=== PATIENT | male | born 1930 | race Caucasian/White ===

== ENCOUNTER 2017-10-16 07:23 | Inpatient (IN) | payer MEDICARE, BC ==
[2017-10-16] MEDS ORDERED: Sodium Chloride 0.9% 10 ML Syringe FLUSH PRN ×3 (08:18→13:45)
[2017-10-16] MEDS ORDERED: Furosemide 40 MG/4 ML VIAL IVPUSH ONE (08:18)
[2017-10-16] MEDS ORDERED: Furosemide 40 MG Tab PO ONE (08:24)
[2017-10-16] MEDS ORDERED: Albuterol/Ipratropium 3.0-0.5 MG/3 ML Neb Soln NEB ONE (08:25)
--- NOTE | 2017-10-16 08:30 | EDM.PDOC ---
ED HPI GENERAL MEDICAL PROBLEM - General Chief Complaint: Respiratory Problem Stated Complaint: SOB Time Seen by Provider: 10/16/17 08:20 Source of Information: Reports: Patient, Family, Old Records, RN History Limitations: Reports: No Limitations - History of Present Illness INITIAL COMMENTS - FREE TEXT/NARRATIVE: 87 yo male here with dyspnea. Was seen recently by rheumatology who noted the respiratory difficulty and prescribed azithromycin. Was advised to increase his furosemide starting yesterday to 40 mg orally daily for 2 days from 20. He is now out of this med and has not been able to get to the pharmacy during their hrs. Had a low grade fever a couple days ago. Cough is occasionally productive. Has a dx of asthma, but currently only takes Singulair for it. SOB is worse today with exertion. Onset: Gradual Onset Date: 10/14/17 Duration: Day(s):, Getting Worse Location: Reports: Chest Quality: Reports: Other (no pain) Severity: Moderate Improves with: Reports: Rest Worsens with: Reports: Movement Context: Reports: Other (Hx of afib/CHF/ and asthma) Associated Symptoms: Reports: Cough, Fever/Chills (not yesterday or today) Treatments SUSTAINABILITY EXECUTIVE DIRECTOR: Reports: Other (see below) (usual meds + azithromycin) Denies Pain Score (Numeric/FACES): 0 - Related Data Allergies Allergy/AdvReac Type Severity Reaction Status Date / Time No Known Allergies Allergy Verified 10/16/17 07:33 Home Meds: Home Meds Gabapentin [Neurontin] 300 mg PO TID 03/14/14 [History] Levothyroxine 112 mcg PO ACBRK 03/14/14 [History] PARoxetine [Paxil] 20 mg PO BEDTIME 03/14/14 [History] Ranitidine [Zantac] 150 mg PO BID 03/14/14 [History] predniSONE [Prednisone] 10 mg PO ASDIRECTED #21 tablet 03/16/14 [Rx] Albuterol Sulfate [Albuterol Sulfate HFA] 2 puff INH Q4H PRN 06/01/14 [History] Mometasone Furoate [Asmanex 220 MCG] 2 puff INH DAILY 06/01/14 [History] [place]-3/DHA/Epa/Fish Oil [Fish Oil Dr 500 mg Softgel] 1,000 mg PO DAILY [History] Sulfamethoxazole/Trimethoprim [Bactrim Ds Tablet] 1 tab PO DAILY 06/01/14 [ History] Terazosin [Hytrin] 5 mg PO DAILY 06/01/14 [History] Vitamin B Complex [B Complex] 1 tab PO DAILY 06/01/14 [History] Sotalol [Betapace] 80 mg PO BID #60 tablet 06/08/14 [Rx] Azithromycin [Zithromax] 250 mg PO DAILY 10/16/17 [History] Montelukast [Singulair] 10 mg PO DAILY 10/16/17 [History] Past Medical History HEENT History: Reports: Hard of Hearing, Impaired Vision Cardiovascular History: Reports: Afib, Other (See Below) 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 Respiratory History: Reports: Asthma Genitourinary History: Reports: Prostate Disorder Musculoskeletal History: Reports: Arthritis Endocrine/Metabolic History: Reports: Hypothyroidism Oncologic (Cancer) History: Reports: Squamous Cell Carcinoma Other Oncologic History: skin - Infectious Disease History Infectious Disease History: Reports: Chicken Pox - Past Surgical History HEENT Surgical History: Reports: Cataract Surgery GI Surgical History: Reports: Cholecystectomy Musculoskeletal Surgical History: Reports: Hip Replacement, Other (See Below) Other Musculoskeletal Surgeries/Procedures:: foot drop Social & Family History - Tobacco Use Smoking Status *Q: Never Smoker Second Hand Smoke Exposure: No - Caffeine Use Caffeine Use: Reports: Coffee, Soda - Alcohol Use Days Per Week of Alcohol Use: 0 - Recreational Drug Use Recreational Drug Use: No ED ROS GENERAL - Review of Systems Review Of Systems: See Below Constitutional: Reports: No Symptoms HEENT: Reports: No Symptoms Respiratory: Reports: Shortness of Breath, Wheezing, Cough, Sputum (minimal). Denies: Pleuritic Chest Pain, Hemoptysis Cardiovascular: Reports: No Symptoms GI/Abdominal: Reports: No Symptoms : Reports: No Symptoms Musculoskeletal: Reports: No Symptoms Skin: Reports: No Symptoms Neurological: Reports: No Symptoms ED EXAM, GENERAL - Physical Exam Exam: See Below Exam Limited By: No Limitations General Appearance: Alert, WD/WN, Mild Distress Eye Exam: Bilateral Eye: Normal Inspection Ears: Normal External Exam, Normal Canal, Hearing Grossly Normal, Normal TMs Ear Exam: Bilateral Ear: Auricle Normal, Canal Normal, TM normal Nose: Normal Inspection, Normal Mucosa, No Blood Throat/Mouth: Normal Inspection, Normal Lips, Normal Oropharynx, Normal Voice, No Airway Compromise Head: Atraumatic, Normocephalic Neck: Normal Inspection, Supple, Non-Tender Respiratory/Chest: No Accessory Muscle Use, Wheezing Cardiovascular: Irregularly Irregular (rate controlled), Other (trace pitting edema to both LE's below the knees.) Back Exam: Normal Inspection Extremities: Normal Inspection, Normal Range of Motion, Non-Tender, Pedal Edema. No: No Pedal Edema Neurological: Alert, Oriented, CN II-XII Intact, Normal Cognition, No Motor/ Sensory Deficits Psychiatric: Normal Affect, Normal Mood Skin Exam: Warm, Dry, Intact, Normal Color, No Rash Course - Vital Signs Text/Narrative:: furosemide 40 mg po Duoneb-modest improvement, sats are up to low 90's Dr. Mendoza called @ 11:39a Last Recorded V/S: Last Vital Signs Temp 36.3 C 10/16/17 08:03 Pulse 67 10/16/17 08:00 Resp 25 H 10/16/17 08:00 BP 105/64 10/16/17 08:00 Pulse Ox 91 L 10/16/17 08:00 - Orders/Labs/Meds Orders: Active Orders 24 hr Category Date Time Status RT Aerosol Therapy [RC] ASDIRECTED Care 10/16/17 08:25 Active RT Aerosol Therapy [RC] ASDIRECTED Care 10/16/17 08:58 Active Echo Comp wo Cont [US] Routine Exams 10/16/17 09:18 Ordered Sodium Chloride 0.9% [Saline Flush] Med 10/16/17 08:57 Active 10 ml FLUSH ASDIRECTED PRN Saline Lock Insert [OM.PC] Routine Oth 10/16/17 08:57 Ordered Medication Orders Sodium Chloride (Saline Flush) 10 ml FLUSH ASDIRECTED PRN PRN Reason: Keep Vein Open Last Admin: 10/16/17 09:43 Dose: 10 ml Labs: Laboratory Tests 10/16/17 10/16/17 Range/Units 09:10 09:10 WBC 6.7 (4.5-11.0) K/uL RBC 3.87 L (4.30-5.90) M/uL Hgb 12.2 (12.0-15.0) g/dL Hct 35.9 L (40.0-54.0) % MCV 93 (80-98) fL MCH 32 H (27-31) pg MCHC 34 (32-36) % Plt Count 131 L (150-400) K/uL Sodium 131 L (140-148) mmol/L Potassium 4.3 (3.6-5.2) mmol/L Chloride 96 L (100-108) mmol/L Carbon Dioxide 27 (21-32) mmol/L Anion Gap 12.3 (5.0-14.0) mmol/L BUN 25 H (7-18) mg/dL Creatinine 1.5 H D (0.8-1.3) mg/dL Est Cr Clr Drug Dosing 32.38 mL/min Estimated GFR (MDRD) 44 L (>60) Glucose 100 (74-106) mg/dL Calcium 8.8 (8.5-10.1) mg/dL NT-Pro-B Natriuret Pep 4258 H (5-450) pg/mL Meds: Medications Generic Name Dose Route Start Last Admin Trade Name Freq PRN Reason Stop Dose Admin Sodium Chloride 10 ml 10/16/17 08:57 10/16/17 09:43 Saline Flush FLUSH 10 ml ASDIRECTED PRN Administration Keep Vein Open Discontinued Medications Generic Name Dose Route Start Last Admin Trade Name Freq PRN Reason Stop Dose Admin Albuterol 2.5 mg 10/16/17 08:58 10/16/17 09:44 Proventil Neb Soln NEB 10/16/17 08:59 2.5 mg ONETIME ONE Administration Albuterol/Ipratropium 3 ml 10/16/17 08:25 10/16/17 08:37 Duoneb 3.0-0.5 Mg/3 Ml NEB 10/16/17 08:26 3 ml ONETIME ONE Administration Furosemide 40 mg 10/16/17 08:18 Lasix IVPUSH 10/16/17 08:19 ONETIME ONE Furosemide 40 mg 10/16/17 08:24 10/16/17 08:36 Lasix PO 10/16/17 08:25 40 mg ONETIME ONE Administration Methylprednisolone Sodium Succinate 40 mg 10/16/17 08:56 10/16/17 09:43 Solu-Medrol IVPUSH 10/16/17 08:57 40 mg ONETIME ONE Administration Sodium Chloride 10 ml 10/16/17 08:18 Saline Flush FLUSH ASDIRECTED PRN Keep Vein Open - Radiology Interpretation Free Text/Narrative:: CXR-cardiomegaly, atelectasis vs. infiltrate, slight interstitial edema Departure - Departure Time of Disposition: 11:50 Disposition: Refer to Observation Condition: Fair Clinical Impression: Hyponatremia Exacerbation of asthma Qualifiers: Asthma severity: moderate Asthma persistence: unspecified Qualified Code(s): J45.901 - Unspecified asthma with (acute) exacerbation CHF (congestive heart failure) Qualifiers: Heart failure type: unspecified Heart failure chronicity: acute on chronic Qualified Code(s): I50.9 - Heart failure, unspecified - Discharge Information Referrals: Sander Coleman MD [Primary Care Provider] - Forms: ED Department Discharge - My Orders Last 24 Hours: My Active Orders 10/16/17 08:25 RT Aerosol Therapy [RC] ASDIRECTED 10/16/17 08:57 Sodium Chloride 0.9% [Saline Flush] 10 ml FLUSH ASDIRECTED PRN Saline Lock Insert [OM.PC] Routine 10/16/17 08:58 RT Aerosol Therapy [RC] ASDIRECTED 10/16/17 09:18 Echo Comp wo Cont [US] Routine - Assessment/Plan Last 24 Hours: My Active Orders 10/16/17 08:25 RT Aerosol Therapy [RC] ASDIRECTED 10/16/17 08:57 Sodium Chloride 0.9% [Saline Flush] 10 ml FLUSH ASDIRECTED PRN Saline Lock Insert [OM.PC] Routine 10/16/17 08:58 RT Aerosol Therapy [RC] ASDIRECTED 10/16/17 09:18 Echo Comp wo Cont [US] Routine
[2017-10-16] MEDS ORDERED: methylPREDNISolone Sodium Succinate 40 MG/1 ML SDV IVPUSH ONE (08:56)
[2017-10-16] MEDS ORDERED: Albuterol 0.083% 2.5 MG/3 ML Neb Soln NEB ONE (08:58)
--- NOTE | 2017-10-16 09:56 | CR ---
CHEST: 2 view CLINICAL HISTORY:Shortness of breath and wheezing COMPARISON:None available FINDINGS: The heart is enlarged. There is mild pulmonary vascular cephalization. There is mild gener alized interstitial prominence. There is patchy density in the lung bases and right middle lobe. This may represent some patchy atelectasis. Pneumonic infiltrate is not excluded the in the appropriate c linical setting. There are small bibasal effusions. IMPRESSION: Cardiomegaly with moderate vascular cephalization some interstitial edema suggests mild CHF. The There is some patchy density in both lung bases. The superimposed pneumonic infiltrate is not exclude d
[2017-10-16] MEDS ORDERED: Metoprolol Tartrate 50 MG Tab PO SCH (13:45)
[2017-10-16] MEDS ORDERED: Albuterol 0.083% 2.5 MG/3 ML Neb Soln NEB PRN (13:45)
[2017-10-16] MEDS ORDERED: Polyethylene Glycol 3350 Powder 17 GM Packet PO PRN (13:45)
[2017-10-16] MEDS ORDERED: Magnesium Hydroxide 400 MG/5 ML Susp 30 ML Cup PO PRN (13:45)
[2017-10-16] MEDS ORDERED: Ondansetron 4 MG/2 ML SDV IV PRN (13:45)
[2017-10-16] MEDS ORDERED: Acetaminophen 325 MG Tab PO PRN (13:45)
[2017-10-16] MEDS ORDERED: Montelukast 10 MG Tab PO SCH (13:45)
[2017-10-16] MEDS ORDERED: oxyCODONE 5 MG Tab PO PRN (13:45)
[2017-10-16] MEDS: Albuterol/Ipratropium 3.0-0.5 MG/3 ML Neb Soln NEB SCH ×2 (14:33→21:43)
[2017-10-16] MEDS: Mometasone Furoate Powder 220 MCG/Puff 14 Dose Inhaler INH SCH (14:35)
[2017-10-16] MEDS: Levofloxacin/Dextrose 5%-Water 500 MG in Premix Bag 1 BAG IV SCH (14:56)
[2017-10-16] MEDS: Enoxaparin 40 MG/0.4 ML Syringe SUBCUT SCH (15:01)
[2017-10-16] MEDS: Levothyroxine 112 MCG Tab PO SCH (15:04)
[2017-10-16] MEDS: Sulfamethoxazole/Trimethoprim 800-160 MG Tab PO SCH (15:05)
[2017-10-16] MEDS: Terazosin 5 MG Cap PO SCH (15:05)
[2017-10-16] MEDS: Gabapentin 300 MG Cap PO SCH ×2 (15:08→21:43)
--- NOTE | 2017-10-16 15:11 | PCM.HP ---
H&P History of Present Illness - General Date of Service: 10/16/17 Admit Problem/Dx: Admission Diagnosis/Problem Admission Diagnosis/Problem Hypoxia Source of Information: Patient, Family, Provider, RN Notes Reviewed History Limitations: Reports: No Limitations - History of Present Illness Initial Comments - Free Text/Narative: This patient is an 87-year-old gentleman who was admitted through the emergency department for further evaluation and management of hypoxia, secondary to COPD exacerbation and underlying bronchitis. He has a known history of multiple medical problems including known coronary artery disease, congestive heart failure, as well as significant aortic valvular disease. He had been previously scheduled for aortic valve replacement, surgery was canceled when he developed a respiratory tract infection. Since then he has decided he wants to hold off on the valvular surgery as he had been doing fairly well for a few months. Now over the past 2 days his developed increased shortness of breath with a cough productive of colored sputum. He was seen and evaluated in the clinic yesterday by his operational intelligence officer, at that time he was started on a course of azithromycin. Unfortunately this is not helped significantly and he presented to the emergency department this morning because of ongoing severe shortness of breath. Initially was found to be hypoxic, this has improved in the emergency department with management including nebulizer therapy and Solu-Medrol. He has had temperature elevation over the past few days. White blood cell count is within normal range and chest x-ray shows evidence of pulmonary edema. He denies any current symptoms of chest pain or pressure. Denies Pain Score (Numeric/FACES): 0 - Related Data Allergies/Adverse Reactions: Allergies Allergy/AdvReac Type Severity Reaction Status Date / Time No Known Allergies Allergy Verified 10/16/17 07:33 Home Medications: Home Meds Gabapentin [Neurontin] 300 mg PO TID 03/14/14 [History] Levothyroxine 112 mcg PO ACBRK 03/14/14 [History] PARoxetine [Paxil] 20 mg PO BEDTIME 03/14/14 [History] Ranitidine [Zantac] 150 mg PO BID 03/14/14 [History] predniSONE [Prednisone] 10 mg PO ASDIRECTED #21 tablet 03/16/14 [Rx] Albuterol Sulfate [Albuterol Sulfate HFA] 2 puff INH Q4H PRN 06/01/14 [History] Mometasone Furoate [Asmanex 220 MCG] 2 puff INH DAILY 06/01/14 [History] [place]-3/DHA/Epa/Fish Oil [Fish Oil Dr 500 mg Softgel] 1,000 mg PO DAILY [History] Sulfamethoxazole/Trimethoprim [Bactrim Ds Tablet] 1 tab PO DAILY 06/01/14 [ History] Terazosin [Hytrin] 5 mg PO DAILY 06/01/14 [History] Vitamin B Complex [B Complex] 1 tab PO DAILY 06/01/14 [History] Sotalol [Betapace] 80 mg PO BID #60 tablet 06/08/14 [Rx] Azithromycin [Zithromax] 250 mg PO DAILY 10/16/17 [History] Montelukast [Singulair] 10 mg PO DAILY 10/16/17 [History] Past Medical History HEENT History: Reports: Hard of Hearing, Impaired Vision Cardiovascular History: Reports: Afib, Other (See Below) 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 Respiratory History: Reports: Asthma Genitourinary History: Reports: Prostate Disorder Musculoskeletal History: Reports: Arthritis Endocrine/Metabolic History: Reports: Hypothyroidism Oncologic (Cancer) History: Reports: Squamous Cell Carcinoma Other Oncologic History: skin - Infectious Disease History Infectious Disease History: Reports: Chicken Pox - Past Surgical History HEENT Surgical History: Reports: Cataract Surgery GI Surgical History: Reports: Cholecystectomy Musculoskeletal Surgical History: Reports: Hip Replacement, Other (See Below) Other Musculoskeletal Surgeries/Procedures:: foot drop Social & Family History - Tobacco Use Smoking Status *Q: Never Smoker Second Hand Smoke Exposure: No - Caffeine Use Caffeine Use: Reports: Coffee Other Caffeine Use: 3 cups per day - Alcohol Use Days Per Week of Alcohol Use: 0 - Recreational Drug Use Recreational Drug Use: No H&P Review of Systems - Review of Systems: Review Of Systems: See Below General: Reports: Fever, Chills, Weakness, Decreased Appetite HEENT: Reports: No Symptoms Pulmonary: Reports: Shortness of Breath, Wheezing, Cough, Sputum. Denies: Pleuritic Chest Pain, Hemoptysis Cardiovascular: Reports: Dyspnea on Exertion. Denies: Chest Pain, Palpitations , Orthopnea, PND, Edema, Lightheadedness Gastrointestinal: Reports: No Symptoms Genitourinary: Reports: No Symptoms Musculoskeletal: Reports: No Symptoms Skin: Reports: No Symptoms Psychiatric: Reports: No Symptoms Neurological: Reports: No Symptoms Hematologic/Lymphatic: Reports: No Symptoms Immunologic: Reports: No Symptoms Exam - Exam Exam: See Below - Vital Signs Vital Signs: Last Vital Signs Temp 99.2 F 10/16/17 13:45 Pulse 69 10/16/17 13:45 Resp 20 10/16/17 13:45 BP 115/80 10/16/17 13:45 Pulse Ox 90 L 10/16/17 13:45 Weight: 192 lb - Exam Quality Assessment: DVT Prophylaxis General: Alert, Oriented, Cooperative, Mild Distress HEENT: Conjunctiva Clear, Hearing Intact, Mucosa Moist & [place], Normal Nasal Septum, Posterior Pharynx Clear, Pupils Equal Neck: Supple, Trachea Midline, +2 Carotid Pulse wo Bruit Lungs: Decreased Breath Sounds, Rhonchi, Wheezing. No: Crackles, Rales Cardiovascular: Regular Rate, Regular Rhythm, Normal S1, Normal S2, Systolic Murmur, Diastolic Murmur GI/Abdominal Exam: Soft, Non-Tender, No Organomegaly, No Distention Back Exam: Normal Inspection, Full Range of Motion Extremities: Non-Tender, No Pedal Edema Skin: Warm, Dry, Intact Neurological: Cranial Nerves Intact, Strength Equal Bilateral, Normal Speech, Normal Tone, Sensation Intact. No: Focal Deficit Neuro Extensive - Mental Status: Alert, Oriented x3, Normal Mood/Affect, Normal Cognition, Memory Intact - Patient Data Lab Results Last 24 hrs: Laboratory Results - last 24 hr 10/16/17 10/16/17 Range/Units 09:10 09:10 WBC 6.7 (4.5-11.0) K/uL RBC 3.87 L (4.30-5.90) M/uL Hgb 12.2 (12.0-15.0) g/dL Hct 35.9 L (40.0-54.0) % MCV 93 (80-98) fL MCH 32 H (27-31) pg MCHC 34 (32-36) % Plt Count 131 L (150-400) K/uL Sodium 131 L (140-148) mmol/L Potassium 4.3 (3.6-5.2) mmol/L Chloride 96 L (100-108) mmol/L Carbon Dioxide 27 (21-32) mmol/L Anion Gap 12.3 (5.0-14.0) mmol/L BUN 25 H (7-18) mg/dL Creatinine 1.5 H D (0.8-1.3) mg/dL Est Cr Clr Drug Dosing 32.38 mL/min Estimated GFR (MDRD) 44 L (>60) Glucose 100 (74-106) mg/dL Calcium 8.8 (8.5-10.1) mg/dL NT-Pro-B Natriuret Pep 4258 H (5-450) pg/mL Result Diagrams: 10/16/17 09:10 10/16/17 09:10 *Q Meaningful Use (ADM) - VTE Risk Assess *Q Each Risk Factor Represents 1 Point: Obesity ( BMI > 25 kg/m2), Congestive heart failure (CHF), Abnormal Pulmonary Function (COPD) Total Score 1 Point Risk Factors: 3 Each Risk Factor Represents 2 Points: None Total Score 2 Point Risk Factors: 0 Each Risk Factor Represents 3 Points: Age 75 Years or Greater Total Score 3 Point Risk Factors: 3 Each Risk Factor Represents 5 Points: None Total Score 5 Point Risk Factors: 0 Venous Thromboembolism Risk Factor Score *Q: 6 Problem List Initiated/Reviewed/Updated: Yes Orders Last 24hrs: Active Orders 24 hr Category Date Time Status Patient Status [ADT] Routine ADT 10/16/17 13:45 Active Ambulate [RC] QID Care 10/16/17 13:45 Active Height and Weight [RC] DAILY Care 10/16/17 13:45 Active Intake and Output [RC] QSHIFT Care 10/16/17 13:45 Active Notify Provider Vital Signs [RC] ASDIRECTED Care 10/16/17 13:45 Active Oxygen Therapy [RC] PRN Care 10/16/17 13:45 Active Pulse Oximetry [RC] CONTINUOUS Care 10/16/17 13:45 Active RT Aerosol Therapy [RC] ASDIRECTED Care 10/16/17 08:25 Active RT Aerosol Therapy [RC] ASDIRECTED Care 10/16/17 13:45 Active Up With Assistance [RC] ASDIRECTED Care 10/16/17 13:45 Active Up to Chair [RC] QID Care 10/16/17 13:45 Active VTE/DVT Education [RC] Per Unit Routine Care 10/16/17 13:45 Active Vital Signs [RC] Q4H Care 10/16/17 13:45 Active 2 Gram Sodium Diet [DIET] Diet 10/16/17 Lunch Active Echo Comp wo Cont [US] Routine Exams 10/16/17 09:18 Stop Req BASIC METABOLIC PANEL,BMP [CHEM] AM Lab 10/17/17 05:11 Ordered CBC WITH AUTO DIFF [HEME] AM Lab 10/17/17 05:11 Ordered INFLUENZA A+B AG SCREEN [RM] Stat Lab 10/16/17 13:45 Ordered MAGNESIUM [CHEM] AM Lab 10/17/17 05:11 Ordered Acetaminophen [Tylenol] Med 10/16/17 13:45 Active 650 mg PO Q4H PRN Albuterol [Proventil Neb Soln] Med 10/16/17 13:45 Active 2.5 mg NEB Q4H PRN Albuterol/Ipratropium [DuoNeb 3.0-0.5 MG/3 ML] Med 10/16/17 15:00 Active 3 ml NEB QIDRT Docusate Sodium/Sennosides [Senna Plus] Med 10/16/17 13:45 Active 1 tab PO BID PRN Enoxaparin [Lovenox] Med 10/16/17 14:00 Active 40 mg SUBCUT Q24H Gabapentin [Neurontin] Med 10/16/17 14:00 Active 300 mg PO TID Levofloxacin/Dextrose 5%-Water [Levaquin in D5W 500 MG/ Med 10/16/17 14:00 Active 100 ML] 500 mg Premix Bag 1 bag IV Q24H Levothyroxine Med 10/16/17 13:45 Active 112 mcg PO ACBRK Magnesium Hydroxide [Milk of Magnesia] Med 10/16/17 13:45 Active 30 ml PO Q12H PRN Metoprolol Tartrate [Lopressor] Med 10/16/17 13:45 Active 50 mg PO BID Mometasone Furoate [Asmanex 220 MCG] Med 10/16/17 13:45 Active 2 puff INH DAILY@0730 Montelukast [Singulair] Med 10/16/17 13:45 Active 10 mg PO DAILY Ondansetron [Zofran] Med 10/16/17 13:45 Active 4 mg IV Q4H PRN PARoxetine [Paxil] Med 10/16/17 21:00 Active 20 mg PO BEDTIME Polyethylene Glycol 3350 [MiraLAX] Med 10/16/17 13:45 Active 17 gm PO DAILY PRN Ranitidine [Zantac] Med 10/16/17 14:15 Active 150 mg PO BID Sodium Chloride 0.9% [Saline Flush] Med 10/16/17 13:45 Active 10 ml FLUSH ASDIRECTED PRN Sulfamethoxazole/Trimethoprim [Septra DS] Med 10/16/17 13:45 Active 1 tab PO DAILY Terazosin [Hytrin] Med 10/16/17 13:45 Active 5 mg PO DAILY methylPREDNISolone Sod Succ [Solu-MEDROL] Med 10/16/17 16:00 Active 40 mg IVPUSH Q6H oxyCODONE Med 10/16/17 13:45 Active 5 mg PO Q4H PRN Saline Lock Insert [OM.PC] Routine Oth 10/16/17 13:45 Ordered Resuscitation Status Routine Resus Stat 10/16/17 13:03 Ordered Medication Orders Acetaminophen (Tylenol) 650 mg PO Q4H PRN PRN Reason: Pain (Mild 1-3)/fever Albuterol (Proventil Neb Soln) 2.5 mg NEB Q4H PRN PRN Reason: Shortness Of Breath/wheezing Albuterol/Ipratropium (Duoneb 3.0-0.5 Mg/3 Ml) 3 ml NEB QIDRT [facility] Last Admin: 10/16/17 14:33 Dose: 3 ml Enoxaparin Sodium (Lovenox) 40 mg SUBCUT Q24H [facility] Last Admin: 10/16/17 15:01 Dose: 40 mg Gabapentin (Neurontin) 300 mg PO TID [facility] Levofloxacin/Dextrose 500 mg/ (Premix) 100 mls @ 100 mls/hr IV Q24H [facility] Last Admin: 10/16/17 14:56 Dose: 100 mls/hr Levothyroxine Sodium (Levothyroxine) 112 mcg PO ACBRK [facility] Magnesium Hydroxide (Milk Of Magnesia) 30 ml PO Q12H PRN PRN Reason: Constipation Methylprednisolone Sodium Succinate (Solu-Medrol) 40 mg IVPUSH Q6H [facility] Metoprolol Tartrate (Lopressor) 50 mg PO BID [facility] Mometasone Furoate (Asmanex 220 Mcg) 2 puff INH DAILY@0730 [facility] Last Admin: 10/16/17 14:35 Dose: Not Given Montelukast Sodium (Singulair) 10 mg PO DAILY [facility] Ondansetron HCl (Zofran) 4 mg IV Q4H PRN PRN Reason: Nausea/Vomiting Oxycodone HCl (Oxycodone) 5 mg PO Q4H PRN PRN Reason: Pain (moderate 4-6) Paroxetine HCl (Paxil) 20 mg PO BEDTIME [facility] Polyethylene Glycol (Miralax) 17 gm PO DAILY PRN PRN Reason: Constipation Ranitidine HCl (Zantac) 150 mg PO BID [facility] [place]/Docusate Sodium (Senna Plus) 1 tab PO BID PRN PRN Reason: Constipation Sodium Chloride (Saline Flush) 10 ml FLUSH ASDIRECTED PRN PRN Reason: Keep Vein Open Terazosin HCl (Hytrin) 5 mg PO DAILY [facility] Trimethoprim/Sulfamethoxazole (Septra Ds) 1 tab PO DAILY [facility] Assessment/Plan Comment:: ASSESSMENT AND PLAN COPD EXACERBATION SECONDARY TO BRONCHITIS-increased shortness of breath with cough over the past 48 hours, normal white blood cell count. Probable viral upper respiratory tract infection, cannot rule out bacterial infection. -Supplemental oxygen as needed -Nebulized albuterol and duo nebs -Solu-Medrol 40 mg IV every 6 hours -Influenza a and B antigens pending -Levofloxacin 500 mg IV every 24 hours EXACERBATION OF SYSTOLIC CONGESTIVE HEART FAILURE-chest x-ray shows evidence of pulmonary edema, IV furosemide given in the emergency department. Echocardiogram obtained shows ejection fraction of 30-35% with significant underlying aortic and mitral valvular disease. -Continue outpatient medical regimen -Reassess in a.m. 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 -Management as above CHRONIC KIDNEY DISEASE STAGE III -Monitor urine output and renal function closely during hospital stay MAINTENANCE ISSUES -DVT prophylaxis; Lovenox 40 mg subcutaneous daily -GI prophylaxis; not indicated -Madden catheter; not indicated -Nutrition; 2 g sodium diet -Nicotine dependence; not required CODE STATUS-FULL CODE ADMISSION STATUS-patient will be admitted to inpatient status, expect at least a 2 night hospital stay for evaluation and management of problems as outlined above. At the time of this admission I do not reasonably expected evaluation and management of this problem will require more than a 96 hour hospital stay. DISPOSITION-anticipate discharge to home after the hospital stay. PRIMARY CARE PROVIDER-Dr. Coleman
[2017-10-16] MEDS: methylPREDNISolone Sodium Succinate 40 MG/1 ML SDV IVPUSH SCH ×2 (15:47→21:47)
[2017-10-16] MEDS: Metoprolol Succinate 25 MG Tab.ER PO SCH (21:43)
[2017-10-16] MEDS: PARoxetine 20 MG Tab PO SCH (21:43)
[2017-10-17] MEDS: methylPREDNISolone Sodium Succinate 40 MG/1 ML SDV IVPUSH SCH ×4 (04:15→22:11)
[2017-10-17] MEDS: Mometasone Furoate Powder 220 MCG/Puff 14 Dose Inhaler INH SCH (07:29)
[2017-10-17] MEDS: Albuterol/Ipratropium 3.0-0.5 MG/3 ML Neb Soln NEB SCH ×4 (07:29→20:59)
[2017-10-17] MEDS: Gabapentin 300 MG Cap PO SCH ×3 (08:18→20:55)
[2017-10-17] MEDS: Terazosin 5 MG Cap PO SCH (08:18)
[2017-10-17] MEDS: Levothyroxine 112 MCG Tab PO SCH (08:18)
[2017-10-17] MEDS: Sulfamethoxazole/Trimethoprim 800-160 MG Tab PO SCH (08:18)
[2017-10-17] MEDS: Metoprolol Succinate 25 MG Tab.ER PO SCH ×2 (08:19→20:56)
[2017-10-17] MEDS ORDERED: Furosemide 40 MG/4 ML VIAL IVPUSH ONE (12:02)
--- NOTE | 2017-10-17 12:08 | PCM.PN ---
- General Info Date of Service: 10/17/17 Subjective Update: Mr. Callaway is been stable since admission and has noted improvement in his respiratory status. Shortness of breath is significantly improved, with improvement in oxygenation. Cough is less frequent and he has had less wheezing. Vital signs have been stable and he has remained afebrile. Functional Status: Reports: Tolerating Diet, Urinating - Review of Systems General: Reports: Weakness. Denies: Fever, Chills Pulmonary: Reports: Shortness of Breath, Cough. Denies: Pleuritic Chest Pain, Sputum, Hemoptysis, Wheezing Cardiovascular: Reports: Dyspnea on Exertion. Denies: Chest Pain, Palpitations , Orthopnea, PND, Edema Gastrointestinal: Reports: No Symptoms - Patient Data Vitals - Most Recent: Last Vital Signs Temp 98.3 F 10/17/17 07:15 Pulse 83 10/17/17 11:22 Resp 16 10/17/17 07:15 BP 116/51 L 10/17/17 08:19 Pulse Ox 92 L 10/17/17 11:22 Weight - Most Recent: 192 lb 0.009 oz I&O - Last 24 Hours: Intake & Output 10/16/17 10/17/17 10/17/17 22:59 06:59 14:59 Intake Total 240 480 300 Output Total 260 100 Balance -20 380 300 Lab Results Last 24 Hours: Laboratory Results - last 24 hr 10/17/17 10/17/17 Range/Units 05:47 05:47 WBC 4.9 (4.5-11.0) K/uL RBC 3.85 L (4.30-5.90) M/uL Hgb 12.2 (12.0-15.0) g/dL Hct 35.2 L (40.0-54.0) % MCV 91 (80-98) fL MCH 32 H (27-31) pg MCHC 35 (32-36) % Plt Count 152 (150-400) K/uL Neut % (Auto) 78 H (36-66) % Lymph % (Auto) 16 L (24-44) % [place] % (Auto) 6 (2-6) % Eos % (Auto) 0 L (2-4) % Baso % (Auto) 0 (0-1) % Sodium 135 L (140-148) mmol/L Potassium 4.7 (3.6-5.2) mmol/L Chloride 99 L (100-108) mmol/L Carbon Dioxide 27 (21-32) mmol/L Anion Gap 13.7 (5.0-14.0) mmol/L BUN 27 H (7-18) mg/dL Creatinine 1.5 H (0.8-1.3) mg/dL Est Cr Clr Drug Dosing 32.38 mL/min Estimated GFR (MDRD) 44 L (>60) Glucose 138 H (74-106) mg/dL Calcium 8.8 (8.5-10.1) mg/dL Magnesium 2.1 (1.8-2.4) mg/dL Deep Results Last 24 Hours: Microbiology 10/16/17 13:45 Influenza Type A Antigen Screen - Final Nasopharyngeal Swab NEGATIVE INFLUENZA A VIRUS AG Influenza Type B Antigen Screen - Final NEGATIVE INFLUENZA B VIRUS AG Med Orders - Current: Current Medications Acetaminophen (Tylenol) 650 mg PO Q4H PRN PRN Reason: Pain (Mild 1-3)/fever Albuterol (Proventil Neb Soln) 2.5 mg NEB Q4H PRN PRN Reason: Shortness Of Breath/wheezing Albuterol/Ipratropium (Duoneb 3.0-0.5 Mg/3 Ml) 3 ml NEB QIDRT [facility] Last Admin: 10/17/17 11:22 Dose: 3 ml Enoxaparin Sodium (Lovenox) 40 mg SUBCUT Q24H [facility] Last Admin: 10/16/17 15:01 Dose: 40 mg Furosemide (Lasix) 60 mg IVPUSH ONETIME ONE Stop: 10/17/17 12:03 Gabapentin (Neurontin) 300 mg PO TID [facility] Last Admin: 10/17/17 08:18 Dose: 300 mg Levofloxacin/Dextrose 500 mg/ (Premix) 100 mls @ 100 mls/hr IV Q24H [facility] Last Admin: 10/16/17 14:56 Dose: 100 mls/hr Levothyroxine Sodium (Levothyroxine) 112 mcg PO ACBRK [facility] Last Admin: 10/17/17 08:18 Dose: 112 mcg Magnesium Hydroxide (Milk Of Magnesia) 30 ml PO Q12H PRN PRN Reason: Constipation Methylprednisolone Sodium Succinate (Solu-Medrol) 40 mg IVPUSH Q6H [facility] Last Admin: 05/04/18 10:53 Dose: 40 mg Metoprolol Succinate (Toprol Xl) 25 mg PO BID [facility] Last Admin: 10/17/17 08:19 Dose: 25 mg Mometasone Furoate (Asmanex 220 Mcg) 2 puff INH DAILY@0730 [facility] Last Admin: 10/17/17 07:29 Dose: 2 puff Montelukast Sodium (Singulair) 10 mg PO BEDTIME [facility] Ondansetron HCl (Zofran) 4 mg IV Q4H PRN PRN Reason: Nausea/Vomiting Oxycodone HCl (Oxycodone) 5 mg PO Q4H PRN PRN Reason: Pain (moderate 4-6) Paroxetine HCl (Paxil) 20 mg PO BEDTIME [facility] Last Admin: 10/16/17 21:43 Dose: 20 mg Polyethylene Glycol (Miralax) 17 gm PO DAILY PRN PRN Reason: Constipation Ranitidine HCl (Zantac) 150 mg PO BID [facility] Last Admin: 10/17/17 08:19 Dose: 150 mg Senna/Docusate Sodium (Senna Plus) 1 tab PO BID PRN PRN Reason: Constipation Sodium Chloride (Saline Flush) 10 ml FLUSH ASDIRECTED PRN PRN Reason: Keep Vein Open Terazosin HCl (Hytrin) 5 mg PO BEDTIME [facility] Trimethoprim/Sulfamethoxazole (Septra Ds) 1 tab PO DAILY [facility] Last Admin: 10/17/17 08:18 Dose: 1 tab Discontinued Medications Albuterol (Proventil Neb Soln) 2.5 mg NEB ONETIME ONE Stop: 10/16/17 08:59 Last Admin: 10/16/17 09:44 Dose: 2.5 mg Albuterol/Ipratropium (Duoneb 3.0-0.5 Mg/3 Ml) 3 ml NEB ONETIME ONE Stop: 10/16/17 08:26 Last Admin: 10/16/17 08:37 Dose: 3 ml Furosemide (Lasix) 40 mg IVPUSH ONETIME ONE Stop: 10/16/17 08:19 Last Admin: 10/16/17 15:28 Dose: Not Given Furosemide (Lasix) 40 mg PO ONETIME ONE Stop: 10/16/17 08:25 Last Admin: 10/16/17 08:36 Dose: 40 mg Methylprednisolone Sodium Succinate (Solu-Medrol) 40 mg IVPUSH ONETIME ONE Stop: 10/16/17 08:57 Last Admin: 10/16/17 09:43 Dose: 40 mg Metoprolol Tartrate (Lopressor) 50 mg PO BID [facility] Last Admin: 10/16/17 15:29 Dose: Not Given Montelukast Sodium (Singulair) 10 mg PO DAILY [facility] Last Admin: 10/16/17 15:04 Dose: 10 mg Sodium Chloride (Saline Flush) 10 ml FLUSH ASDIRECTED PRN PRN Reason: Keep Vein Open Sodium Chloride (Saline Flush) 10 ml FLUSH ASDIRECTED PRN PRN Reason: Keep Vein Open Last Admin: 10/16/17 09:43 Dose: 10 ml Terazosin HCl (Hytrin) 5 mg PO DAILY [facility] Last Admin: 10/17/17 08:18 Dose: 5 mg - Exam Quality Assessment: Supplemental Oxygen, DVT Prophylaxis General: Alert, Cooperative Lungs: Clear to Auscultation, Normal Respiratory Effort, Decreased Breath Sounds Cardiovascular: Regular Rate, Regular Rhythm, No Murmurs GI/Abdominal Exam: Soft, Non-Tender, No Organomegaly, No Distention Extremities: Non-Tender, No Pedal Edema Skin: Warm, Dry, Intact - Problem List Review Problem List Initiated/Reviewed/Updated: Yes - My Orders Last 24 Hours: My Active Orders 10/16/17 13:03 Resuscitation Status Routine 10/16/17 13:45 Patient Status [ADT] Routine Ambulate [RC] QID Height and Weight [RC] 0500 Intake and Output [RC] QSHIFT Notify Provider Vital Signs [RC] ASDIRECTED Oxygen Therapy [RC] PRN Pulse Oximetry [RC] CONTINUOUS Up With Assistance [RC] ASDIRECTED Up to Chair [RC] QID VTE/DVT Education [RC] Per Unit Routine Vital Signs [RC] Q4H INFLUENZA A+B AG SCREEN [RM] Stat Acetaminophen [Tylenol] 650 mg PO Q4H PRN Albuterol [Proventil Neb Soln] 2.5 mg NEB Q4H PRN Docusate Sodium/Sennosides [Senna Plus] 1 tab PO BID PRN Levothyroxine 112 mcg PO ACBRK Magnesium Hydroxide [Milk of Magnesia] 30 ml PO Q12H PRN Mometasone Furoate [Asmanex 220 MCG] 2 puff INH DAILY@0730 Ondansetron [Zofran] 4 mg IV Q4H PRN Polyethylene Glycol 3350 [MiraLAX] 17 gm PO DAILY PRN Sodium Chloride 0.9% [Saline Flush] 10 ml FLUSH ASDIRECTED PRN Sulfamethoxazole/Trimethoprim [Septra DS] 1 tab PO DAILY oxyCODONE 5 mg PO Q4H PRN Saline Lock Insert [OM.PC] Routine 10/16/17 14:00 Enoxaparin [Lovenox] 40 mg SUBCUT Q24H Gabapentin [Neurontin] 300 mg PO TID Levofloxacin/Dextrose 5%-Water [Levaquin in D5W 500 MG/100 ML] 500 mg Premix Bag 1 bag IV Q24H 10/16/17 14:15 Ranitidine [Zantac] 150 mg PO BID 10/16/17 15:00 Albuterol/Ipratropium [DuoNeb 3.0-0.5 MG/3 ML] 3 ml NEB QIDRT 10/16/17 16:00 methylPREDNISolone Sod Succ [Solu-MEDROL] 40 mg IVPUSH Q6H 10/16/17 21:00 Metoprolol Succinate [Toprol XL] 25 mg PO BID PARoxetine [Paxil] 20 mg PO BEDTIME 10/16/17 Lunch 2 Gram Sodium Diet [DIET] 10/17/17 12:02 Furosemide [Lasix] 60 mg IVPUSH ONETIME ONE 10/17/17 21:00 Montelukast [Singulair] 10 mg PO BEDTIME 10/18/17 05:00 BASIC METABOLIC PANEL,BMP [CHEM] Timed 10/18/17 09:00 Furosemide [Lasix] 40 mg PO DAILY 10/18/17 21:00 Terazosin [Hytrin] 5 mg PO BEDTIME - Plan Plan:: ASSESSMENT AND PLAN COPD EXACERBATION SECONDARY TO BRONCHITIS-improved since admission with less shortness of breath and cough. Oxygen saturations better with lower level of supplemental oxygen, has been afebrile. -Supplemental oxygen as needed -Nebulized albuterol and duo nebs -Solu-Medrol 40 mg IV every 6 hours -Levofloxacin 500 mg IV every 24 hours EXACERBATION OF SYSTOLIC CONGESTIVE HEART FAILURE-chest x-ray shows evidence of pulmonary edema, IV furosemide given in the emergency department. Echocardiogram obtained shows ejection fraction of 30-35% with significant underlying aortic and mitral valvular disease. -Furosemide 60 mg IV today -Start furosemide 40 mg by mouth daily tomorrow. 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 -Management as above CHRONIC KIDNEY DISEASE STAGE III-renal function has been stable since admission -Monitor urine output and renal function closely during hospital stay MAINTENANCE ISSUES -DVT prophylaxis; Lovenox 40 mg subcutaneous daily -GI prophylaxis; not indicated -Madden catheter; not indicated -Nutrition; 2 g sodium diet -Nicotine dependence; not required CODE STATUS-FULL CODE ADMISSION STATUS-patient will be admitted to inpatient status, expect at least a 2 night hospital stay for evaluation and management of problems as outlined above. At the time of this admission I do not reasonably expected evaluation and management of this problem will require more than a 96 hour hospital stay. DISPOSITION-anticipate discharge to home after the hospital stay. PRIMARY CARE PROVIDER-Dr. Coleman
[2017-10-17] MEDS ORDERED: Furosemide 40 MG, Furosemide 20 MG IV ONE ×2 (12:15)
[2017-10-17] MEDS: Lactobacillus Rhamnosus GG (Probiotic) Cap PO SCH ×2 (14:10→20:55)
[2017-10-17] MEDS: Enoxaparin 40 MG/0.4 ML Syringe SUBCUT SCH (14:10)
[2017-10-17] MEDS: Levofloxacin/Dextrose 5%-Water 500 MG in Premix Bag 1 BAG IV SCH (14:10)
[2017-10-17] MEDS: PARoxetine 20 MG Tab PO SCH (20:55)
[2017-10-17] MEDS: Melatonin 3 MG Tab PO SCH (20:55)
[2017-10-17] MEDS: Montelukast 10 MG Tab PO SCH (20:56)
[2017-10-18] MEDS: methylPREDNISolone Sodium Succinate 40 MG/1 ML SDV IVPUSH SCH ×2 (03:29→10:34)
[2017-10-18] MEDS: Albuterol/Ipratropium 3.0-0.5 MG/3 ML Neb Soln NEB SCH ×4 (07:05→21:04)
[2017-10-18] MEDS: Mometasone Furoate Powder 220 MCG/Puff 14 Dose Inhaler INH SCH (07:07)
[2017-10-18] MEDS: Gabapentin 300 MG Cap PO SCH ×3 (08:18→21:06)
[2017-10-18] MEDS: Lactobacillus Rhamnosus GG (Probiotic) Cap PO SCH ×2 (08:18→21:04)
[2017-10-18] MEDS: Levothyroxine 112 MCG Tab PO SCH (08:18)
[2017-10-18] MEDS: Sulfamethoxazole/Trimethoprim 800-160 MG Tab PO SCH (08:19)
[2017-10-18] MEDS ORDERED: Furosemide 40 MG Tab PO SCH (09:00)
[2017-10-18] MEDS: Metoprolol Succinate 25 MG Tab.ER PO SCH ×2 (09:39→21:05)
--- NOTE | 2017-10-18 12:35 | PCM.PN ---
- General Info Date of Service: 10/18/17 Subjective Update: Mr. Mccall has been stable over the past 24 hours except for lower blood pressures this morning. Respiratory symptoms have essentially resolved, we had been treating with some furosemide to try and obtain further diuresis. He did receive the furosemide this morning but his metoprolol is been held and blood pressure systolic has been in the upper 80s. He is asymptomatic with this and denies symptoms of lightheadedness shortness of breath or chest pain. Functional Status: Reports: Tolerating Diet, Urinating - Review of Systems General: Reports: Weakness. Denies: Fever, Chills Pulmonary: Reports: No Symptoms Cardiovascular: Reports: No Symptoms Gastrointestinal: Reports: No Symptoms - Patient Data Vitals - Most Recent: Last Vital Signs Temp 96.8 F 10/18/17 08:02 Pulse 80 10/18/17 11:00 Resp 16 10/18/17 02:00 BP 88/62 L 10/18/17 09:39 Pulse Ox 95 10/18/17 11:00 Weight - Most Recent: 183 lb 9.6 oz I&O - Last 24 Hours: Intake & Output 10/17/17 10/18/17 10/18/17 22:59 06:59 14:59 Intake Total 240 Output Total 275 250 Balance -35 -250 Lab Results Last 24 Hours: Laboratory Results - last 24 hr 10/18/17 Range/Units 05:45 Sodium 135 L (140-148) mmol/L Potassium 4.5 (3.6-5.2) mmol/L Chloride 99 L (100-108) mmol/L Carbon Dioxide 29 (21-32) mmol/L Anion Gap 11.5 (5.0-14.0) mmol/L BUN 37 H (7-18) mg/dL Creatinine 1.5 H (0.8-1.3) mg/dL Est Cr Clr Drug Dosing 32.18 mL/min Estimated GFR (MDRD) 44 L (>60) Glucose 146 H (74-106) mg/dL Calcium 8.8 (8.5-10.1) mg/dL Med Orders - Current: Current Medications Acetaminophen (Tylenol) 650 mg PO Q4H PRN PRN Reason: Pain (Mild 1-3)/fever Albuterol (Proventil Neb Soln) 2.5 mg NEB Q4H PRN PRN Reason: Shortness Of Breath/wheezing Albuterol/Ipratropium (Duoneb 3.0-0.5 Mg/3 Ml) 3 ml NEB QIDRT [facility] Last Admin: 10/18/17 10:56 Dose: 3 ml Enoxaparin Sodium (Lovenox) 40 mg SUBCUT Q24H [facility] Last Admin: 10/17/17 14:10 Dose: 40 mg Gabapentin (Neurontin) 300 mg PO TID [facility] Last Admin: 10/18/17 08:18 Dose: 300 mg Levofloxacin/Dextrose 250 mg/ (Premix) 50 mls @ 50 mls/hr IV Q24H [facility] Lactobacillus Rhamnosus (Culturelle) 1 cap PO BID [facility] Last Admin: 10/18/17 08:18 Dose: 1 cap Levothyroxine Sodium (Levothyroxine) 112 mcg PO ACBRK [facility] Last Admin: 10/18/17 08:18 Dose: 112 mcg Magnesium Hydroxide (Milk Of Magnesia) 30 ml PO Q12H PRN PRN Reason: Constipation Melatonin (Melatonin) 9 mg PO BEDTIME [facility] Last Admin: 10/17/17 20:55 Dose: 9 mg Methylprednisolone Sodium Succinate (Solu-Medrol) 40 mg IVPUSH Q6H [facility] Last Admin: 10/18/17 10:34 Dose: 40 mg Metoprolol Succinate (Toprol Xl) 12.5 mg PO BID [facility] Mometasone Furoate (Asmanex 220 Mcg) 2 puff INH DAILY@0730 [facility] Last Admin: 10/18/17 07:07 Dose: 2 puff Montelukast Sodium (Singulair) 10 mg PO BEDTIME [facility] Last Admin: 10/17/17 20:56 Dose: 10 mg Ondansetron HCl (Zofran) 4 mg IV Q4H PRN PRN Reason: Nausea/Vomiting Oxycodone HCl (Oxycodone) 5 mg PO Q4H PRN PRN Reason: Pain (moderate 4-6) Paroxetine HCl (Paxil) 20 mg PO BEDTIME [facility] Last Admin: 10/17/17 20:55 Dose: 20 mg Polyethylene Glycol (Miralax) 17 gm PO DAILY PRN PRN Reason: Constipation Ranitidine HCl (Zantac) 150 mg PO BID [facility] Last Admin: 10/18/17 08:19 Dose: 150 mg Senna/Docusate Sodium (Senna Plus) 1 tab PO BID PRN PRN Reason: Constipation Sodium Chloride (Saline Flush) 10 ml FLUSH ASDIRECTED PRN PRN Reason: Keep Vein Open Terazosin HCl (Hytrin) 5 mg PO BEDTIME [facility] Trimethoprim/Sulfamethoxazole (Septra Ds) 1 tab PO DAILY [facility] Last Admin: 10/18/17 08:19 Dose: 1 tab Discontinued Medications Albuterol (Proventil Neb Soln) 2.5 mg NEB ONETIME ONE Stop: 10/16/17 08:59 Last Admin: 10/16/17 09:44 Dose: 2.5 mg Albuterol/Ipratropium (Duoneb 3.0-0.5 Mg/3 Ml) 3 ml NEB ONETIME ONE Stop: 10/16/17 08:26 Last Admin: 10/16/17 08:37 Dose: 3 ml Furosemide (Lasix) 40 mg IVPUSH ONETIME ONE Stop: 10/16/17 08:19 Last Admin: 10/16/17 15:28 Dose: Not Given Furosemide (Lasix) 40 mg PO ONETIME ONE Stop: 10/16/17 08:25 Last Admin: 10/16/17 08:36 Dose: 40 mg Furosemide (Lasix) 40 mg PO DAILY [facility] Last Admin: 10/18/17 08:18 Dose: 40 mg Furosemide 40 mg/ Furosemide (20 mg) 60 mg IV ONETIME ONE Stop: 10/17/17 12:16 Last Admin: 10/17/17 14:10 Dose: 60 mg Levofloxacin/Dextrose 500 mg/ (Premix) 100 mls @ 100 mls/hr IV Q24H [facility] Last Admin: 10/17/17 14:10 Dose: 100 mls/hr Methylprednisolone Sodium Succinate (Solu-Medrol) 40 mg IVPUSH ONETIME ONE Stop: 10/16/17 08:57 Last Admin: 10/16/17 09:43 Dose: 40 mg Metoprolol Succinate (Toprol Xl) 25 mg PO BID [facility] Last Admin: 10/18/17 09:39 Dose: Not Given Metoprolol Tartrate (Lopressor) 50 mg PO BID [facility] Last Admin: 10/16/17 15:29 Dose: Not Given Montelukast Sodium (Singulair) 10 mg PO DAILY [facility] Last Admin: 10/16/17 15:04 Dose: 10 mg Sodium Chloride (Saline Flush) 10 ml FLUSH ASDIRECTED PRN PRN Reason: Keep Vein Open Sodium Chloride (Saline Flush) 10 ml FLUSH ASDIRECTED PRN PRN Reason: Keep Vein Open Last Admin: 10/16/17 09:43 Dose: 10 ml Terazosin HCl (Hytrin) 5 mg PO DAILY [facility] Last Admin: 10/17/17 08:18 Dose: 5 mg - Exam General: Alert, Cooperative, No Acute Distress Lungs: Clear to Auscultation, Normal Respiratory Effort Cardiovascular: Regular Rate, Regular Rhythm, Murmurs GI/Abdominal Exam: Soft, Non-Tender, No Organomegaly, No Distention Extremities: Non-Tender, No Pedal Edema Skin: Warm, Dry, Intact - Problem List Review Problem List Initiated/Reviewed/Updated: Yes - My Orders Last 24 Hours: My Active Orders 10/17/17 12:15 Lactobacillus Rhamnosus GG [Culturelle] 1 cap PO BID 10/17/17 21:00 Melatonin 9 mg PO BEDTIME Montelukast [Singulair] 10 mg PO BEDTIME 10/18/17 14:00 Levofloxacin/Dextrose 5%-Water [Levaquin in D5W 250 MG/50 ML] 250 mg Premix Bag 1 bag IV Q24H 10/18/17 21:00 Metoprolol Succinate [Toprol XL] 12.5 mg PO BID Terazosin [Hytrin] 5 mg PO BEDTIME - Plan Plan:: ASSESSMENT AND PLAN ASTHMA EXACERBATION SECONDARY TO BRONCHITIS-improved since admission with less shortness of breath and cough. Oxygen saturations better with lower level of supplemental oxygen, has been afebrile. 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 -Management as above CHRONIC KIDNEY DISEASE STAGE III-renal function has been stable since admission -Monitor urine output and renal function closely during hospital stay MAINTENANCE ISSUES -DVT prophylaxis; Lovenox 40 mg subcutaneous daily -GI prophylaxis; not indicated -Madden catheter; not indicated -Nutrition; 2 g sodium diet -Nicotine dependence; not required CODE STATUS-FULL CODE ADMISSION STATUS-patient will be admitted to inpatient status, expect at least a 2 night hospital stay for evaluation and management of problems as outlined above. At the time of this admission I do not reasonably expected evaluation and management of this problem will require more than a 96 hour hospital stay. DISPOSITION-anticipate discharge to home after the hospital stay. PRIMARY CARE PROVIDER-Dr. Coleman
[2017-10-18] MEDS: Enoxaparin 40 MG/0.4 ML Syringe SUBCUT SCH (13:12)
[2017-10-18] MEDS ORDERED: Levofloxacin/Dextrose 5%-Water 250 MG in Premix Bag 1 BAG IV SCH (14:00)
[2017-10-18] MEDS ORDERED: Terazosin 5 MG Cap PO SCH (21:00)
[2017-10-18] MEDS: Melatonin 3 MG Tab PO SCH (21:04)
[2017-10-18] MEDS: PARoxetine 20 MG Tab PO SCH (21:05)
[2017-10-18] MEDS: Montelukast 10 MG Tab PO SCH (21:06)
[2017-10-19] MEDS: Albuterol/Ipratropium 3.0-0.5 MG/3 ML Neb Soln NEB SCH ×2 (07:25→10:50)
[2017-10-19] MEDS: Mometasone Furoate Powder 220 MCG/Puff 14 Dose Inhaler INH SCH (07:26)
[2017-10-19] MEDS: Levothyroxine 112 MCG Tab PO SCH (08:31)
[2017-10-19] MEDS: Gabapentin 300 MG Cap PO SCH ×2 (08:39→14:36)
[2017-10-19] MEDS: Lactobacillus Rhamnosus GG (Probiotic) Cap PO SCH (08:39)
[2017-10-19] MEDS: Sulfamethoxazole/Trimethoprim 800-160 MG Tab PO SCH (08:40)
[2017-10-19 11:12] VITALS: BP 89/47
--- NOTE | 2017-10-19 13:39 | PCM.DCSUM1 ---
Discharge Summary - Hospital Course Brief History: Mr. Huynh is an 87-year-old gentleman who was admitted through the emergency department with asthma exacerbation, shortness of breath, hypoxia, secondary to a viral upper respiratory tract infection. - Discharge Data Discharge Date: 10/19/17 Discharge Disposition: Home, Self-Care 01 Condition: Fair - Discharge Diagnosis/Problem(s) (1) Acute viral bronchiolitis SNOMED Code(s): 943459850 ICD Code: J21.8 - ACUTE BRONCHIOLITIS DUE TO OTHER SPECIFIED ORGANISMS; B97.89 - OTH VIRAL AGENTS THE CAUSE OF DISEASES CLASSD [id number] Status: Acute Current Visit: Yes (2) Hypoxia SNOMED Code(s): 517072668 ICD Code: R09.02 - HYPOXEMIA Status: Acute Current Visit: Yes (3) Exacerbation of asthma SNOMED Code(s): 630038809 ICD Code: J45.901 - UNSPECIFIED ASTHMA WITH (ACUTE) EXACERBATION Status: Acute Current Visit: Yes Qualifiers: Asthma severity: moderate Asthma persistence: unspecified Qualified Code( s): J45.901 - Unspecified asthma with (acute) exacerbation (4) CHF (congestive heart failure) SNOMED Code(s): 80631524 ICD Code: I50.9 - HEART FAILURE, UNSPECIFIED Status: Acute Current Visit : Yes Qualifiers: Heart failure type: unspecified Heart failure chronicity: acute on chronic Qualified Code(s): I50.9 - Heart failure, unspecified (5) PAF (paroxysmal atrial fibrillation) SNOMED Code(s): 565470849 ICD Code: I48.0 - PAROXYSMAL ATRIAL FIBRILLATION Status: Chronic Current Visit: No - Patient Summary/Data Hospital Course: Mr. Callaway is an 87-year-old gentleman who was admitted through the emergency department for further evaluation and management of hypoxia, secondary to COPD exacerbation and underlying bronchitis. He has a known history of multiple medical problems including known coronary artery disease, congestive heart failure, as well as significant aortic valvular disease. He had been previously scheduled for aortic valve replacement, surgery was canceled when he developed a respiratory tract infection. Since then he has decided he wants to hold off on the valvular surgery as he had been doing fairly well for a few months. Now over the past 2 days his developed increased shortness of breath with a cough productive of colored sputum. 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 Unfortunately this is not helped significantly and he presented to the emergency department because of ongoing severe shortness of breath. Initially was found to be hypoxic, this has improved in the emergency department with management including nebulizer therapy and Solu-Medrol. He has had temperature elevation over the past few days. White blood cell count is within normal range and chest x-ray shows evidence of pulmonary edema. He denies any current symptoms of chest pain or pressure. Influenza A and B antigens were obtained and found to be negative. He was given IV furosemide in the emergency department, on admission was started on IV levofloxacin and Solu-Medrol. By the following morning respiratory status improved significantly with less cough and resolution of expiratory wheezes. He was given additional dose of IV Lasix and the following day transitioned to oral furosemide. Cardiology had recommended that he be taken off of the sotalol and started on daily dose of metoprolol. Metoprolol was started but will be held at the time of discharge because of hypotension with systolic pressures into the 80s especially in the mornings. He will continue oral furosemide as he had been prior to admission. Antibiotics and Solu -Medrol will be discontinued as asthma exacerbation appears to have resolved and it's very likely that his respiratory tract infection was viral in nature. Activity will be as tolerated and he will resume a 2 g sodium cardiac diet. Follow-up appointment is artery been scheduled with Dr. Coleman and a follow-up appointment will be scheduled with cardiology within one month. Home care will be arranged for after discharge including home physical therapy and occupational therapy. - Patient Instructions Diet: Heart Healthy Diet, Low Sodium Activity: As Tolerated Other/Special Instructions: Follow-up appointment with Dr. Coleman this next week as scheduled. Please schedule follow-up appointment with cardiology within the next month. Home care after discharge including physical therapy and occupational therapy - Discharge Plan Home Medications: Home Meds Gabapentin [Neurontin] 300 mg PO TID 03/14/14 [History] Levothyroxine 112 mcg PO ACBRK 03/14/14 [History] PARoxetine [Paxil] 20 mg PO BEDTIME 03/14/14 [History] Ranitidine [Zantac] 150 mg PO BID 03/14/14 [History] Albuterol Sulfate [Albuterol Sulfate HFA] 2 puff INH Q4H PRN 06/01/14 [History] Mometasone Furoate [Asmanex 220 MCG] 2 puff INH DAILY 06/01/14 [History] [place]-3/DHA/Epa/Fish Oil [Fish Oil Dr 500 mg Softgel] 1,000 mg PO DAILY [History] Sulfamethoxazole/Trimethoprim [Bactrim Ds Tablet] 1 tab PO DAILY 06/01/14 [ History] Terazosin [Hytrin] 5 mg PO DAILY 06/01/14 [History] Vitamin B Complex [B Complex] 1 tab PO DAILY 06/01/14 [History] Montelukast [Singulair] 10 mg PO DAILY 10/16/17 [History] Referrals: Sander Coleman MD [Primary Care Provider] - 10/21/17 1:40 pm - Discharge Summary/Plan Comment DC Time >30 min.: No - Patient Data Vitals - Most Recent: Last Vital Signs Temp 96.5 F 10/19/17 11:06 Pulse 58 L 10/19/17 11:06 Resp 20 10/19/17 11:06 BP 89/47 L 10/19/17 11:06 Pulse Ox 99 10/19/17 13:02 Weight - Most Recent: 183 lb I&O - Last 24 hours: Intake & Output 10/18/17 10/19/17 10/19/17 22:59 06:59 14:59 Intake Total 480 320 Output Total 1025 200 400 Balance -545 -200 -80 Med Orders - Current: Current Medications Acetaminophen (Tylenol) 650 mg PO Q4H PRN PRN Reason: Pain (Mild 1-3)/fever Albuterol (Proventil Neb Soln) 2.5 mg NEB Q4H PRN PRN Reason: Shortness Of Breath/wheezing Albuterol/Ipratropium (Duoneb 3.0-0.5 Mg/3 Ml) 3 ml NEB QIDRT [facility] Last Admin: 10/19/17 10:50 Dose: 3 ml Enoxaparin Sodium (Lovenox) 40 mg SUBCUT Q24H [facility] Last Admin: 10/18/17 13:12 Dose: 40 mg Gabapentin (Neurontin) 300 mg PO TID [facility] Last Admin: 10/19/17 08:39 Dose: 300 mg Lactobacillus Rhamnosus (Culturelle) 1 cap PO BID [facility] Last Admin: 10/19/17 08:39 Dose: 1 cap Levothyroxine Sodium (Levothyroxine) 112 mcg PO ACBRK [facility] Last Admin: 10/19/17 08:31 Dose: 112 mcg Magnesium Hydroxide (Milk Of Magnesia) 30 ml PO Q12H PRN PRN Reason: Constipation Melatonin (Melatonin) 9 mg PO BEDTIME [facility] Last Admin: 10/18/17 21:04 Dose: 9 mg Metoprolol Succinate (Toprol Xl) 12.5 mg PO BID [facility] Last Admin: 10/18/17 21:05 Dose: 12.5 mg Mometasone Furoate (Asmanex 220 Mcg) 2 puff INH DAILY@0730 [facility] Last Admin: 10/19/17 07:26 Dose: 2 puff Montelukast Sodium (Singulair) 10 mg PO BEDTIME [facility] Last Admin: 10/18/17 21:06 Dose: 10 mg Ondansetron HCl (Zofran) 4 mg IV Q4H PRN PRN Reason: Nausea/Vomiting Oxycodone HCl (Oxycodone) 5 mg PO Q4H PRN PRN Reason: Pain (moderate 4-6) Paroxetine HCl (Paxil) 20 mg PO BEDTIME [facility] Last Admin: 10/18/17 21:05 Dose: 20 mg Polyethylene Glycol (Miralax) 17 gm PO DAILY PRN PRN Reason: Constipation Ranitidine HCl (Zantac) 150 mg PO BID [facility] Last Admin: 10/19/17 08:39 Dose: 150 mg Senna/Docusate Sodium (Senna Plus) 1 tab PO BID PRN PRN Reason: Constipation Sodium Chloride (Saline Flush) 10 ml FLUSH ASDIRECTED PRN PRN Reason: Keep Vein Open Terazosin HCl (Hytrin) 5 mg PO BEDTIME [facility] Last Admin: 10/18/17 21:05 Dose: 5 mg Trimethoprim/Sulfamethoxazole (Septra Ds) 1 tab PO DAILY [facility] Last Admin: 10/19/17 08:40 Dose: 1 tab Discontinued Medications Albuterol (Proventil Neb Soln) 2.5 mg NEB ONETIME ONE Stop: 10/16/17 08:59 Last Admin: 10/16/17 09:44 Dose: 2.5 mg Albuterol/Ipratropium (Duoneb 3.0-0.5 Mg/3 Ml) 3 ml NEB ONETIME ONE Stop: 10/16/17 08:26 Last Admin: 10/16/17 08:37 Dose: 3 ml Furosemide (Lasix) 40 mg IVPUSH ONETIME ONE Stop: 10/16/17 08:19 Last Admin: 10/16/17 15:28 Dose: Not Given Furosemide (Lasix) 40 mg PO ONETIME ONE Stop: 10/16/17 08:25 Last Admin: 10/16/17 08:36 Dose: 40 mg Furosemide (Lasix) 40 mg PO DAILY [facility] Last Admin: 10/18/17 08:18 Dose: 40 mg Furosemide 40 mg/ Furosemide (20 mg) 60 mg IV ONETIME ONE Stop: 10/17/17 12:16 Last Admin: 10/17/17 14:10 Dose: 60 mg Levofloxacin/Dextrose 500 mg/ (Premix) 100 mls @ 100 mls/hr IV Q24H [facility] Last Admin: 10/17/17 14:10 Dose: 100 mls/hr Levofloxacin/Dextrose 250 mg/ (Premix) 50 mls @ 50 mls/hr IV Q24H [facility] Methylprednisolone Sodium Succinate (Solu-Medrol) 40 mg IVPUSH ONETIME ONE Stop: 10/16/17 08:57 Last Admin: 10/16/17 09:43 Dose: 40 mg Methylprednisolone Sodium Succinate (Solu-Medrol) 40 mg IVPUSH Q6H [facility] Last Admin: 10/18/17 10:34 Dose: 40 mg Metoprolol Succinate (Toprol Xl) 25 mg PO BID [facility] Last Admin: 10/18/17 09:39 Dose: Not Given Metoprolol Tartrate (Lopressor) 50 mg PO BID [facility] Last Admin: 10/16/17 15:29 Dose: Not Given Montelukast Sodium (Singulair) 10 mg PO DAILY [facility] Last Admin: 10/16/17 15:04 Dose: 10 mg Sodium Chloride (Saline Flush) 10 ml FLUSH ASDIRECTED PRN PRN Reason: Keep Vein Open Sodium Chloride (Saline Flush) 10 ml FLUSH ASDIRECTED PRN PRN Reason: Keep Vein Open Last Admin: 10/16/17 09:43 Dose: 10 ml Terazosin HCl (Hytrin) 5 mg PO DAILY [facility] Last Admin: 10/17/17 08:18 Dose: 5 mg - Exam Quality Assessment: Reports: DVT Prophylaxis General: Reports: Alert, Oriented, Cooperative, No Acute Distress Lungs: Reports: Clear to Auscultation, Normal Respiratory Effort, Decreased Breath Sounds. Denies: Rales, Rhonchi, Wheezing Cardiovascular: Reports: Regular Rate, Regular Rhythm, No Murmurs GI/Abdominal Exam: Soft, Non-Tender, No Organomegaly, No Distention
[2017-10-19] MEDS: Metoprolol Succinate 25 MG Tab.ER PO SCH (14:26)
[2017-10-19] MEDS: Enoxaparin 40 MG/0.4 ML Syringe SUBCUT SCH (14:36)
== END 2017-10-19 15:00 | disposition home or self-care (01) | DRG 190 ==
LOC: JP.ED 07:23 → JP.MS 13:00
PROVIDERS: ADMIT Hospitalist; ATTEND Hospitalist
DX: J44.0 Chronic obstructive pulmonary disease with (acute) lower respiratory infection (principal); J20.9 Acute bronchitis, unspecified; J96.21 Acute and chronic respiratory failure with hypoxia; I50.23 Acute on chronic systolic (congestive) heart failure; J20.8 Acute bronchitis due to other specified organisms; J44.1 Chronic obstructive pulmonary disease with (acute) exacerbation; E03.9 Hypothyroidism, unspecified; I25.10 Atherosclerotic heart disease of native coronary artery without angina pectoris; N18.3 Chronic kidney disease, stage 3 (moderate); I34.8 Other nonrheumatic mitral valve disorders; R06.02 Shortness of breath; R09.02 Hypoxemia; I35.8 Other nonrheumatic aortic valve disorders; I48.0 Paroxysmal atrial fibrillation; M19.90 Unspecified osteoarthritis, unspecified site; Z85.828 Personal history of other malignant neoplasm of skin; H54.7 Unspecified visual loss; H91.90 Unspecified hearing loss, unspecified ear; Z79.52 Long term (current) use of systemic steroids; Z96.649 Presence of unspecified artificial hip joint
CPT/HCPCS: 36415; 71046 ×2; 80048; 83880; 85027; 93306; 94640 ×2; 96374; 99285; A9270; J2920; J7050; J7620; 83735; 85025; 87804; 87804-59; 94762; J1650; J1940; J1956

== ENCOUNTER 2017-11-07 19:01 | Inpatient (IN) | payer MEDICARE, BC ==
[2017-11-07] MEDS ORDERED: Furosemide 40 MG/4 ML VIAL IVPUSH ONE (21:43)
[2017-11-07] MEDS ORDERED: Simethicone 80 MG Tab.Chew PO ONE (21:44)
--- NOTE | 2017-11-07 21:58 | EDM.PDOC ---
ED HPI GENERAL MEDICAL PROBLEM - General Chief Complaint: Respiratory Problem Stated Complaint: SOB Time Seen by Provider: 11/07/17 19:54 Source of Information: Reports: Patient, Family History Limitations: Reports: No Limitations - History of Present Illness INITIAL COMMENTS - FREE TEXT/NARRATIVE: This gentleman comes in for complaint of shortness of breath. Has a history of congestive heart failure. He was taking furosemide 20 mg a day but then has put on about 4 pounds in the past 2 days. His yesterday received 20 mg twice a day of furosemide and this morning he received 40 mg. He was voiding quite a bit and feeling better but this afternoon he had much more shortness of breath. He denies any pedal edema is been no chest pain or palpitations. He says other than a little shortness of breath he feels pretty good. His said his abdomen seems really distended today. He has bowel movements about every day or every other day. There's been no vomiting or diarrhea he complains of some occasional abdominal pains - Related Data Allergies Allergy/AdvReac Type Severity Reaction Status Date / Time No Known Allergies Allergy Verified 11/07/17 19:16 Home Meds: Home Meds Gabapentin [Neurontin] 300 mg PO TID 03/14/14 [History] Levothyroxine 112 mcg PO ACBRK 03/14/14 [History] PARoxetine [Paxil] 20 mg PO BEDTIME 03/14/14 [History] Ranitidine [Zantac] 150 mg PO BID 03/14/14 [History] Albuterol Sulfate [Albuterol Sulfate HFA] 2 puff INH Q4H PRN 06/01/14 [History] [place]-3/DHA/Epa/Fish Oil [Fish Oil Dr 500 mg Softgel] 1,000 mg PO DAILY [History] Sulfamethoxazole/Trimethoprim [Bactrim Ds Tablet] 1 tab PO DAILY 06/01/14 [ History] Terazosin [Hytrin] 5 mg PO DAILY 06/01/14 [History] Vitamin B Complex [B Complex] 2 tab PO DAILY 06/01/14 [History] Montelukast [Singulair] 10 mg PO DAILY 10/16/17 [History] Aspirin 325 mg PO DAILY 11/07/17 [History] Furosemide [Lasix] 40 mg PO DAILY 11/07/17 [History] Metoprolol Tartrate 12.5 mg PO BID 11/07/17 [History] Vitamin E 400 unit PO DAILY 11/07/17 [History] azaTHIOprine [Imuran] 50 mg PO DAILY 11/07/17 [History] predniSONE [Prednisone] 5 mg PO DAILY 11/07/17 [History] Past Medical History HEENT History: Reports: Hard of Hearing, Impaired Vision Cardiovascular History: Reports: Afib, Heart Failure, Other (See Below) 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 Respiratory History: Reports: Asthma Genitourinary History: Reports: Prostate Disorder Musculoskeletal History: Reports: Arthritis Endocrine/Metabolic History: Reports: Hypothyroidism Oncologic (Cancer) History: Reports: Squamous Cell Carcinoma Other Oncologic History: skin - Infectious Disease History Infectious Disease History: Reports: Chicken Pox - Past Surgical History HEENT Surgical History: Reports: Cataract Surgery GI Surgical History: Reports: Cholecystectomy Musculoskeletal Surgical History: Reports: Hip Replacement, Other (See Below) Other Musculoskeletal Surgeries/Procedures:: foot drop Social & Family History - Tobacco Use Smoking Status *Q: Unknown Ever Smoked - Caffeine Use Caffeine Use: Reports: Coffee Other Caffeine Use: 3 cups per day ED ROS GENERAL - Review of Systems Review Of Systems: See Below Constitutional: Reports: No Symptoms HEENT: Reports: No Symptoms Respiratory: Reports: Shortness of Breath Cardiovascular: Reports: Other (says he feels much better breathing of sitting up) Endocrine: Reports: No Symptoms GI/Abdominal: Reports: Other : Reports: No Symptoms (See history of present illness) Musculoskeletal: Reports: No Symptoms Skin: Reports: No Symptoms Neurological: Reports: No Symptoms ED EXAM, GENERAL - Physical Exam Exam: See Below Exam Limited By: No Limitations General Appearance: Alert, WD/WN, No Apparent Distress (He is reclining about 45 angle on the bed does not appear to be short of breath. He's wearing oxygen and O2 sat is about 95%) Eye Exam: Bilateral Eye: Normal Inspection Throat/Mouth: Normal Inspection Head: Atraumatic Neck: Normal Inspection Respiratory/Chest: Other (I hear various pops and crackles and decreased breath sounds in the right base but no definite rales.) Cardiovascular: Normal Peripheral Pulses, Regular Rate, Rhythm, No Murmur GI/Abdominal: Other (The abdomen appears to be fairly tense and distended. There is increased resonance but it is not tympanitic. There is no fluid wave the belly is nontender) Back Exam: Normal Inspection Extremities: No Pedal Edema Neurological: Alert, Oriented, CN II-XII Intact Psychiatric: Normal Affect Skin Exam: Warm, Dry Course - Vital Signs Last Recorded V/S: Last Vital Signs Temp 37.1 C 11/07/17 19:30 Pulse 92 11/07/17 19:30 Resp 30 H 11/07/17 19:30 BP 120/58 L 11/07/17 19:30 Pulse Ox 93 L 11/07/17 19:30 - Orders/Labs/Meds Orders: Active Orders 24 hr Category Date Time Status EKG Documentation Completion [RC] ASDIRECTED Care 11/07/17 20:11 Active Abdomen Pelvis wo Cont [CT] Stat Exams 11/07/17 20:10 Taken Chest 1V Frontal [CR] Urgent Exams 11/07/17 20:09 Taken UA W/MICROSCOPIC [URIN] Urgent Lab 11/07/17 20:20 Ordered EKG 12 Lead [EK] Urgent Ther 11/07/17 20:09 Ordered Labs: Laboratory Tests 11/07/17 11/07/17 11/07/17 Range/Units 20:09 20:09 20:09 WBC 9.6 (4.5-11.0) K/uL RBC 3.74 L (4.30-5.90) M/uL Hgb 11.9 L (12.0-15.0) g/dL Hct 35.2 L (40.0-54.0) % MCV 94 (80-98) fL MCH 32 H (27-31) pg MCHC 34 (32-36) % Plt Count 192 (150-400) K/uL Neut % (Auto) 83 H (36-66) % Lymph % (Auto) 8 L (24-44) % [place] % (Auto) 8 H (2-6) % Eos % (Auto) 1 L (2-4) % Baso % (Auto) 0 (0-1) % Sodium 132 L (140-148) mmol/L Potassium 4.0 (3.6-5.2) mmol/L Chloride 95 L (100-108) mmol/L Carbon Dioxide 29 (21-32) mmol/L Anion Gap 12.0 (5.0-14.0) mmol/L BUN 20 H (7-18) mg/dL Creatinine 1.4 H (0.8-1.3) mg/dL Est Cr Clr Drug Dosing 34.69 mL/min Estimated GFR (MDRD) 48 L (>60) Glucose 171 H (74-106) mg/dL Calcium 8.1 L (8.5-10.1) mg/dL Total Bilirubin 0.6 (0.2-1.0) mg/dL AST 20 (15-37) U/L ALT 26 (12-78) U/L Alkaline Phosphatase 60 (46-116) U/L Troponin I 0.036 (0.000-0.056) ng/mL NT-Pro-B Natriuret Pep 2014 H (5-450) pg/mL Total Protein 6.4 (6.4-8.2) g/dL Albumin 3.1 L (3.4-5.0) g/dL Globulin 3.3 (2.3-3.5) g/dL Albumin/Globulin Ratio 0.9 L (1.2-2.2) Urine Color Urine Appearance Urine pH (4.5-8.0) Ur Specific [place] (1.008-1.030) Urine Protein (NEGATIVE) mg/dL Urine Glucose (UA) (NEGATIVE) mg/dL Urine Ketones (NEGATIVE) mg/dL Urine Occult Blood (NEGATIVE) Urine Nitrite (NEGAITVE) Urine Bilirubin (NEGATIVE) Urine Urobilinogen (NORMAL) mg/dL Ur Leukocyte Esterase (NEGATIVE) Urine RBC (0-5) Urine WBC (0-5) Ur Epithelial Cells Amorphous Sediment Urine Bacteria Urine Mucus //18 Range/Units 20:20 WBC (4.5-11.0) K/uL RBC (4.30-5.90) M/uL Hgb (12.0-15.0) g/dL Hct (40.0-54.0) % MCV (80-98) fL MCH (27-31) pg MCHC (32-36) % Plt Count (150-400) K/uL Neut % (Auto) (36-66) % Lymph % (Auto) (24-44) % [place] % (Auto) (2-6) % Eos % (Auto) (2-4) % Baso % (Auto) (0-1) % Sodium (140-148) mmol/L Potassium (3.6-5.2) mmol/L Chloride (100-108) mmol/L Carbon Dioxide (21-32) mmol/L Anion Gap (5.0-14.0) mmol/L BUN (7-18) mg/dL Creatinine (0.8-1.3) mg/dL Est Cr Clr Drug Dosing mL/min Estimated GFR (MDRD) (>60) Glucose (74-106) mg/dL Calcium (8.5-10.1) mg/dL Total Bilirubin (0.2-1.0) mg/dL AST (15-37) U/L ALT (12-78) U/L Alkaline Phosphatase (46-116) U/L Troponin I (0.000-0.056) ng/mL NT-Pro-B Natriuret Pep (5-450) pg/mL Total Protein (6.4-8.2) g/dL Albumin (3.4-5.0) g/dL Globulin (2.3-3.5) g/dL Albumin/Globulin Ratio (1.2-2.2) Urine Color Yellow Urine Appearance Clear Urine pH 5.0 (4.5-8.0) Ur Specific [place] 1.020 (1.008-1.030) Urine Protein Negative (NEGATIVE) mg/dL Urine Glucose (UA) 50 H (NEGATIVE) mg/dL Urine Ketones Negative (NEGATIVE) mg/dL Urine Occult Blood Negative (NEGATIVE) Urine Nitrite Negative (NEGAITVE) Urine Bilirubin Negative (NEGATIVE) Urine Urobilinogen 1 (NORMAL) mg/dL Ur Leukocyte Esterase Small (NEGATIVE) Urine RBC Not seen (0-5) Urine WBC 0-5 (0-5) Ur Epithelial Cells Rare Amorphous Sediment Not seen Urine Bacteria Few Urine Mucus Few Meds: Medications Discontinued Medications Generic Name Dose Route Start Last Admin Trade Name Freq PRN Reason Stop Dose Admin Furosemide 60 mg 11/07/17 21:43 Lasix IVPUSH 11/07/17 21:44 ONETIME ONE Simethicone 160 mg 11/07/17 21:44 Simethicone PO 11/07/17 21:45 ONETIME ONE - Radiology Interpretation Free Text/Narrative:: Chest x-ray showed suggestions of pulmonary edema. CT of the abdomen did show a lot of gaseous distention but there is also bilateral pleural effusions and some interstitial prominence and a pericardial effusion described as greater than small. - Re-Assessments/Exams Free Text/Narrative Re-Assessment/Exam: 11/07/17 21:58 This patient appears to be fairly stable right now however considering his age and overall health I think it would be unwise to send him home until he is diuresed so we'll put him in overnight. I spoke with Salud Ortega she is discuss this with Dr. Sauceda and he'll be admitted and he'll get the first dose of furosemide here in the ER Departure - Departure Time of Disposition: 21:59 Disposition: Admitted As Inpatient 65 Condition: Fair Clinical Impression: Pleural effusion, Pericardial effusion CHF (congestive heart failure) Qualifiers: Heart failure type: unspecified Heart failure chronicity: acute on chronic Qualified Code(s): I50.9 - Heart failure, unspecified - Discharge Information Referrals: Sander Coleman MD [Primary Care Provider] - - My Orders Last 24 Hours: My Active Orders 11/07/17 20:09 Chest 1V Frontal [CR] Urgent EKG 12 Lead [EK] Urgent 11/07/17 20:10 Abdomen Pelvis wo Cont [CT] Stat 11/07/17 20:11 EKG Documentation Completion [RC] ASDIRECTED 11/07/17 20:20 UA W/MICROSCOPIC [URIN] Urgent - Assessment/Plan Last 24 Hours: My Active Orders 11/07/17 20:09 Chest 1V Frontal [CR] Urgent EKG 12 Lead [EK] Urgent 11/07/17 20:10 Abdomen Pelvis wo Cont [CT] Stat 11/07/17 20:11 EKG Documentation Completion [RC] ASDIRECTED 11/07/17 20:20 UA W/MICROSCOPIC [URIN] Urgent
--- NOTE | 2017-11-07 22:34 | PCM.HP ---
H&P History of Present Illness - General Date of Service: 11/07/17 Admit Problem/Dx: Admission Diagnosis/Problem Admission Diagnosis/Problem CHF, Congestive heart failure Source of Information: Patient, Family ( and Daughter) History Limitations: Reports: No Limitations - History of Present Illness Initial Comments - Free Text/Narative: This gentleman comes in for complaint of shortness of breath. Has a history of congestive heart failure. He was taking furosemide 20 mg a day but then has put on about 4 pounds in the past 2 days. His yesterday received 20 mg twice a day of furosemide and this morning he received 40 mg. He was voiding quite a bit and feeling better but this afternoon he had much more shortness of breath. He denies any pedal edema is been no chest pain or palpitations. He says other than a little shortness of breath he feels pretty good. His said his abdomen seems really distended today. He has bowel movements about every day or every other day. There's been no vomiting or diarrhea he complains of some occasional abdominal pains. Chest x-ray showed suggestions of pulmonary edema. CT of the abdomen did show a lot of gaseous distention but there is also bilateral pleural effusions and some interstitial prominence and a pericardial effusion described as greater than small. This patient appears to be fairly stable right now however considering his age and overall health I think it would be unwise to send him home until he is diuresed so we'll put him in overnight. I spoke with Salud Garcia she discussed this with Dr. Sauceda and he'll be admitted and he'll get the first dose of furosemide here in the ER. Onset of Symptoms: Reports: Gradual Duration of Symptoms: Reports: Day(s): (two) Location: Reports: Generalized Quality: Reports: Same as Previous Episode Improves with: Reports: Rest Worsens with: Reports: Movement Context: Reports: Other (shortness of breath x 2 days) Associated Symptoms: Reports: Shortness of Breath - Related Data Allergies/Adverse Reactions: Allergies Allergy/AdvReac Type Severity Reaction Status Date / Time No Known Allergies Allergy Verified 11/07/17 19:16 Home Medications: Home Meds Gabapentin [Neurontin] 300 mg PO TID 03/14/14 [History] Levothyroxine 112 mcg PO ACBRK 03/14/14 [History] PARoxetine [Paxil] 20 mg PO BEDTIME 03/14/14 [History] Ranitidine [Zantac] 150 mg PO BID 03/14/14 [History] Albuterol Sulfate [Albuterol Sulfate HFA] 2 puff INH Q4H PRN 06/01/14 [History] [place]-3/DHA/Epa/Fish Oil [Fish Oil Dr 500 mg Softgel] 1,000 mg PO DAILY [History] Sulfamethoxazole/Trimethoprim [Bactrim Ds Tablet] 1 tab PO DAILY 06/01/14 [ History] Terazosin [Hytrin] 5 mg PO DAILY 06/01/14 [History] Vitamin B Complex [B Complex] 2 tab PO DAILY 06/01/14 [History] Montelukast [Singulair] 10 mg PO DAILY 10/16/17 [History] Aspirin 325 mg PO DAILY 11/07/17 [History] Furosemide [Lasix] 40 mg PO DAILY 11/07/17 [History] Metoprolol Tartrate 12.5 mg PO BID 11/07/17 [History] Vitamin E 400 unit PO DAILY 11/07/17 [History] azaTHIOprine [Imuran] 50 mg PO DAILY 11/07/17 [History] predniSONE [Prednisone] 5 mg PO DAILY 11/07/17 [History] Past Medical History HEENT History: Reports: Hard of Hearing, Impaired Vision Cardiovascular History: Reports: Afib, Heart Failure, Other (See Below) 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 Respiratory History: Reports: Asthma Genitourinary History: Reports: Prostate Disorder Musculoskeletal History: Reports: Arthritis Endocrine/Metabolic History: Reports: Hypothyroidism Oncologic (Cancer) History: Reports: Squamous Cell Carcinoma Other Oncologic History: skin - Infectious Disease History Infectious Disease History: Reports: Chicken Pox - Past Surgical History HEENT Surgical History: Reports: Cataract Surgery GI Surgical History: Reports: Cholecystectomy Musculoskeletal Surgical History: Reports: Hip Replacement, Other (See Below) Other Musculoskeletal Surgeries/Procedures:: foot drop Social & Family History - Tobacco Use Smoking Status *Q: Unknown Ever Smoked - Caffeine Use Caffeine Use: Reports: Coffee Other Caffeine Use: 3 cups per day H&P Review of Systems - Review of Systems: Review Of Systems: See Below General: Reports: Fatigue HEENT: Reports: Glasses Pulmonary: Reports: Shortness of Breath, Cough Cardiovascular: Reports: No Symptoms Gastrointestinal: Reports: Constipation (last BM 11/05/2017), Distension Genitourinary: Reports: No Symptoms Musculoskeletal: Reports: No Symptoms Skin: Reports: No Symptoms Psychiatric: Reports: No Symptoms Neurological: Reports: Pre-Existing Deficit (Parkinson), Tremors Hematologic/Lymphatic: Reports: No Symptoms Immunologic: Reports: No Symptoms Exam - Exam Exam: See Below - Vital Signs Vital Signs: Last Vital Signs Temp 37.1 C 11/07/17 19:30 Pulse 79 11/07/17 22:15 Resp 22 H 11/07/17 22:15 BP 128/79 11/07/17 22:15 Pulse Ox 91 L 11/07/17 22:15 Weight: 83.915 kg - Exam Quality Assessment: Supplemental Oxygen, DVT Prophylaxis General: Alert, Oriented, Cooperative HEENT: PERRLA, EACs Clear, EOMI, Hearing Intact, Mucosa Moist & [place], Nares Patent, Normal Nasal Septum, Pupils Equal, Pupils Reactive, TMs Clear, Glasses Neck: Supple, Trachea Midline Lungs: Normal Respiratory Effort, Decreased Breath Sounds, Crackles (bilateral at bases) Cardiovascular: Irregular Rhythm GI/Abdominal Exam: Normal Bowel Sounds, Non-Tender, Distended (non-tender) (Male) Exam: Deferred Rectal (Males) Exam: Deferred Back Exam: Normal Inspection, Full Range of Motion Extremities: Normal Range of Motion, Non-Tender, No Pedal Edema, Normal Capillary Refill, Other (left lower leg ) Peripheral Pulses: 2+: Radial (L), Radial (R) Skin: Warm, Dry, Intact Neurological: Normal Speech, Other (bilateral tremors of upper extremities, left lower leg with foot drop in orthodics.) Neuro Extensive - Mental Status: Alert, Oriented x3, Normal Mood/Affect, Normal Cognition, Memory Intact Neuro Extensive - Motor, Sensory, Reflexes: Motor/Sensory Deficits Psychiatric: Alert, Normal Affect, Normal Mood - Patient Data Lab Results Last 24 hrs: Laboratory Results - last 24 hr 11/07/17 11/07/17 11/07/17 Range/Units 20:09 20:09 20:09 WBC 9.6 (4.5-11.0) K/uL RBC 3.74 L (4.30-5.90) M/uL Hgb 11.9 L (12.0-15.0) g/dL Hct 35.2 L (40.0-54.0) % MCV 94 (80-98) fL MCH 32 H (27-31) pg MCHC 34 (32-36) % Plt Count 192 (150-400) K/uL Neut % (Auto) 83 H (36-66) % Lymph % (Auto) 8 L (24-44) % [place] % (Auto) 8 H (2-6) % Eos % (Auto) 1 L (2-4) % Baso % (Auto) 0 (0-1) % Sodium 132 L (140-148) mmol/L Potassium 4.0 (3.6-5.2) mmol/L Chloride 95 L (100-108) mmol/L Carbon Dioxide 29 (21-32) mmol/L Anion Gap 12.0 (5.0-14.0) mmol/L BUN 20 H (7-18) mg/dL Creatinine 1.4 H (0.8-1.3) mg/dL Est Cr Clr Drug Dosing 34.69 mL/min Estimated GFR (MDRD) 48 L (>60) Glucose 171 H (74-106) mg/dL Calcium 8.1 L (8.5-10.1) mg/dL Total Bilirubin 0.6 (0.2-1.0) mg/dL AST 20 (15-37) U/L ALT 26 (12-78) U/L Alkaline Phosphatase 60 (46-116) U/L Troponin I 0.036 (0.000-0.056) ng/mL NT-Pro-B Natriuret Pep 2014 H (5-450) pg/mL Total Protein 6.4 (6.4-8.2) g/dL Albumin 3.1 L (3.4-5.0) g/dL Globulin 3.3 (2.3-3.5) g/dL Albumin/Globulin Ratio 0.9 L (1.2-2.2) Urine Color Urine Appearance Urine pH (4.5-8.0) Ur Specific [place] (1.008-1.030) Urine Protein (NEGATIVE) mg/dL Urine Glucose (UA) (NEGATIVE) mg/dL Urine Ketones (NEGATIVE) mg/dL Urine Occult Blood (NEGATIVE) Urine Nitrite (NEGAITVE) Urine Bilirubin (NEGATIVE) Urine Urobilinogen (NORMAL) mg/dL Ur Leukocyte Esterase (NEGATIVE) Urine RBC (0-5) Urine WBC (0-5) Ur Epithelial Cells Amorphous Sediment Urine Bacteria Urine Mucus 11/07/17 Range/Units 20:20 WBC (4.5-11.0) K/uL RBC (4.30-5.90) M/uL Hgb (12.0-15.0) g/dL Hct (40.0-54.0) % MCV (80-98) fL MCH (27-31) pg MCHC (32-36) % Plt Count (150-400) K/uL Neut % (Auto) (36-66) % Lymph % (Auto) (24-44) % [place] % (Auto) (2-6) % Eos % (Auto) (2-4) % Baso % (Auto) (0-1) % Sodium (140-148) mmol/L Potassium (3.6-5.2) mmol/L Chloride (100-108) mmol/L Carbon Dioxide (21-32) mmol/L Anion Gap (5.0-14.0) mmol/L BUN (7-18) mg/dL Creatinine (0.8-1.3) mg/dL Est Cr Clr Drug Dosing mL/min Estimated GFR (MDRD) (>60) Glucose (74-106) mg/dL Calcium (8.5-10.1) mg/dL Total Bilirubin (0.2-1.0) mg/dL AST (15-37) U/L ALT (12-78) U/L Alkaline Phosphatase (46-116) U/L Troponin I (0.000-0.056) ng/mL NT-Pro-B Natriuret Pep (5-450) pg/mL Total Protein (6.4-8.2) g/dL Albumin (3.4-5.0) g/dL Globulin (2.3-3.5) g/dL Albumin/Globulin Ratio (1.2-2.2) Urine Color Yellow Urine Appearance Clear Urine pH 5.0 (4.5-8.0) Ur Specific [place] 1.020 (1.008-1.030) Urine Protein Negative (NEGATIVE) mg/dL Urine Glucose (UA) 50 H (NEGATIVE) mg/dL Urine Ketones Negative (NEGATIVE) mg/dL Urine Occult Blood Negative (NEGATIVE) Urine Nitrite Negative (NEGAITVE) Urine Bilirubin Negative (NEGATIVE) Urine Urobilinogen 1 (NORMAL) mg/dL Ur Leukocyte Esterase Small (NEGATIVE) Urine RBC Not seen (0-5) Urine WBC 0-5 (0-5) Ur Epithelial Cells Rare Amorphous Sediment Not seen Urine Bacteria Few Urine Mucus Few Result Diagrams: 11/07/17 20:09 11/07/17 20:09 - Problem List (1) CHF (congestive heart failure) SNOMED Code(s): 26237741 ICD Code: I50.9 - HEART FAILURE, UNSPECIFIED Status: Acute Priority: High Current Visit: Yes Qualifiers: Heart failure type: unspecified Heart failure chronicity: acute on chronic Qualified Code(s): I50.9 - Heart failure, unspecified (2) Pericardial effusion SNOMED Code(s): 488898856 ICD Code: I31.3 - PERICARDIAL EFFUSION (NONINFLAMMATORY) Status: Acute Priority: Low Current Visit: Yes (3) Pleural effusion SNOMED Code(s): 23822236 ICD Code: J90 - PLEURAL EFFUSION, NOT ELSEWHERE CLASSIFIED Status: Acute Priority: Low Current Visit: Yes (4) Parkinson disease SNOMED Code(s): 54938076 ICD Code: G20 - PARKINSON'S DISEASE Status: Acute Priority: Medium Current Visit: Yes Problem List Initiated/Reviewed/Updated: Yes Orders Last 24hrs: Active Orders 24 hr Category Date Time Status Patient Status Manage Transfer [TRANSFER] Routine ADT 11/07/17 22:11 Active Cardiac Monitoring [RC] .As Directed Care 11/07/17 22:30 Active EKG Documentation Completion [RC] ASDIRECTED Care 11/07/17 20:11 Active Abdomen Pelvis wo Cont [CT] Stat Exams 11/07/17 20:10 Taken Chest 1V Frontal [CR] Urgent Exams 11/07/17 20:09 Taken UA W/MICROSCOPIC [URIN] Urgent Lab 11/07/17 20:20 Ordered Pantoprazole [ProTONIX IV] Med 11/08/17 09:00 Ordered 40 mg IVPUSH DAILY Resuscitation Status Routine Resus Stat 11/07/17 22:13 Ordered EKG 12 Lead [EK] Urgent Ther 11/07/17 20:09 Ordered Medication Orders Pantoprazole Sodium (Protonix Iv) 40 mg IVPUSH DAILY EDIL Assessment/Plan Comment:: ASSESSMENT AND PLAN - Congestive Heart Failure - patient with progressive shortness of breath and generalized edema. CT scan shows bilateral pleural effusions greater on the right with bibasilar opacity and some interstitial prominence in the the lungs likely related to an CHF. Greater than small size pericardial effusion. -IV Furosemide 60 mg in ER, order IV Furosemide 40mg in am. -Oxygen 2 liter per NC to keep oxygen sats greater than 93% -strict I&O -Telemetry Atrial Fib, chronic -Lovenox 40 mg subcut Parkinson Disease -assistance with ambulation -falls risk -continue medications -Melatonin 6mg at bedtime Maintenance issues - - DVT prophylaxis - Lovenox 40mg - GI prophylaxis - not indicated - Nutrition - low sodium diet - Madden catheter - not indicated CODE STATUS - DNR/DNI Admission status: Admit to Observation -I expect this patient to stay less than 24 hours, not to exceed 96 hours for evaluation and management of this problem. Disposition - anticipate discharge to home after the hospital stay Primary care physician - Dr. Coleman Hospitalist: Hardy Sauceda M.D.
[2017-11-07] MEDS ORDERED: Albuterol/Ipratropium 3.0-0.5 MG/3 ML Neb Soln NEB PRN (23:21)
[2017-11-07] MEDS ORDERED: Morphine 2 MG/ML Syringe IVPUSH PRN (23:21)
[2017-11-07] MEDS ORDERED: oxyCODONE 5 MG Tab PO PRN (23:21)
[2017-11-07] MEDS ORDERED: Acetaminophen 325 MG Tab PO PRN (23:21)
[2017-11-07] MEDS ORDERED: Ondansetron 4 MG Tab.DIS PO PRN (23:21)
[2017-11-07] MEDS ORDERED: Albuterol 0.083% 2.5 MG/3 ML Neb Soln NEB PRN (23:21)
[2017-11-07] MEDS ORDERED: Ondansetron 4 MG/2 ML SDV IV PRN (23:21)
[2017-11-07] MEDS ORDERED: LORazepam 2 MG/ML SDV IV PRN (23:21)
[2017-11-07] MEDS: Metoprolol Tartrate 25 MG Tab PO SCH (23:46)
[2017-11-07] MEDS: Magnesium Hydroxide 400 MG/5 ML Susp 30 ML Cup PO SCH (23:46)
[2017-11-08] MEDS: Enoxaparin 40 MG/0.4 ML Syringe SUBCUT SCH (08:42)
[2017-11-08] MEDS: Levothyroxine 112 MCG Tab PO SCH (08:43)
[2017-11-08] MEDS: Metoprolol Tartrate 25 MG Tab PO SCH (08:43)
[2017-11-08] MEDS: Sulfamethoxazole/Trimethoprim 800-160 MG Tab PO SCH (08:43)
[2017-11-08] MEDS: Gabapentin 300 MG Cap PO SCH ×3 (08:43→20:43)
[2017-11-08] MEDS: Terazosin 5 MG Cap PO SCH (08:43)
[2017-11-08] MEDS: predniSONE 5 MG Tab PO SCH (08:44)
[2017-11-08] MEDS: Furosemide 40 MG/4 ML VIAL IVPUSH SCH (08:44)
[2017-11-08] MEDS: Pantoprazole 40 MG Vial IVPUSH SCH (08:44)
[2017-11-08] MEDS: Montelukast 10 MG Tab PO SCH (08:44)
[2017-11-08] MEDS: Magnesium Hydroxide 400 MG/5 ML Susp 30 ML Cup PO SCH ×2 (12:22→22:21)
--- NOTE | 2017-11-08 12:46 | PCM.PN ---
- General Info Date of Service: 11/08/17 Functional Status: Reports: Pain Controlled, Tolerating Diet - Review of Systems General: Reports: Weakness Pulmonary: Reports: Shortness of Breath Systems Review Comment:: there were no acute events overnight. He is feeling less short of breath than at the time of presentation. Moderate response to diuresis but more significant clinical improvement. No complaints of chest pain or chest tightness. No fevers. We did perform a bedside ultrasound today and his pericardial effusion appears small based on echocardiography. - Patient Data Vitals - Most Recent: Last Vital Signs Temp 36.2 C 11/08/17 10:48 Pulse 72 11/08/17 10:48 Resp 18 11/08/17 10:48 BP 102/47 L 11/08/17 10:48 Pulse Ox 94 L 11/08/17 12:40 Weight - Most Recent: 85.049 kg I&O - Last 24 Hours: Intake & Output 11/07/17 11/08/17 11/08/17 22:59 06:59 14:59 Intake Total 240 Output Total 1200 Balance 240 -1200 Lab Results Last 24 Hours: Laboratory Results - last 24 hr 11/07/17 11/07/17 11/07/17 Range/Units 20:09 20:09 20:09 WBC 9.6 (4.5-11.0) K/uL RBC 3.74 L (4.30-5.90) M/uL Hgb 11.9 L (12.0-15.0) g/dL Hct 35.2 L (40.0-54.0) % MCV 94 (80-98) fL MCH 32 H (27-31) pg MCHC 34 (32-36) % Plt Count 192 (150-400) K/uL Neut % (Auto) 83 H (36-66) % Lymph % (Auto) 8 L (24-44) % [place] % (Auto) 8 H (2-6) % Eos % (Auto) 1 L (2-4) % Baso % (Auto) 0 (0-1) % Sodium 132 L (140-148) mmol/L Potassium 4.0 (3.6-5.2) mmol/L Chloride 95 L (100-108) mmol/L Carbon Dioxide 29 (21-32) mmol/L Anion Gap 12.0 (5.0-14.0) mmol/L BUN 20 H (7-18) mg/dL Creatinine 1.4 H (0.8-1.3) mg/dL Est Cr Clr Drug Dosing 34.69 mL/min Estimated GFR (MDRD) 48 L (>60) Glucose 171 H (74-106) mg/dL Calcium 8.1 L (8.5-10.1) mg/dL Total Bilirubin 0.6 (0.2-1.0) mg/dL AST 20 (15-37) U/L ALT 26 (12-78) U/L Alkaline Phosphatase 60 (46-116) U/L Troponin I 0.036 (0.000-0.056) ng/mL NT-Pro-B Natriuret Pep 2014 H (5-450) pg/mL Total Protein 6.4 (6.4-8.2) g/dL Albumin 3.1 L (3.4-5.0) g/dL Globulin 3.3 (2.3-3.5) g/dL Albumin/Globulin Ratio 0.9 L (1.2-2.2) Urine Color Urine Appearance Urine pH (4.5-8.0) Ur Specific [place] (1.008-1.030) Urine Protein (NEGATIVE) mg/dL Urine Glucose (UA) (NEGATIVE) mg/dL Urine Ketones (NEGATIVE) mg/dL Urine Occult Blood (NEGATIVE) Urine Nitrite (NEGAITVE) Urine Bilirubin (NEGATIVE) Urine Urobilinogen (NORMAL) mg/dL Ur Leukocyte Esterase (NEGATIVE) Urine RBC (0-5) Urine WBC (0-5) Ur Epithelial Cells Amorphous Sediment Urine Bacteria Urine Mucus 11/07/17 11/08/17 11/08/17 Range/Units 20:20 05:25 05:25 WBC 6.5 (4.5-11.0) K/uL RBC 3.48 L (4.30-5.90) M/uL Hgb 11.2 L (12.0-15.0) g/dL Hct 32.6 L (40.0-54.0) % MCV 94 (80-98) fL MCH 32 H (27-31) pg MCHC 34 (32-36) % Plt Count 181 (150-400) K/uL Neut % (Auto) 71 H (36-66) % Lymph % (Auto) 14 L (24-44) % [place] % (Auto) 14 H (2-6) % Eos % (Auto) 1 L (2-4) % Baso % (Auto) 0 (0-1) % Sodium 136 L (140-148) mmol/L Potassium 3.7 (3.6-5.2) mmol/L Chloride 98 L (100-108) mmol/L Carbon Dioxide 30 (21-32) mmol/L Anion Gap 11.7 (5.0-14.0) mmol/L BUN 18 (7-18) mg/dL Creatinine 1.2 (0.8-1.3) mg/dL Est Cr Clr Drug Dosing 40.47 mL/min Estimated GFR (MDRD) 57 L (>60) Glucose 117 H (74-106) mg/dL Calcium 8.1 L (8.5-10.1) mg/dL Total Bilirubin (0.2-1.0) mg/dL AST (15-37) U/L ALT (12-78) U/L Alkaline Phosphatase (46-116) U/L Troponin I (0.000-0.056) ng/mL NT-Pro-B Natriuret Pep (5-450) pg/mL Total Protein (6.4-8.2) g/dL Albumin (3.4-5.0) g/dL Globulin (2.3-3.5) g/dL Albumin/Globulin Ratio (1.2-2.2) Urine Color Yellow Urine Appearance Clear Urine pH 5.0 (4.5-8.0) Ur Specific [place] 1.020 (1.008-1.030) Urine Protein Negative (NEGATIVE) mg/dL Urine Glucose (UA) 50 H (NEGATIVE) mg/dL Urine Ketones Negative (NEGATIVE) mg/dL Urine Occult Blood Negative (NEGATIVE) Urine Nitrite Negative (NEGAITVE) Urine Bilirubin Negative (NEGATIVE) Urine Urobilinogen 1 (NORMAL) mg/dL Ur Leukocyte Esterase Small (NEGATIVE) Urine RBC Not seen (0-5) Urine WBC 0-5 (0-5) Ur Epithelial Cells Rare Amorphous Sediment Not seen Urine Bacteria Few Urine Mucus Few Med Orders - Current: Current Medications Acetaminophen (Tylenol) 650 mg PO Q4H PRN PRN Reason: Pain (Mild 1-3)/fever Albuterol (Proventil Neb Soln) 2.5 mg NEB Q4H PRN PRN Reason: Shortness Of Breath/wheezing Albuterol/Ipratropium (Duoneb 3.0-0.5 Mg/3 Ml) 3 ml NEB QID PRN PRN Reason: Shortness Of Breath/wheezing Azathioprine (Imuran) 50 mg PO DAILY [facility] Last Admin: 11/08/17 08:43 Dose: 50 mg Enoxaparin Sodium (Lovenox) 40 mg SUBCUT DAILY [facility] Last Admin: 11/08/17 08:42 Dose: 40 mg Furosemide (Lasix) 40 mg IVPUSH DAILY [facility] Last Admin: 11/08/17 08:44 Dose: 40 mg Gabapentin (Neurontin) 300 mg PO TID [facility] Last Admin: 11/08/17 08:43 Dose: 300 mg Levothyroxine Sodium (Levothyroxine) 112 mcg PO ACBRK [facility] Last Admin: 11/08/17 08:43 Dose: 112 mcg Lorazepam (Ativan) 1 mg IV Q6H PRN PRN Reason: Nausea/Vomiting Magnesium Hydroxide (Milk Of Magnesia) 30 ml PO Q12H [facility] Last Admin: 11/08/17 12:22 Dose: 30 ml Melatonin (Melatonin) 6 mg PO BEDTIME [facility] Metoprolol Tartrate (Lopressor) 12.5 mg PO BID [facility] Last Admin: 11/08/17 08:43 Dose: 12.5 mg Montelukast Sodium (Singulair) 10 mg PO DAILY [facility] Last Admin: 11/08/17 08:44 Dose: 10 mg Morphine Sulfate (Morphine) 2 mg IVPUSH Q2H PRN PRN Reason: Pain (severe 7-10) Ondansetron HCl (Zofran Odt) 4 mg PO Q6H PRN PRN Reason: Nausea able to take PO Ondansetron HCl (Zofran) 4 mg IV Q4H PRN PRN Reason: Nausea/Vomiting Oxycodone HCl (Oxycodone) 5 mg PO Q4H PRN PRN Reason: Pain (moderate 4-6) Pantoprazole Sodium (Protonix Iv) 40 mg IVPUSH DAILY [facility] Last Admin: 11/08/17 08:44 Dose: 40 mg Paroxetine HCl (Paxil) 20 mg PO BEDTIME [facility] Prednisone (Prednisone) 5 mg PO DAILY [facility] Last Admin: 05/26/18 08:44 Dose: 5 mg Terazosin HCl (Hytrin) 5 mg PO DAILY [facility] Last Admin: 11/08/17 08:43 Dose: 5 mg Trimethoprim/Sulfamethoxazole (Septra Ds) 1 tab PO DAILY [facility] Last Admin: 11/08/17 08:43 Dose: 1 tab Discontinued Medications Furosemide (Lasix) 60 mg IVPUSH ONETIME ONE Stop: 11/07/17 21:44 Last Admin: 11/07/17 22:00 Dose: 60 mg Simethicone (Simethicone) 160 mg PO ONETIME ONE Stop: 11/07/17 21:45 Last Admin: 11/08/17 00:26 Dose: Not Given - Exam Quality Assessment: Supplemental Oxygen General: Alert, Oriented, Cooperative, No Acute Distress Neck: Supple, JVD Lungs: Clear to Auscultation, Normal Respiratory Effort Cardiovascular: Regular Rate, Regular Rhythm, Murmurs GI/Abdominal Exam: Soft, No Distention Extremities: Pedal Edema (pitting edema to the mid ivory bilaterally ) Psy/Mental Status: Alert, Normal Affect - Problem List Review Problem List Initiated/Reviewed/Updated: Yes - My Orders Last 24 Hours: My Active Orders 11/08/17 12:41 Potassium Chloride [Klor-Con M20] 40 meq PO ONETIME ONE 11/08/17 12:42 Admission Status [Patient Status] [ADT] Routine Communication Order [RC] ROUTINE Discontinue Telemetry Monitoring [Cardiac Monitoring Discontinue] [RC] Click to Edit 11/08/17 12:44 Up With Assistance [RC] ASDIRECTED 11/08/17 15:00 Furosemide [Lasix] 40 mg IVPUSH ONETIME ONE 11/09/17 05:00 BASIC METABOLIC PANEL,BMP [CHEM] Timed - Plan Plan:: ASSESSMENT AND PLAN - Acute systolic Congestive Heart Failure - patient with progressive shortness of breath and generalized edema complicated by bilateral effusions and hypoxic respiratory failure. Responding well to treatment so far. pericardial effusion appear small and is likely not contributing to the heart failure. potassium is on the low side of normal with diuresis and will empirically receive supplementation this afternoon. -second dose of diuretics this afternoon -Reassess volume status in the morning -continue medical management -supplement oxygen -strict I&O -discontinue Telemetry Atrial Fib, chronic - rate controlled at this time. -Lovenox 40 mg subcut Stage III chronic kidney disease - Creatinine slightly better after diuresis. Parkinson Disease - disease is stable and managed fairly well at this point. -assistance with ambulation -falls risk -continue medications -Melatonin 6mg at bedtime Maintenance issues - - DVT prophylaxis - Lovenox 40mg - GI prophylaxis - not indicated - Nutrition - low sodium diet Admission status: patient was initially admitted for observation but he has hypoxic respiratory failure due to acute congestive heart failure and is not safe for outpatient management. He will be admitted to inpatient status for further management. Disposition - anticipate discharge to home after the hospital stay Hardy Sauceda M.D.
[2017-11-08] MEDS ORDERED: Potassium Chloride 20 MEQ Tab.ER PO ONE (13:30)
[2017-11-08] MEDS ORDERED: Furosemide 40 MG/4 ML VIAL IVPUSH ONE (15:00)
[2017-11-08] MEDS ORDERED: Melatonin 3 MG Tab PO SCH (21:00)
[2017-11-08] MEDS ORDERED: PARoxetine 20 MG Tab PO SCH (21:00)
--- NOTE | 2017-11-08 21:03 | PCM.SN ---
- Free Text/Narrative Note: time: 2099. call from [address] [place] [address] s: request to hold Lopressor 12.5 mg po , dose due at 2100 o: blood pressure 93/62, no chest pain or shortness of breath a: hypotension p: hold Lopressor this evening. next dose due at 0900 continue present plan of care.
[2017-11-09] MEDS: Levothyroxine 112 MCG Tab PO SCH (07:36)
[2017-11-09] MEDS: Terazosin 5 MG Cap PO SCH (09:03)
[2017-11-09] MEDS: Furosemide 40 MG/4 ML VIAL IVPUSH SCH (09:03)
[2017-11-09] MEDS: Metoprolol Tartrate 25 MG Tab PO SCH (09:03)
[2017-11-09] MEDS: predniSONE 5 MG Tab PO SCH (09:04)
[2017-11-09] MEDS: Pantoprazole 40 MG Vial IVPUSH SCH (09:04)
[2017-11-09] MEDS: Gabapentin 300 MG Cap PO SCH (09:04)
[2017-11-09] MEDS: Montelukast 10 MG Tab PO SCH (09:04)
[2017-11-09] MEDS: Enoxaparin 40 MG/0.4 ML Syringe SUBCUT SCH (09:04)
[2017-11-09] MEDS: Sulfamethoxazole/Trimethoprim 800-160 MG Tab PO SCH (09:04)
--- NOTE | 2017-11-09 10:25 | PCM.DCSUM1 ---
Discharge Summary - Hospital Course Brief History: 87-year-old male with history of systolic congestive heart failure, severe aortic stenosis and paroxysmal atrial fibrillation who presented with weakness and shortness of breath. He was admitted for management of congestive heart failure exacerbation. - Discharge Data Discharge Date: 11/09/17 Discharge Disposition: Home, Self-Care 01 Condition: Fair - Discharge Diagnosis/Problem(s) (1) Acute systolic congestive heart failure SNOMED Code(s): 337406630, 722153767 ICD Code: I50.21 - ACUTE SYSTOLIC (CONGESTIVE) HEART FAILURE Status: Acute Current Visit: Yes (2) Acute respiratory failure with hypoxia SNOMED Code(s): 41494335, 866343776 ICD Code: J96.01 - ACUTE RESPIRATORY FAILURE WITH HYPOXIA Status: Acute Current Visit: Yes (3) Pericardial effusion SNOMED Code(s): 623060449 ICD Code: I31.3 - PERICARDIAL EFFUSION (NONINFLAMMATORY) Status: Chronic Priority: Low Current Visit: Yes (4) Severe aortic stenosis SNOMED Code(s): 11925350 ICD Code: I35.0 - NONRHEUMATIC AORTIC (VALVE) STENOSIS Status: Chronic Current Visit: No (5) PAF (paroxysmal atrial fibrillation) SNOMED Code(s): 506183609 ICD Code: I48.0 - PAROXYSMAL ATRIAL FIBRILLATION Status: Chronic Current Visit: No (6) CKD (chronic kidney disease), stage III SNOMED Code(s): 002925547 ICD Code: N18.3 - CHRONIC KIDNEY DISEASE, STAGE 3 (MODERATE) Status: Chronic Current Visit: Yes - Patient Summary/Data Hospital Course: Leobardo presented to the emergency room with progressive shortness of breath and a 4 pound weight gain despite increasing his outpatient dose of furosemide. Workup in the emergency room was suggestive of congestive heart failure with some pulmonary edema and pulmonary vascular prominence on chest x-ray. Examination also consistent with congestive heart failure. He received IV furosemide and was admitted to the hospital for further management. He responded well to diuresis over the next 2 days. We had a slow but steady improvement in his respiratory status and he has been weaned off the supplemental oxygen. He does remain mildly short of breath, especially with activity but is nearly back to his baseline. Weight has improved with the diuresis. Kidney function has remained stable with diuresis. I suspect the heart failure was multifactorial with reduced ejection fraction, severe aortic stenosis and atrial fibrillation contributing. He has responded well to the diuresis and I believe he is safe for outpatient management at this time. I did increase his furosemide to 40 mg twice daily. He would benefit from early clinic follow-up. - Patient Instructions Diet: Heart Healthy Diet, Low Sodium Activity: As Tolerated Showering/Bathing: May Shower Notify Provider of: Fever, Increased Pain, Nausea and/or Vomiting Other/Special Instructions: 1. You were in the hospital for management of acute systolic congestive heart failure. I suspect the exacerbation was caused by a combination of atrial fibrillation and your severe aortic stenosis. Your symptoms have been improving with diuretic therapy. I do recommend that we increase your furosemide (Lasix) to 40 mg twice daily. You should take one tablet in the morning after you wake up and the second tablet in the early afternoon, approximately 6 hours later. You should keep track of your weight every day and alert your primary care physician if you have a weight gain of more than two pounds in 1 day or four pounds in 2 days. 2. Please continue your usual home medications as previously prescribed. 3. Seek medical attention if you develop fever greater than 101, have sudden onset of shortness of breath or if you develop chest pain/pressure. - Discharge Plan Prescriptions/Med Rec: Furosemide [Lasix] 40 mg PO BID #60 tablet Home Medications: Home Meds Gabapentin [Neurontin] 300 mg PO TID 03/14/14 [History] Levothyroxine 112 mcg PO ACBRK 03/14/14 [History] PARoxetine [Paxil] 20 mg PO BEDTIME 03/14/14 [History] Ranitidine [Zantac] 150 mg PO BID 03/14/14 [History] Albuterol Sulfate [Albuterol Sulfate HFA] 2 puff INH Q4H PRN 06/01/14 [History] [place]-3/DHA/Epa/Fish Oil [Fish Oil Dr 500 mg Softgel] 1,000 mg PO DAILY [History] Sulfamethoxazole/Trimethoprim [Bactrim Ds Tablet] 1 tab PO DAILY 06/01/14 [ History] Terazosin [Hytrin] 5 mg PO DAILY 06/01/14 [History] Vitamin B Complex [B Complex] 2 tab PO DAILY 06/01/14 [History] Montelukast [Singulair] 10 mg PO DAILY 10/16/17 [History] Aspirin 325 mg PO DAILY 11/07/17 [History] Metoprolol Tartrate 12.5 mg PO BID 11/07/17 [History] Vitamin E 400 unit PO DAILY 11/07/17 [History] azaTHIOprine [Imuran] 50 mg PO DAILY 11/07/17 [History] predniSONE [Prednisone] 5 mg PO DAILY 11/07/17 [History] Furosemide [Lasix] 40 mg PO BID #60 tablet 11/09/17 [Rx] Patient Handouts: Furosemide tablets, Heart Failure Referrals: Sander Coleman MD [Primary Care Provider] - (1 week - follow-up hospital stay for congestive heart failure) - Discharge Summary/Plan Comment DC Time >30 min.: No (25) - Patient Data Vitals - Most Recent: Last Vital Signs Temp 36.7 C 11/09/17 07:20 Pulse 80 11/09/17 09:03 Resp 20 11/09/17 07:20 BP 113/52 L 11/09/17 09:03 Pulse Ox 92 L 11/09/17 07:20 Weight - Most Recent: 84.277 kg I&O - Last 24 hours: Intake & Output 11/08/17 11/09/17 11/09/17 22:59 06:59 14:59 Intake Total 520 480 Output Total 1500 250 600 Balance -980 -250 -120 Lab Results - Last 24 hrs: Laboratory Results - last 24 hr 11/09/17 Range/Units 05:08 Sodium 135 L (140-148) mmol/L Potassium 4.2 (3.6-5.2) mmol/L Chloride 97 L (100-108) mmol/L Carbon Dioxide 32 (21-32) mmol/L Anion Gap 10.2 (5.0-14.0) mmol/L BUN 21 H (7-18) mg/dL Creatinine 1.4 H (0.8-1.3) mg/dL Est Cr Clr Drug Dosing 34.69 mL/min Estimated GFR (MDRD) 48 L (>60) Glucose 103 (74-106) mg/dL Calcium 8.2 L (8.5-10.1) mg/dL Med Orders - Current: Current Medications Acetaminophen (Tylenol) 650 mg PO Q4H PRN PRN Reason: Pain (Mild 1-3)/fever Albuterol (Proventil Neb Soln) 2.5 mg NEB Q4H PRN PRN Reason: Shortness Of Breath/wheezing Albuterol/Ipratropium (Duoneb 3.0-0.5 Mg/3 Ml) 3 ml NEB QID PRN PRN Reason: Shortness Of Breath/wheezing Azathioprine (Imuran) 50 mg PO DAILY [facility] Last Admin: 11/09/17 09:03 Dose: 50 mg Enoxaparin Sodium (Lovenox) 40 mg SUBCUT DAILY [facility] Last Admin: 11/09/17 09:04 Dose: 40 mg Furosemide (Lasix) 40 mg IVPUSH DAILY [facility] Last Admin: 11/09/17 09:03 Dose: 40 mg Gabapentin (Neurontin) 300 mg PO TID [facility] Last Admin: 11/09/17 09:04 Dose: 300 mg Levothyroxine Sodium (Levothyroxine) 112 mcg PO ACBRK [facility] Last Admin: 11/09/17 07:36 Dose: 112 mcg Lorazepam (Ativan) 1 mg IV Q6H PRN PRN Reason: Nausea/Vomiting Magnesium Hydroxide (Milk Of Magnesia) 30 ml PO Q12H [facility] Last Admin: 11/08/17 22:21 Dose: 30 ml Melatonin (Melatonin) 6 mg PO BEDTIME [facility] Last Admin: 11/08/17 20:43 Dose: 6 mg Metoprolol Tartrate (Lopressor) 12.5 mg PO BID [facility] Last Admin: 11/09/17 09:03 Dose: 12.5 mg Montelukast Sodium (Singulair) 10 mg PO DAILY [facility] Last Admin: 11/09/17 09:04 Dose: 10 mg Morphine Sulfate (Morphine) 2 mg IVPUSH Q2H PRN PRN Reason: Pain (severe 7-10) Ondansetron HCl (Zofran Odt) 4 mg PO Q6H PRN PRN Reason: Nausea able to take PO Ondansetron HCl (Zofran) 4 mg IV Q4H PRN PRN Reason: Nausea/Vomiting Oxycodone HCl (Oxycodone) 5 mg PO Q4H PRN PRN Reason: Pain (moderate 4-6) Pantoprazole Sodium (Protonix Iv) 40 mg IVPUSH DAILY [facility] Last Admin: 11/09/17 09:04 Dose: 40 mg Paroxetine HCl (Paxil) 20 mg PO BEDTIME [facility] Last Admin: 11/08/17 20:43 Dose: 20 mg Prednisone (Prednisone) 5 mg PO DAILY [facility] Last Admin: 11/09/17 09:04 Dose: 5 mg Terazosin HCl (Hytrin) 5 mg PO DAILY [facility] Last Admin: 11/09/17 09:03 Dose: 5 mg Trimethoprim/Sulfamethoxazole (Septra Ds) 1 tab PO DAILY [facility] Last Admin: 11/09/17 09:04 Dose: 1 tab Discontinued Medications Furosemide (Lasix) 60 mg IVPUSH ONETIME ONE Stop: 11/07/17 21:44 Last Admin: 11/07/17 22:00 Dose: 60 mg Furosemide (Lasix) 40 mg IVPUSH ONETIME ONE Stop: 11/08/17 15:01 Last Admin: 11/08/17 14:00 Dose: 40 mg Potassium Chloride (Klor-Con M20) 40 meq PO ONETIME ONE Stop: 11/08/17 13:31 Last Admin: 11/08/17 13:48 Dose: 40 meq Simethicone (Simethicone) 160 mg PO ONETIME ONE Stop: 11/07/17 21:45 Last Admin: 11/08/17 00:26 Dose: Not Given - Exam Quality Assessment: Denies: Supplemental Oxygen General: Reports: Alert, Oriented, Cooperative, No Acute Distress Neck: Reports: Supple Lungs: Reports: Clear to Auscultation, Normal Respiratory Effort Cardiovascular: Reports: Regular Rate, Irregular Rhythm, Murmurs GI/Abdominal Exam: Soft, No Distention Extremities: Pedal Edema (mild ankle edema) Psy/Mental Status: Reports: Alert, Normal Affect
[2017-11-09] MEDS: Magnesium Hydroxide 400 MG/5 ML Susp 30 ML Cup PO SCH (11:47)
[2017-11-09 12:54] VITALS: BP 96/67
--- NOTE | 2017-11-11 09:36 | CR ---
Cardiomegaly is mild. Hazy densities within both lungs are suggestive CHF and perihilar streaky densi ties. Small pleural effusions as well as interval.
== END 2017-11-09 01:30 | disposition home or self-care (01) | DRG 291 ==
LOC: JP.ED 19:01 → JP.MS 22:11 → OBSVTOIN 11-08 12:42
PROVIDERS: ADMIT Internal Medicine; ATTEND Internal Medicine
DX: I50.9 Heart failure, unspecified (principal); I50.21 Acute systolic (congestive) heart failure; J96.01 Acute respiratory failure with hypoxia; Z66 Do not resuscitate; I31.3 Pericardial effusion (noninflammatory); J90 Pleural effusion, not elsewhere classified; G20 Parkinson's disease; E03.9 Hypothyroidism, unspecified; J45.909 Unspecified asthma, uncomplicated; I48.0 Paroxysmal atrial fibrillation; N18.3 Chronic kidney disease, stage 3 (moderate); R06.02 Shortness of breath; I35.0 Nonrheumatic aortic (valve) stenosis; I95.9 Hypotension, unspecified; H54.7 Unspecified visual loss; H91.90 Unspecified hearing loss, unspecified ear; Z85.828 Personal history of other malignant neoplasm of skin; Z96.649 Presence of unspecified artificial hip joint; Z79.82 Long term (current) use of aspirin; Z79.52 Long term (current) use of systemic steroids
CPT/HCPCS: 36415 ×2; 71045; 74176; 80048; 80053; 81001; 83880; 84484; 85025 ×2; 93005 ×2; 96374; 99285; A9270 ×10; C9113; J1650; J1940 ×2; J7500

== ENCOUNTER 2017-11-25 12:46 | Emergency (ER) | payer MEDICARE, BC ==
[2017-11-25] MEDS ORDERED: Furosemide 40 MG/4 ML VIAL IVPUSH ONE (13:41)
[2017-11-25] MEDS ORDERED: Sodium Chloride 0.9% 10 ML Syringe FLUSH PRN (13:41)
--- NOTE | 2017-11-25 13:49 | EDM.PDOC ---
ED HPI GENERAL MEDICAL PROBLEM - General Chief Complaint: Cardiovascular Problem Stated Complaint: A-FIB Time Seen by Provider: 11/25/17 13:44 Source of Information: Reports: Patient, Family, Old Records, RN Notes Reviewed History Limitations: Reports: No Limitations - History of Present Illness INITIAL COMMENTS - FREE TEXT/NARRATIVE: 87-year-old gentleman presents to the emergency department today sent over from clinic for atrial fibrillation and shortness of breath on exertion. He has a known history of paroxysmal atrial fibrillation family believes this is the third event however they are suspicious that he goes in and out of atrial fibrillation quite often. He states over the last week and half he has progressively gotten more short of breath with weight gain he usually sleeps on one pillow that now has gone to 2 pillows. At rest he states his spine however when he exerts himself is when he notices his dyspnea. - Related Data Allergies Allergy/AdvReac Type Severity Reaction Status Date / Time No Known Allergies Allergy Verified 11/25/17 12:59 Home Meds: Home Meds Gabapentin [Neurontin] 300 mg PO TID 03/14/14 [History] Levothyroxine 112 mcg PO ACBRK 03/14/14 [History] PARoxetine [Paxil] 20 mg PO BEDTIME 03/14/14 [History] Ranitidine [Zantac] 150 mg PO BID 03/14/14 [History] Albuterol Sulfate [Albuterol Sulfate HFA] 2 puff INH Q4H PRN 06/01/14 [History] [place]-3/DHA/Epa/Fish Oil [Fish Oil Dr 500 mg Softgel] 1,000 mg PO DAILY [History] Sulfamethoxazole/Trimethoprim [Bactrim Ds Tablet] 1 tab PO DAILY 06/01/14 [ History] Terazosin [Hytrin] 5 mg PO DAILY 06/01/14 [History] Vitamin B Complex [B Complex] 2 tab PO DAILY 06/01/14 [History] Montelukast [Singulair] 10 mg PO DAILY 10/16/17 [History] Aspirin 325 mg PO DAILY 11/07/17 [History] Metoprolol Tartrate 12.5 mg PO BID 11/07/17 [History] Vitamin E 400 unit PO DAILY 11/07/17 [History] azaTHIOprine [Imuran] 50 mg PO DAILY 11/07/17 [History] predniSONE [Prednisone] 5 mg PO DAILY 11/07/17 [History] Furosemide [Lasix] 40 mg PO BID #60 tablet 11/09/17 [Rx] Past Medical History HEENT History: Reports: Hard of Hearing, Impaired Vision Cardiovascular History: Reports: Afib, Heart Failure, Other (See Below) 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 Respiratory History: Reports: Asthma Genitourinary History: Reports: Prostate Disorder Musculoskeletal History: Reports: Arthritis Endocrine/Metabolic History: Reports: Hypothyroidism Oncologic (Cancer) History: Reports: Squamous Cell Carcinoma Other Oncologic History: skin - Infectious Disease History Infectious Disease History: Reports: Chicken Pox - Past Surgical History HEENT Surgical History: Reports: Cataract Surgery GI Surgical History: Reports: Cholecystectomy Musculoskeletal Surgical History: Reports: Hip Replacement, Other (See Below) Other Musculoskeletal Surgeries/Procedures:: foot drop Social & Family History - Tobacco Use Smoking Status *Q: Never Smoker - Caffeine Use Caffeine Use: Reports: Coffee, Soda Other Caffeine Use: 3 cups per day - Recreational Drug Use Recreational Drug Use: No ED ROS GENERAL - Review of Systems Review Of Systems: See Below Constitutional: Denies: Fever, Chills, Weakness HEENT: Reports: No Symptoms Respiratory: Reports: Shortness of Breath. Denies: Cough, Sputum Cardiovascular: Reports: Dyspnea on Exertion. Denies: Chest Pain, Palpitations , Syncope GI/Abdominal: Reports: Distension : Reports: No Symptoms Musculoskeletal: Reports: No Symptoms Skin: Reports: No Symptoms Neurological: Reports: No Symptoms ED EXAM, GENERAL - Physical Exam Exam: See Below Free Text/Narrative:: General: Elderly male, not in any distress, alert and oriented x3 HEENT: head is atraumatic normocephalic, eyes pupils equal round reactive to light, sclera clear no conjunctivitis appreciated. Ears tympanic membranes clear and ziegler landmarks and light reflex are present bilaterally canals are clear. Nose no septal deviation, nares are clear, no blood present. Mouth mucosa is moist and pink no erythema or exudate noted in soft palate, tongue is midline uvula is midline, dentures in place. Neck: Supple no thyromegaly no tracheal deviation. Slight JVD noted Nodes: Cervical nodes subclavicular nodes nontender no palpable lymphadenopathy noted. Lungs: Breath sounds are distant crackles can be appreciated the bases bilaterally CV: Regular rate and rhythm S1 and S2 appreciated no murmurs rubs or gallops noted. Abdomen: Soft, nontender, no palpable masses or organomegaly appreciated, moderate distention, no guarding bowel sounds are present, . Neuro: Cranial nerves II through XII grossly intact Skin: Warm and dry, intact Extremities: +1 pitting edema bilaterally Course - Vital Signs Last Recorded V/S: Last Vital Signs Temp 97 F 11/25/17 12:58 Pulse 79 11/25/17 14:18 Resp 16 11/25/17 14:18 BP 129/65 11/25/17 14:18 Pulse Ox 90 L 11/25/17 14:18 - Orders/Labs/Meds Orders: Active Orders 24 hr Category Date Time Status EKG Documentation Completion [RC] ASDIRECTED Care 11/25/17 13:42 Active Peripheral IV Care [RC] . DIRECTED Care 11/25/17 13:41 Active Sodium Chloride 0.9% [Saline Flush] Med 11/25/17 13:41 Active 10 ml FLUSH ASDIRECTED PRN Peripheral IV Insertion Adult [OM.PC] Urgent Oth 11/25/17 13:41 Ordered EKG 12 Lead [EK] Stat Ther 11/25/17 13:42 Ordered Medication Orders Sodium Chloride (Saline Flush) 10 ml FLUSH ASDIRECTED PRN PRN Reason: Keep Vein Open Last Admin: 11/25/17 13:58 Dose: 10 ml Labs: Laboratory Tests 11/25/17 11/25/17 11/25/17 Range/Units 13:46 13:46 13:46 WBC 7.0 (4.5-11.0) K/uL RBC 3.64 L (4.30-5.90) M/uL Hgb 11.5 L (12.0-15.0) g/dL Hct 34.6 L (40.0-54.0) % MCV 95 (80-98) fL MCH 32 H (27-31) pg MCHC 33 (32-36) % Plt Count 192 (150-400) K/uL Neut % (Auto) 79 H (36-66) % Lymph % (Auto) 12 L (24-44) % Glenn % (Auto) 8 H (2-6) % Eos % (Auto) 1 L (2-4) % Baso % (Auto) 0 (0-1) % PT (9.5-12.0) sec INR (0.80-1.20) Sodium 134 L (140-148) mmol/L Potassium 4.2 (3.6-5.2) mmol/L Chloride 96 L (100-108) mmol/L Carbon Dioxide 29 (21-32) mmol/L Anion Gap 13.2 (5.0-14.0) mmol/L BUN 23 H (7-18) mg/dL Creatinine 1.5 H (0.8-1.3) mg/dL Est Cr Clr Drug Dosing 31.83 mL/min Estimated GFR (MDRD) 44 L (>60) Glucose 103 (74-106) mg/dL Calcium 8.7 (8.5-10.1) mg/dL Total Bilirubin 0.4 (0.2-1.0) mg/dL AST 25 (15-37) U/L ALT 31 (12-78) U/L Alkaline Phosphatase 62 (46-116) U/L Troponin I (0.000-0.056) ng/mL NT-Pro-B Natriuret Pep 4009 H (5-450) pg/mL Total Protein 6.3 L (6.4-8.2) g/dL Albumin 3.2 L (3.4-5.0) g/dL Globulin 3.1 (2.3-3.5) g/dL Albumin/Globulin Ratio 1.0 L (1.2-2.2) 11/25/17 11/25/17 Range/Units 13:46 13:46 WBC (4.5-11.0) K/uL RBC (4.30-5.90) M/uL Hgb (12.0-15.0) g/dL Hct (40.0-54.0) % MCV (80-98) fL MCH (27-31) pg MCHC (32-36) % Plt Count (150-400) K/uL Neut % (Auto) (36-66) % Lymph % (Auto) (24-44) % Glenn % (Auto) (2-6) % Eos % (Auto) (2-4) % Baso % (Auto) (0-1) % PT 10.4 (9.5-12.0) sec INR 0.97 (0.80-1.20) Sodium (140-148) mmol/L Potassium (3.6-5.2) mmol/L Chloride (100-108) mmol/L Carbon Dioxide (21-32) mmol/L Anion Gap (5.0-14.0) mmol/L BUN (7-18) mg/dL Creatinine (0.8-1.3) mg/dL Est Cr Clr Drug Dosing mL/min Estimated GFR (MDRD) (>60) Glucose (74-106) mg/dL Calcium (8.5-10.1) mg/dL Total Bilirubin (0.2-1.0) mg/dL AST (15-37) U/L ALT (12-78) U/L Alkaline Phosphatase (46-116) U/L Troponin I 0.020 (0.000-0.056) ng/mL NT-Pro-B Natriuret Pep (5-450) pg/mL Total Protein (6.4-8.2) g/dL Albumin (3.4-5.0) g/dL Globulin (2.3-3.5) g/dL Albumin/Globulin Ratio (1.2-2.2) Meds: Medications Generic Name Dose Route Start Last Admin Trade Name Freq PRN Reason Stop Dose Admin Sodium Chloride 10 ml 11/25/17 13:41 11/25/17 13:58 Saline Flush FLUSH 10 ml ASDIRECTED PRN Administration Keep Vein Open Discontinued Medications Generic Name Dose Route Start Last Admin Trade Name Freq PRN Reason Stop Dose Admin Furosemide 40 mg 11/25/17 13:41 11/25/17 13:53 Lasix IVPUSH 11/25/17 13:42 40 mg ONETIME ONE Administration Departure - Departure Time of Disposition: 16:03 Disposition: Home, Self-Care 01 Condition: Fair Clinical Impression: CHF, Congestive heart failure Referrals: Sander Coleman MD [Primary Care Provider] - Forms: ED Department Discharge Additional Instructions: Take the Lasix 40 mg twice a day start tomorrow, please follow-up with your primary care provider in the next 2-3 days for reevaluation, checking daily weights and reduce your Lasix dose to 40 mg once a day when your weight returns to normal range, please discuss anticoagulation with your primary care provider as well, call return to the emergency department worsening of symptoms - My Orders Last 24 Hours: My Active Orders 11/25/17 13:41 Peripheral IV Care [RC] . DIRECTED Sodium Chloride 0.9% [Saline Flush] 10 ml FLUSH ASDIRECTED PRN Peripheral IV Insertion Adult [OM.PC] Urgent 11/25/17 13:42 EKG Documentation Completion [RC] ASDIRECTED EKG 12 Lead [EK] Stat - Assessment/Plan Last 24 Hours: My Active Orders 11/25/17 13:41 Peripheral IV Care [RC] . DIRECTED Sodium Chloride 0.9% [Saline Flush] 10 ml FLUSH ASDIRECTED PRN Peripheral IV Insertion Adult [OM.PC] Urgent 11/25/17 13:42 EKG Documentation Completion [RC] ASDIRECTED EKG 12 Lead [EK] Stat Plan: Assessment Acuity = acute Site and laterality = exacerbation of diastolic congestive heart failure complicated patient with known paroxysmal atrial fibrillation probably moving to chronic Etiology = unclear etiology Manifestations = dyspnea now improved Location of injury = Home Lab values = hemoglobin low 11.5 consistent normochromic anemia INR normal at 0.97 sodium low at 134 consistent hyponatremia creatinine elevated 1.5 consistent chronic renal failure stage G IIIB troponin was negative BNP elevated at 4009 this is up from 2013 approximately one month ago consistent with fluid overload type pattern albumin low at 3.2 consistent hypoalbuminemia , chads 2 score of 5, EKG demonstrates atrial fibrillation, chest x-ray consistent with cardiomegaly and fluid overload type pattern congestive heart failure Plan I did review lab work with him as well as chest x-ray and EKG he was given 40 mg Lasix IV while in the ED was able to ambulate with out shortness of breath, plan is to continue 40 mg by mouth twice a day and follow-up with primary care in the next 2-3 days for reevaluation will use additional Lasix based upon weight. Discussed with him stroke risk with anticoagulation however he is a high fall risk his family was present there going to discuss this at home and discussed with his primary care provider whether to remain on aspirin or proceed to anticoagulation given his fall risk This note was dictated using [employer] voice recognition software please call with any questions on syntax or grammar.
--- NOTE | 2017-11-25 14:08 | CR ---
CHEST: Portable CLINICAL HISTORY:SOB COMPARISON:07 Nov 2017 FINDINGS: Heart is enlarged. Pulmonary vascularity is mildly cephalized but diminished since prior s tudy. There is blunting of the left costophrenic angle.. There is no significant pulmonary edema IMPRESSION: Cardiomegaly with mild vascular congestion suggests changes of mild CHF. Small left pleural effusion
[2017-11-25 15:22] VITALS: BP 129/65
== END 2017-11-25 16:29 | disposition home or self-care (01) ==
LOC: JP.ED 12:46
DX: I50.9 Heart failure, unspecified (principal); E03.9 Hypothyroidism, unspecified; Z79.899 Other long term (current) drug therapy; Z79.82 Long term (current) use of aspirin
CPT/HCPCS: 36415; 71045; 80053; 83880; 84484; 85025; 85610; 93005; 96374; 99284; J1940; J7050

== ENCOUNTER 2017-12-26 17:55 | Emergency (ER) | payer MEDICARE, BC ==
--- NOTE | 2017-12-26 20:18 | EDM.PDOC ---
ED HPI GENERAL MEDICAL PROBLEM - General Chief Complaint: General Stated Complaint: CHF, WEAKNESS LEGS Time Seen by Provider: 12/26/17 19:45 Source of Information: Reports: Patient, Family History Limitations: Reports: No Limitations - History of Present Illness INITIAL COMMENTS - FREE TEXT/NARRATIVE: Kojo presents today with complaints of generalized weakness. He states he has been feeling very weak today and not able to walk around like he usually does. He reports a history of atrial fibrillation with difficulty finding a medication that works well for him. His states he frequently suffers from low potassium and low sodium. He denies fever, chills, nausea, vomiting, headache, palpitation, chest pain or SOB. - Related Data Allergies Allergy/AdvReac Type Severity Reaction Status Date / Time No Known Allergies Allergy Verified 12/26/17 19:22 Home Meds: Home Meds Gabapentin [Neurontin] 300 mg PO TID 03/14/14 [History] Levothyroxine 112 mcg PO ACBRK 03/14/14 [History] PARoxetine [Paxil] 20 mg PO BEDTIME 03/14/14 [History] Ranitidine [Zantac] 150 mg PO BID 03/14/14 [History] Albuterol Sulfate [Albuterol Sulfate HFA] 2 puff INH Q4H PRN 06/01/14 [History] [place]-3/DHA/Epa/Fish Oil [Fish Oil Dr 500 mg Softgel] 1,000 mg PO DAILY [History] Sulfamethoxazole/Trimethoprim [Bactrim Ds Tablet] 1 tab PO DAILY 06/01/14 [ History] Terazosin [Hytrin] 5 mg PO DAILY 06/01/14 [History] Vitamin B Complex [B Complex] 2 tab PO DAILY 06/01/14 [History] Montelukast [Singulair] 10 mg PO DAILY 10/16/17 [History] Aspirin 325 mg PO DAILY 11/07/17 [History] Metoprolol Tartrate 12.5 mg PO BID 11/07/17 [History] Vitamin E 400 unit PO DAILY 11/07/17 [History] azaTHIOprine [Imuran] 50 mg PO DAILY 11/07/17 [History] predniSONE [Prednisone] 5 mg PO DAILY 11/07/17 [History] Furosemide [Lasix] 40 mg PO BID #60 tablet 11/09/17 [Rx] Potassium Chloride [Klor-Con M20] 20 meq PO DAILY 12/26/17 [History] Past Medical History HEENT History: Reports: Hard of Hearing, Impaired Vision Cardiovascular History: Reports: Afib, Heart Failure, Other (See Below) 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 Respiratory History: Reports: Asthma Genitourinary History: Reports: Prostate Disorder Musculoskeletal History: Reports: Arthritis Endocrine/Metabolic History: Reports: Hypothyroidism Oncologic (Cancer) History: Reports: Squamous Cell Carcinoma Other Oncologic History: skin - Infectious Disease History Infectious Disease History: Reports: Chicken Pox - Past Surgical History HEENT Surgical History: Reports: Cataract Surgery GI Surgical History: Reports: Cholecystectomy Musculoskeletal Surgical History: Reports: Hip Replacement, Other (See Below) Other Musculoskeletal Surgeries/Procedures:: foot drop Social & Family History - Tobacco Use Smoking Status *Q: Never Smoker - Caffeine Use Caffeine Use: Reports: Coffee Other Caffeine Use: 3 cups per day - Recreational Drug Use Recreational Drug Use: No ED ROS GENERAL - Review of Systems Review Of Systems: See Below Constitutional: Reports: Weakness. Denies: Fever, Chills, Malaise HEENT: Reports: No Symptoms Respiratory: Denies: Shortness of Breath, Wheezing, Cough, Sputum, Hemoptysis Cardiovascular: Denies: Chest Pain, Blood Pressure Problem, Dyspnea on Exertion , Edema, Lightheadedness, Palpitations, PND, Syncope Endocrine: Reports: No Symptoms GI/Abdominal: Reports: No Symptoms : Reports: No Symptoms Musculoskeletal: Reports: No Symptoms Skin: Reports: No Symptoms Neurological: Reports: Weakness. Denies: Confusion, Dizziness, Headache, Numbness, Tingling Psychiatric: Reports: No Symptoms Hematologic/Lymphatic: Reports: No Symptoms Immunologic: Reports: No Symptoms ED EXAM, GENERAL - Physical Exam Exam: See Below (Patient has had a large number of family over to his home this past week with increase in daily activity. Outdoor temperatures 80+ degrees with high humidity.) Free Text/Narrative:: Kojo is an alert and oriented 87 year old male presenting with complaints of generalized weakness since this morning. He states he feels unsteady with ambulating. He denies difficulty eating, drinking, voiding or with bowel movements. He states he has been taking his medications as directed. History of atrial fibrillation, control with metoprolol, he does take warfarin. Exam Limited By: No Limitations General Appearance: Alert, WD/WN, No Apparent Distress Eye Exam: Bilateral Eye: EOMI, Normal Inspection, PERRL Ears: Normal External Exam, Normal Canal, Hearing Grossly Normal, Normal TMs Ear Exam: Bilateral Ear: Auricle Normal, Canal Normal, TM normal Nose: Normal Inspection, Normal Mucosa, No Blood Throat/Mouth: Normal Inspection, Normal Lips, Normal Gums, Normal Oropharynx, Normal Voice, No Airway Compromise Head: Atraumatic, Normocephalic Neck: Normal Inspection, Supple, Non-Tender, Full Range of Motion. No: Lymphadenopathy (R), Lymphadenopathy (L) Respiratory/Chest: No Respiratory Distress, Lungs Clear, Normal Breath Sounds, No Accessory Muscle Use, Chest Non-Tender Cardiovascular: Normal Peripheral Pulses, No Edema, No Gallop, No Murmur, Other (Irregular rate and rhythm, noted atrial fibrillation with rate of 65 to 80 BPM) Peripheral Pulses: 2+: Radial (L), Radial (R), Dorsalis Pedis (L), Dorsalis Pedis (R) GI/Abdominal: Normal Bowel Sounds, Soft, Non-Tender, No Organomegaly, No Mass, Distended. No: Guarding, Rebound Back Exam: Normal Inspection, Full Range of Motion. No: CVA Tenderness (R), CVA Tenderness (L) Extremities: Normal Inspection, Normal Range of Motion, Non-Tender, No Pedal Edema, Normal Capillary Refill Neurological: Alert, Oriented, CN II-XII Intact, Normal Cognition, No Motor/ Sensory Deficits Psychiatric: Normal Affect, Normal Mood Skin Exam: Warm, Dry, Intact, Normal Color, No Rash Lymphatic: No Adenopathy EKG INTERPRETATION EKG Date: 12/26/17 Time: 20:19 Rhythm: A-Fib Rate (Beats/Min): 82 QRS: Normal ST-T: Normal QT: Normal Course - Vital Signs Last Recorded V/S: Last Vital Signs Temp 36.1 C 12/26/17 19:18 Pulse 69 12/26/17 21:00 Resp 12 12/26/17 21:00 BP 128/68 12/26/17 21:00 Pulse Ox 95 12/26/17 21:00 - Orders/Labs/Meds Orders: Active Orders 24 hr Category Date Time Status EKG Documentation Completion [RC] ASDIRECTED Care 12/26/17 20:17 Active EKG 12 Lead [EK] Routine Ther 07/13/18 20:16 Ordered Labs: Laboratory Tests 12/26/17 12/26/17 12/26/17 Range/Units 20:16 20:16 20:16 WBC 7.0 (4.5-11.0) K/uL RBC 3.86 L (4.30-5.90) M/uL Hgb 12.2 (12.0-15.0) g/dL Hct 35.2 L (40.0-54.0) % MCV 91 (80-98) fL MCH 32 H (27-31) pg MCHC 35 (32-36) % Plt Count 184 (150-400) K/uL Neut % (Auto) 64 (36-66) % Lymph % (Auto) 23 L (24-44) % [place] % (Auto) 12 H (2-6) % Eos % (Auto) 2 (2-4) % Baso % (Auto) 0 (0-1) % PT 19.5 H (9.5-12.0) sec INR 1.83 H (0.80-1.20) APTT 37.1 H (27.0-36.0) sec Sodium 128 L (140-148) mmol/L Potassium 4.9 (3.6-5.2) mmol/L Chloride 90 L (100-108) mmol/L Carbon Dioxide 29 (21-32) mmol/L Anion Gap 13.9 (5.0-14.0) mmol/L BUN 25 H (7-18) mg/dL Creatinine 1.7 H (0.8-1.3) mg/dL Est Cr Clr Drug Dosing 28.08 mL/min Estimated GFR (MDRD) 38 L (>60) Glucose 123 H (74-106) mg/dL Calcium 8.9 (8.5-10.1) mg/dL Magnesium 2.2 (1.8-2.4) mg/dL Lab work reviewed, noted hyponatremia and renal function. Patient will be discharged to home with follow up on Friday. Patient lab work reviewed with Dr. Fonseca, he is in agreement with plan to discharge patient with followup. Patient lab work, EKG, vital signs reviewed with patient and his family, they are in agreement with plan. Departure - Departure Time of Disposition: 21:15 Disposition: Home, Self-Care 01 Condition: Fair Clinical Impression: Hyponatremia, Weakness, Chronic atrial fibrillation - Discharge Information Instructions: Hyponatremia, [id number], Fatigue Referrals: Sander Coleman MD [Primary Care Provider] - Forms: ED Department Discharge Additional Instructions: You have been evaluated and treated in the emergency room for weakness. Your EKG shows atrial fibrillation at a controlled rate between 65 and 85 beats per minute. Continue your current medications as they are ordered. You may drink on 16 to 20 oz bottle of gatorade a day to help with your low sodium level. Keep yourself hydrated with our recent hot outdoor temperatures and humidity. Follow up with Dr. Coleman on Friday for a recheck of status and sodium. It would be appropriate for nephrology and cardiology follow ups as well due to history of renal function and atrial fibrillation. Return to the emergency room for any worsening, issues or concerns. - My Orders Last 24 Hours: My Active Orders 12/26/17 20:16 EKG 12 Lead [EK] Routine 12/26/17 20:17 EKG Documentation Completion [RC] ASDIRECTED - Assessment/Plan Last 24 Hours: My Active Orders 12/26/17 20:16 EKG 12 Lead [EK] Routine 12/26/17 20:17 EKG Documentation Completion [RC] ASDIRECTED Assessment:: Hyponatremia, Weakness, Chronic atrial fibrillation - rate controlled. Plan: Patient evaluated and treated in the emergency room for weakness. EKG shows atrial fibrillation at a controlled rate between 65 and 85 beats per minute. Continue current medications as ordered. Patient may drink on 16 to 20 oz bottle of gatorade a day to help with low sodium level. Keep hydrated with our recent hot outdoor temperatures and humidity. Follow up with Dr. Coleman on Friday for a recheck of status and sodium. It would be appropriate for nephrology and cardiology follow ups as well due to history of renal function and atrial fibrillation. Return to the emergency room for any worsening, issues or concerns.
[2017-12-26 22:10] VITALS: BP 128/68
== END 2017-12-26 22:12 | disposition home or self-care (01) ==
LOC: JP.ED 17:55
DX: R53.1 Weakness (principal); I50.9 Heart failure, unspecified; J45.909 Unspecified asthma, uncomplicated; E87.1 Hypo-osmolality and hyponatremia; I48.91 Unspecified atrial fibrillation; Z79.899 Other long term (current) drug therapy; Z79.82 Long term (current) use of aspirin
CPT/HCPCS: 36415; 80048; 83735; 85025; 85610; 85730; 93005; 99284-25

== ENCOUNTER 2018-03-03 16:00 | Inpatient (IN) | payer MEDICARE, BC ==
[2018-03-03] MEDS ORDERED: Lactated Ringers 1,000 ML IV SCH ×2 (16:30→22:30)
[2018-03-03] MEDS ORDERED: Piperacillin/Tazobactam 4.5 GM in Sodium Chloride 0.9% 100 ML IV SCH (16:30)
--- NOTE | 2018-03-03 16:36 | EDM.PDOC ---
ED HPI GENERAL MEDICAL PROBLEM - General Chief Complaint: General Stated Complaint: SLEEPING AND WEAK Time Seen by Provider: 03/03/18 16:21 Source of Information: Reports: Patient, EMS, RN Notes Reviewed History Limitations: Reports: No Limitations - History of Present Illness INITIAL COMMENTS - FREE TEXT/NARRATIVE: 87-year-old gentleman presents to the emergency department via EMS services, EMS services were called by family members because of his increased lethargy and complaint of shortness of breath. He has a known history of paroxysmal atrial fibrillation, severe aortic stenosis with history of systolic congestive heart failure as well as asthma. He denies any other symptoms at this time - Related Data Allergies Allergy/AdvReac Type Severity Reaction Status Date / Time No Known Allergies Allergy Verified 03/03/18 16:08 Home Meds: Home Meds Gabapentin [Neurontin] 300 mg PO TID 03/14/14 [History] Levothyroxine 112 mcg PO ACBRK 03/14/14 [History] PARoxetine [Paxil] 20 mg PO BEDTIME 03/14/14 [History] Ranitidine [Zantac] 150 mg PO BID 03/14/14 [History] Albuterol Sulfate [Albuterol Sulfate HFA] 2 puff INH Q4H PRN 06/01/14 [History] [place]-3/DHA/Epa/Fish Oil [Fish Oil Dr 500 mg Softgel] 1,000 mg PO DAILY [History] Sulfamethoxazole/Trimethoprim [Bactrim Ds Tablet] 1 tab PO DAILY 06/01/14 [ History] Terazosin [Hytrin] 5 mg PO DAILY 06/01/14 [History] Vitamin B Complex [B Complex] 2 tab PO DAILY 06/01/14 [History] Montelukast [Singulair] 10 mg PO DAILY 10/16/17 [History] Aspirin 325 mg PO DAILY 11/07/17 [History] Metoprolol Tartrate 12.5 mg PO BID 11/07/17 [History] Vitamin E 400 unit PO DAILY 11/07/17 [History] azaTHIOprine [Imuran] 50 mg PO DAILY 11/07/17 [History] predniSONE [Prednisone] 5 mg PO DAILY 11/07/17 [History] Furosemide [Lasix] 40 mg PO BID #60 tablet 11/09/17 [Rx] Potassium Chloride [Klor-Con M20] 20 meq PO DAILY 12/26/17 [History] Past Medical History HEENT History: Reports: Hard of Hearing, Impaired Vision Cardiovascular History: Reports: Afib, Heart Failure, Other (See Below) 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 Respiratory History: Reports: Asthma Genitourinary History: Reports: Prostate Disorder Musculoskeletal History: Reports: Arthritis Endocrine/Metabolic History: Reports: Hypothyroidism Oncologic (Cancer) History: Reports: Squamous Cell Carcinoma Other Oncologic History: skin - Infectious Disease History Infectious Disease History: Reports: Chicken Pox - Past Surgical History Head Surgeries/Procedures: Reports: None HEENT Surgical History: Reports: Cataract Surgery Cardiovascular Surgical History: Reports: None GI Surgical History: Reports: Cholecystectomy Endocrine Surgical History: Reports: None Musculoskeletal Surgical History: Reports: Hip Replacement, Other (See Below) Other Musculoskeletal Surgeries/Procedures:: foot drop Social & Family History - Tobacco Use Smoking Status *Q: Never Smoker Second Hand Smoke Exposure: No - Caffeine Use Caffeine Use: Reports: Coffee Other Caffeine Use: 3 cups per day - Recreational Drug Use Recreational Drug Use: No ED ROS GENERAL - Review of Systems Review Of Systems: See Below Constitutional: Reports: Weakness, Fatigue. Denies: Fever HEENT: Reports: No Symptoms Respiratory: Reports: Shortness of Breath, Cough. Denies: Sputum Cardiovascular: Reports: No Symptoms GI/Abdominal: Reports: No Symptoms : Reports: No Symptoms Musculoskeletal: Reports: No Symptoms Skin: Reports: No Symptoms Neurological: Reports: No Symptoms ED EXAM, GENERAL - Physical Exam Exam: See Below Free Text/Narrative:: General: Elderly male, not in any distress, alert HEENT: head is atraumatic normocephalic, eyes pupils equal round reactive to light, sclera clear no conjunctivitis appreciated. Ears tympanic membranes clear and ziegler landmarks and light reflex are present bilaterally canals are clear. Nose no septal deviation, nares are clear, no blood present. Mouth mucosa is dry and pink no erythema or exudate noted in soft palate, tongue is midline uvula is midline, dentition is intact. Neck: Supple no thyromegaly no tracheal deviation. Nodes: Cervical nodes subclavicular nodes nontender no palpable lymphadenopathy noted. Lungs: Crackles mid to lower lung anderson bilaterally CV: Irregularly irregular rate and rhythm S1 and S2 appreciated systolic murmur appreciated. Abdomen: Soft, nontender, no palpable masses or organomegaly appreciated, no distention no guarding bowel sounds are present, . Neuro: Cranial nerves II through XII grossly intact Skin: Warm and dry, intact Extremities: No lower extremity edema appreciated, pedal pulse is +2. Course - Vital Signs Last Recorded V/S: Last Vital Signs Temp 98.6 F 03/03/18 16:15 Pulse 102 H 03/03/18 16:28 Resp 20 03/03/18 16:28 BP 92/59 L 03/03/18 16:28 Pulse Ox 96 03/03/18 16:28 - Orders/Labs/Meds Orders: Active Orders 24 hr Category Date Time Status EKG Documentation Completion [RC] ASDIRECTED Care 03/03/18 16:35 Active Vital Signs [RC] Q1H Care 03/03/18 16:27 Active Chest 1V Frontal [CR] Urgent Exams 03/03/18 16:28 Taken CULTURE BLOOD [BC] Urgent Lab 03/03/18 16:30 Received CULTURE BLOOD [BC] Urgent Lab 03/03/18 16:40 Received Lactated Ringers [Ringers, Lactated] 1,000 ml Med 03/03/18 16:30 Active IV ASDIRECTED Blood Culture x2 Reflex Set [OM.PC] Urgent Oth 03/03/18 16:27 Ordered EKG 12 Lead [EK] Stat Ther 03/03/18 16:34 Ordered Medication Orders Lactated Ringer's (Ringers, Lactated) 1,000 mls @ 500 mls/hr IV ASDIRECTED EDIL Last Admin: 03/03/18 16:33 Dose: 500 mls/hr Labs: Laboratory Tests 03/03/18 03/03/18 03/03/18 Range/Units 16:29 16:30 16:30 WBC 14.7 H (4.5-11.0) K/uL RBC 3.67 L (4.30-5.90) M/uL Hgb 11.8 L (12.0-15.0) g/dL Hct 34.8 L (40.0-54.0) % MCV 95 (80-98) fL MCH 32 H (27-31) pg MCHC 34 (32-36) % Plt Count 153 (150-400) K/uL Neut % (Auto) 85 H (36-66) % Lymph % (Auto) 8 L (24-44) % [place] % (Auto) 7 H (2-6) % Eos % (Auto) 0 L (2-4) % Baso % (Auto) 0 (0-1) % Puncture Site Rt radial ABG pH 7.363 (7.350-7.450) ABG pCO2 32.0 L (35.0-42.0) mmHg ABG pO2 81.3 (75.0-100.0) mmHg ABG HCO3 17.8 L (22.0-26.0) mmol/L ABG Total CO2 16.3 L (23.0-27.0) mmol/L ABG O2 Saturation 93.5 L (95.0-98.0) % ABG O2 Content 15.2 (15.0-23.0) %vol ABG Base Excess -6.3 mm/L ABG Hemoglobin 11.6 L (13.5-18.0) g/dL ABG Oxyhemoglobin 92.8 % ABG Carboxyhemoglobin 0.0 (0.0-1.6) % ABG Methemoglobin 0.7 % [place] Test Passed O2 Delivery Device Nasal cannula Oxygen Flow Rate 2 L Sodium 131 L (140-148) mmol/L Potassium 5.4 H (3.6-5.2) mmol/L Chloride 99 L (100-108) mmol/L Carbon Dioxide 22 (21-32) mmol/L Anion Gap 15.4 H (5.0-14.0) mmol/L BUN 45 H D (7-18) mg/dL Creatinine 2.6 H D (0.8-1.3) mg/dL Est Cr Clr Drug Dosing 18.36 mL/min Estimated GFR (MDRD) 23 L (>60) Glucose 122 H (74-106) mg/dL Lactic Acid (0.4-2.0) mmol/L Calcium 8.3 L (8.5-10.1) mg/dL Total Bilirubin 0.8 D (0.2-1.0) mg/dL AST 22 (15-37) U/L ALT 20 (12-78) U/L Alkaline Phosphatase 35 L (46-116) U/L Troponin I (0.000-0.056) ng/mL C-Reactive Protein 6.51 H (0.0-0.3) mg/dL Total Protein 6.0 L (6.4-8.2) g/dL Albumin 3.0 L (3.4-5.0) g/dL Globulin 3.0 (2.3-3.5) g/dL Albumin/Globulin Ratio 1.0 L (1.2-2.2) Urine Color Urine Appearance Urine pH (4.5-8.0) Ur Specific [place] (1.008-1.030) Urine Protein (NEGATIVE) mg/dL Urine Glucose (UA) (NEGATIVE) mg/dL Urine Ketones (NEGATIVE) mg/dL Urine Occult Blood (NEGATIVE) Urine Nitrite (NEGAITVE) Urine Bilirubin (NEGATIVE) Urine Urobilinogen (NORMAL) mg/dL Ur Leukocyte Esterase (NEGATIVE) Urine RBC (0-5) Urine WBC (0-5) Ur Epithelial Cells Amorphous Sediment Urine Bacteria Urine Mucus 03/03/18 03/03/18 03/03/18 Range/Units 16:30 16:30 17:12 WBC (4.5-11.0) K/uL RBC (4.30-5.90) M/uL Hgb (12.0-15.0) g/dL Hct (40.0-54.0) % MCV (80-98) fL MCH (27-31) pg MCHC (32-36) % Plt Count (150-400) K/uL Neut % (Auto) (36-66) % Lymph % (Auto) (24-44) % [place] % (Auto) (2-6) % Eos % (Auto) (2-4) % Baso % (Auto) (0-1) % Puncture Site ABG pH (7.350-7.450) ABG pCO2 (35.0-42.0) mmHg ABG pO2 (75.0-100.0) mmHg ABG HCO3 (22.0-26.0) mmol/L ABG Total CO2 (23.0-27.0) mmol/L ABG O2 Saturation (95.0-98.0) % ABG O2 Content (15.0-23.0) %vol ABG Base Excess mm/L ABG Hemoglobin (13.5-18.0) g/dL ABG Oxyhemoglobin % ABG Carboxyhemoglobin (0.0-1.6) % ABG Methemoglobin % [place] Test O2 Delivery Device Oxygen Flow Rate L Sodium (140-148) mmol/L Potassium (3.6-5.2) mmol/L Chloride (100-108) mmol/L Carbon Dioxide (21-32) mmol/L Anion Gap (5.0-14.0) mmol/L BUN (7-18) mg/dL Creatinine (0.8-1.3) mg/dL Est Cr Clr Drug Dosing mL/min Estimated GFR (MDRD) (>60) Glucose (74-106) mg/dL Lactic Acid 3.2 H (0.4-2.0) mmol/L Calcium (8.5-10.1) mg/dL Total Bilirubin (0.2-1.0) mg/dL AST (15-37) U/L ALT (12-78) U/L Alkaline Phosphatase (46-116) U/L Troponin I 0.038 (0.000-0.056) ng/mL C-Reactive Protein (0.0-0.3) mg/dL Total Protein (6.4-8.2) g/dL Albumin (3.4-5.0) g/dL Globulin (2.3-3.5) g/dL Albumin/Globulin Ratio (1.2-2.2) Urine Color [place] Urine Appearance Clear Urine pH 5.0 (4.5-8.0) Ur Specific [place] 1.015 (1.008-1.030) Urine Protein Negative (NEGATIVE) mg/dL Urine Glucose (UA) Normal (NEGATIVE) mg/dL Urine Ketones Negative (NEGATIVE) mg/dL Urine Occult Blood Negative (NEGATIVE) Urine Nitrite Negative (NEGAITVE) Urine Bilirubin Negative (NEGATIVE) Urine Urobilinogen Normal (NORMAL) mg/dL Ur Leukocyte Esterase Negative (NEGATIVE) Urine RBC Not seen (0-5) Urine WBC Not seen (0-5) Ur Epithelial Cells Not seen Amorphous Sediment Few Urine Bacteria Not seen Urine Mucus Not seen Meds: Medications Generic Name Dose Route Start Last Admin Trade Name Freq PRN Reason Stop Dose Admin Lactated Ringer's 1,000 mls @ 500 mls/hr 03/03/18 16:30 03/03/18 16:33 Ringers, Lactated IV 500 mls/hr ASDIRECTED EDIL Administration Discontinued Medications Generic Name Dose Route Start Last Admin Trade Name Freq PRN Reason Stop Dose Admin Piperacillin Sod/Tazobactam 100 mls @ 200 mls/hr 03/03/18 16:30 Sod 4.5 gm/ Sodium Chloride IV Q6H EDIL Piperacillin/Tazobactam/ 100 mls @ 200 mls/hr 03/03/18 17:00 03/03/18 16:57 Dextrose 4.5 gm/ Premix IV 03/03/18 17:30 200 mls/hr Q6H EDIL Administration Departure - Departure Time of Disposition: 17:57 Disposition: Admitted As Inpatient 65 Condition: Fair Clinical Impression: Sepsis Qualifiers: Sepsis type: sepsis due to unspecified organism Qualified Code(s): A41.9 - Sepsis, unspecified organism - Discharge Information Referrals: Sander Coleman MD [Primary Care Provider] - Forms: ED Department Discharge - My Orders Last 24 Hours: My Active Orders 03/03/18 16:27 Vital Signs [RC] Q1H Blood Culture x2 Reflex Set [OM.PC] Urgent 03/03/18 16:28 Chest 1V Frontal [CR] Urgent 03/03/18 16:30 CULTURE BLOOD [BC] Urgent Lactated Ringers [Ringers, Lactated] 1,000 ml IV ASDIRECTED 03/03/18 16:34 EKG 12 Lead [EK] Stat 03/03/18 16:35 EKG Documentation Completion [RC] ASDIRECTED 03/03/18 16:40 CULTURE BLOOD [BC] Urgent - Assessment/Plan Last 24 Hours: My Active Orders 03/03/18 16:27 Vital Signs [RC] Q1H Blood Culture x2 Reflex Set [OM.PC] Urgent 03/03/18 16:28 Chest 1V Frontal [CR] Urgent 03/03/18 16:30 CULTURE BLOOD [BC] Urgent Lactated Ringers [Ringers, Lactated] 1,000 ml IV ASDIRECTED 03/03/18 16:34 EKG 12 Lead [EK] Stat 03/03/18 16:35 EKG Documentation Completion [RC] ASDIRECTED 03/03/18 16:40 CULTURE BLOOD [BC] Urgent Plan: Assessment Acuity = acute Site and laterality = sepsis, came patient with history of severe aortic stenosis, history of congestive heart failure as well as asthma Etiology = suspicious for bacterial source pulmonary Manifestations = hypoxic, lethargic, hypotensive Location of injury = Home Lab values = WBC elevated 40.7 consistent leukocytosis, hemoglobin low 11.8 consistent normochromic anemia pH reveals 7.36 bicarbonate is 17.8 and a PCO2 of 32 consistent with metabolic acidosis CRP elevated 6.51 and lactic acid elevated at 3.2 consistent lactic acidosis troponin mildly elevated 0.038 but still within the normal range, sodium low at 131 consistent hyponatremia potassium elevated at 5.4 consistent with hyperkalemia creatinine elevated 2.6 consistent acute renal for stage G4, chest x-ray reveals infiltrative process left lower lobe EKG demonstrates atrial fibrillation official read radiology is pending Plan Called discussed case with hospitalist scale reclamation tender he agreed to come and evaluate patient emergency department blood cultures have been drawn, and a box of Zosyn initiated, 1 L of fluids also initiated This note was dictated using xiao qu wu you voice recognition software please call with any questions on syntax or grammar.
[2018-03-03] MEDS ORDERED: Piperacillin/Tazobactam/Dext 4.5 GM in Premix Bag 1 BAG IV SCH (17:00)
--- NOTE | 2018-03-03 18:38 | PCM.HP ---
H&P History of Present Illness - General Date of Service: 03/03/18 Admit Problem/Dx: Admission Diagnosis/Problem Admission Diagnosis/Problem Pneumonia Source of Information: Family, Old Records, Provider, RN Notes Reviewed History Limitations: Reports: Altered Mental Status (Decreased level of consciousness) - History of Present Illness Initial Comments - Free Text/Narative: Mr. Callaway is an 87-year-old gentleman who was admitted through the emergency department with weakness and lethargy, secondary to pneumonia and sepsis. Symptoms started mainly this morning and he spent most of the day in bed sleeping. He was brought into the emergency department for further evaluation, chest x-ray suggests a left lung infiltrate. White blood cell count is elevated and he is found to have an elevation in lactic acid level as well. Blood pressure is been borderline low and he is been mildly tachycardic. Kidney function is decreased when compared to baseline. Patient is unable to provide significant history concerning recent symptoms or review of systems because of his lethargy and decreased level of consciousness. - Related Data Allergies/Adverse Reactions: Allergies Allergy/AdvReac Type Severity Reaction Status Date / Time No Known Allergies Allergy Verified 03/03/18 16:08 Home Medications: Home Meds Gabapentin [Neurontin] 300 mg PO TID 03/14/14 [History] Levothyroxine 112 mcg PO ACBRK 03/14/14 [History] PARoxetine [Paxil] 20 mg PO BEDTIME 03/14/14 [History] Ranitidine [Zantac] 150 mg PO BID 03/14/14 [History] Albuterol Sulfate [Albuterol Sulfate HFA] 2 puff INH Q4H PRN 06/01/14 [History] [place]-3/DHA/Epa/Fish Oil [Fish Oil Dr 500 mg Softgel] 1,000 mg PO DAILY [History] Sulfamethoxazole/Trimethoprim [Bactrim Ds Tablet] 1 tab PO DAILY 06/01/14 [ History] Terazosin [Hytrin] 5 mg PO DAILY 06/01/14 [History] Vitamin B Complex [B Complex] 2 tab PO DAILY 06/01/14 [History] Montelukast [Singulair] 10 mg PO DAILY 10/16/17 [History] Aspirin 325 mg PO DAILY 11/07/17 [History] Metoprolol Tartrate 12.5 mg PO BID 11/07/17 [History] Vitamin E 400 unit PO DAILY 11/07/17 [History] azaTHIOprine [Imuran] 50 mg PO DAILY 11/07/17 [History] predniSONE [Prednisone] 5 mg PO DAILY 11/07/17 [History] Furosemide [Lasix] 40 mg PO BID #60 tablet 11/09/17 [Rx] Potassium Chloride [Klor-Con M20] 20 meq PO DAILY 12/26/17 [History] Past Medical History HEENT History: Reports: Hard of Hearing, Impaired Vision Cardiovascular History: Reports: Afib, Heart Failure, Other (See Below) 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 Respiratory History: Reports: Asthma Gastrointestinal History: Reports: None Genitourinary History: Reports: Prostate Disorder Musculoskeletal History: Reports: Arthritis Endocrine/Metabolic History: Reports: Hypothyroidism Oncologic (Cancer) History: Reports: Squamous Cell Carcinoma Other Oncologic History: skin - Infectious Disease History Infectious Disease History: Reports: Chicken Pox - Past Surgical History Head Surgeries/Procedures: Reports: None HEENT Surgical History: Reports: Cataract Surgery Cardiovascular Surgical History: Reports: None GI Surgical History: Reports: Cholecystectomy Endocrine Surgical History: Reports: None Musculoskeletal Surgical History: Reports: Hip Replacement, Other (See Below) Other Musculoskeletal Surgeries/Procedures:: foot drop Social & Family History - Tobacco Use Smoking Status *Q: Never Smoker Second Hand Smoke Exposure: No - Caffeine Use Caffeine Use: Reports: Coffee Other Caffeine Use: 3 cups per day - Recreational Drug Use Recreational Drug Use: No H&P Review of Systems - Review of Systems: Review Of Systems: Unable To Obtain General: Reports: ROS unobtainable (Decreased level of consciousness) Exam - Exam Exam: See Below - Vital Signs Vital Signs: Last Vital Signs Temp 98.6 F 03/03/18 16:15 Pulse 89 03/03/18 18:24 Resp 13 03/03/18 18:24 BP 86/44 L 03/03/18 18:24 Pulse Ox 92 L 03/03/18 18:24 Weight: 180 lb - Exam Quality Assessment: Supplemental Oxygen, DVT Prophylaxis General: Lethargic HEENT: Conjunctiva Clear, Normal Nasal Septum, Posterior Pharynx Clear, Pupils Equal. No: Hearing Intact, Mucosa Moist & [place] Neck: Supple, Trachea Midline, +2 Carotid Pulse wo Bruit Lungs: Normal Respiratory Effort, Decreased Breath Sounds. No: Crackles, Rales , Rhonchi, Wheezing Cardiovascular: Normal S1, Normal S2, Irregular Rhythm, Tachycardia, Systolic Murmur. No: Diastolic Murmur GI/Abdominal Exam: Soft, Non-Tender, No Organomegaly, No Distention Back Exam: Normal Inspection, Full Range of Motion Extremities: Non-Tender, No Pedal Edema Skin: Warm, Dry, Ecchymosis. No: Rash - Patient Data Lab Results Last 24 hrs: Laboratory Results - last 24 hr 03/03/18 03/03/18 03/03/18 Range/Units 16:29 16:30 16:30 WBC 14.7 H (4.5-11.0) K/uL RBC 3.67 L (4.30-5.90) M/uL Hgb 11.8 L (12.0-15.0) g/dL Hct 34.8 L (40.0-54.0) % MCV 95 (80-98) fL MCH 32 H (27-31) pg MCHC 34 (32-36) % Plt Count 153 (150-400) K/uL Neut % (Auto) 85 H (36-66) % Lymph % (Auto) 8 L (24-44) % [place] % (Auto) 7 H (2-6) % Eos % (Auto) 0 L (2-4) % Baso % (Auto) 0 (0-1) % Puncture Site Rt radial ABG pH 7.363 (7.350-7.450) ABG pCO2 32.0 L (35.0-42.0) mmHg ABG pO2 81.3 (75.0-100.0) mmHg ABG HCO3 17.8 L (22.0-26.0) mmol/L ABG Total CO2 16.3 L (23.0-27.0) mmol/L ABG O2 Saturation 93.5 L (95.0-98.0) % ABG O2 Content 15.2 (15.0-23.0) %vol ABG Base Excess -6.3 mm/L ABG Hemoglobin 11.6 L (13.5-18.0) g/dL ABG Oxyhemoglobin 92.8 % ABG Carboxyhemoglobin 0.0 (0.0-1.6) % ABG Methemoglobin 0.7 % [place] Test Passed O2 Delivery Device Nasal cannula Oxygen Flow Rate 2 L Sodium 131 L (140-148) mmol/L Potassium 5.4 H (3.6-5.2) mmol/L Chloride 99 L (100-108) mmol/L Carbon Dioxide 22 (21-32) mmol/L Anion Gap 15.4 H (5.0-14.0) mmol/L BUN 45 H D (7-18) mg/dL Creatinine 2.6 H D (0.8-1.3) mg/dL Est Cr Clr Drug Dosing 18.36 mL/min Estimated GFR (MDRD) 23 L (>60) Glucose 122 H (74-106) mg/dL Lactic Acid (0.4-2.0) mmol/L Calcium 8.3 L (8.5-10.1) mg/dL Total Bilirubin 0.8 D (0.2-1.0) mg/dL AST 22 (15-37) U/L ALT 20 (12-78) U/L Alkaline Phosphatase 35 L (46-116) U/L Troponin I (0.000-0.056) ng/mL C-Reactive Protein 6.51 H (0.0-0.3) mg/dL Total Protein 6.0 L (6.4-8.2) g/dL Albumin 3.0 L (3.4-5.0) g/dL Globulin 3.0 (2.3-3.5) g/dL Albumin/Globulin Ratio 1.0 L (1.2-2.2) Urine Color Urine Appearance Urine pH (4.5-8.0) Ur Specific [place] (1.008-1.030) Urine Protein (NEGATIVE) mg/dL Urine Glucose (UA) (NEGATIVE) mg/dL Urine Ketones (NEGATIVE) mg/dL Urine Occult Blood (NEGATIVE) Urine Nitrite (NEGAITVE) Urine Bilirubin (NEGATIVE) Urine Urobilinogen (NORMAL) mg/dL Ur Leukocyte Esterase (NEGATIVE) Urine RBC (0-5) Urine WBC (0-5) Ur Epithelial Cells Amorphous Sediment Urine Bacteria Urine Mucus 03/03/18 03/03/18 03/03/18 Range/Units 16:30 16:30 17:12 WBC (4.5-11.0) K/uL RBC (4.30-5.90) M/uL Hgb (12.0-15.0) g/dL Hct (40.0-54.0) % MCV (80-98) fL MCH (27-31) pg MCHC (32-36) % Plt Count (150-400) K/uL Neut % (Auto) (36-66) % Lymph % (Auto) (24-44) % [place] % (Auto) (2-6) % Eos % (Auto) (2-4) % Baso % (Auto) (0-1) % Puncture Site ABG pH (7.350-7.450) ABG pCO2 (35.0-42.0) mmHg ABG pO2 (75.0-100.0) mmHg ABG HCO3 (22.0-26.0) mmol/L ABG Total CO2 (23.0-27.0) mmol/L ABG O2 Saturation (95.0-98.0) % ABG O2 Content (15.0-23.0) %vol ABG Base Excess mm/L ABG Hemoglobin (13.5-18.0) g/dL ABG Oxyhemoglobin % ABG Carboxyhemoglobin (0.0-1.6) % ABG Methemoglobin % [place] Test O2 Delivery Device Oxygen Flow Rate L Sodium (140-148) mmol/L Potassium (3.6-5.2) mmol/L Chloride (100-108) mmol/L Carbon Dioxide (21-32) mmol/L Anion Gap (5.0-14.0) mmol/L BUN (7-18) mg/dL Creatinine (0.8-1.3) mg/dL Est Cr Clr Drug Dosing mL/min Estimated GFR (MDRD) (>60) Glucose (74-106) mg/dL Lactic Acid 3.2 H (0.4-2.0) mmol/L Calcium (8.5-10.1) mg/dL Total Bilirubin (0.2-1.0) mg/dL AST (15-37) U/L ALT (12-78) U/L Alkaline Phosphatase (46-116) U/L Troponin I 0.038 (0.000-0.056) ng/mL C-Reactive Protein (0.0-0.3) mg/dL Total Protein (6.4-8.2) g/dL Albumin (3.4-5.0) g/dL Globulin (2.3-3.5) g/dL Albumin/Globulin Ratio (1.2-2.2) Urine Color [place] Urine Appearance Clear Urine pH 5.0 (4.5-8.0) Ur Specific [place] 1.015 (1.008-1.030) Urine Protein Negative (NEGATIVE) mg/dL Urine Glucose (UA) Normal (NEGATIVE) mg/dL Urine Ketones Negative (NEGATIVE) mg/dL Urine Occult Blood Negative (NEGATIVE) Urine Nitrite Negative (NEGAITVE) Urine Bilirubin Negative (NEGATIVE) Urine Urobilinogen Normal (NORMAL) mg/dL Ur Leukocyte Esterase Negative (NEGATIVE) Urine RBC Not seen (0-5) Urine WBC Not seen (0-5) Ur Epithelial Cells Not seen Amorphous Sediment Few Urine Bacteria Not seen Urine Mucus Not seen Result Diagrams: 03/03/18 16:30 03/03/18 16:30 *Q Meaningful Use (ADM) - VTE Risk Assess *Q Each Risk Factor Represents 1 Point: Obesity ( BMI > 25 kg/m2), Congestive heart failure (CHF), Abnormal Pulmonary Function (COPD) Total Score 1 Point Risk Factors: 3 Each Risk Factor Represents 2 Points: None Total Score 2 Point Risk Factors: 0 Each Risk Factor Represents 3 Points: Age 75 Years or Greater Total Score 3 Point Risk Factors: 3 Each Risk Factor Represents 5 Points: None Total Score 5 Point Risk Factors: 0 Venous Thromboembolism Risk Factor Score *Q: 6 Problem List Initiated/Reviewed/Updated: Yes Orders Last 24hrs: Active Orders 24 hr Category Date Time Status Patient Status Manage Transfer [TRANSFER] Routine ADT 03/03/18 18:23 Ordered EKG Documentation Completion [RC] ASDIRECTED Care 03/03/18 16:35 Active Vital Signs [RC] Q1H Care 03/03/18 16:27 Active Chest 1V Frontal [CR] Urgent Exams 03/03/18 16:28 Taken CULTURE BLOOD [BC] Urgent Lab 03/03/18 16:30 Received CULTURE BLOOD [BC] Urgent Lab 03/03/18 16:40 Received Lactated Ringers [Ringers, Lactated] 1,000 ml Med 03/03/18 16:30 Active IV ASDIRECTED Blood Culture x2 Reflex Set [OM.PC] Urgent Oth 03/03/18 16:27 Ordered Resuscitation Status Routine Resus Stat 03/03/18 18:28 Ordered EKG 12 Lead [EK] Stat Ther 03/03/18 16:34 Ordered Medication Orders Lactated Ringer's (Ringers, Lactated) 1,000 mls @ 500 mls/hr IV ASDIRECTED [facility] Last Admin: 03/03/18 16:33 Dose: 500 mls/hr Assessment/Plan Comment:: ASSESSMENT AND PLAN PNEUMONIA WITH SEPSIS-very lethargic today and weak. Evaluation in the emergency department shows evidence of a left lung infiltrate, leukocytosis, borderline hypotension, tachycardia, and elevated lactic acid level. 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 -Vigorous IV fluid replacement per sepsis protocol -Broad-spectrum IV antibiotic therapy because of immune compromise; Zosyn and levofloxacin, doses adjusted for renal insufficiency -Follow-up lactic acid level tonight and again in a.m. ADRENAL INSUFFICIENCY-iatrogenic, secondary to long-term prednisone use -Solu-Cortef 100 mg IV now ACUTE ON CHRONIC RENAL INSUFFICIENCY-at baseline has chronic kidney disease stage III. Current creatinine level is elevated from baseline -IV fluids -Closely monitor urine output and renal function CONGESTIVE HEART FAILURE/AORTIC STENOSIS -Hold diuretic therapy -Continue other CHF medications ATRIAL FIBRILLATION-mildly tachycardic -Cardiac monitoring PALLIATIVE CARE-family reports that he is willing to accept interventions including fluids and antibiotics but does not want further aggressive interventions MAINTENANCE ISSUES -DVT prophylaxis; Lovenox 30 mg subcutaneous daily -GI prophylaxis; not indicated -Madden catheter; not indicated -Nutrition; 2 g sodium diet -Nicotine dependence; not required CODE STATUS-DNR/DNI ADMISSION STATUS-patient will be admitted to inpatient status, expect at least a 2 night hospital stay for evaluation and management of problems as outlined above. At the time of this admission I do not reasonably expected evaluation and management of this problem will require more than a 96 hour hospital stay. DISPOSITION-anticipate discharge to home after the hospital stay. PRIMARY CARE PROVIDER-Dr. Coleman
[2018-03-03] MEDS ORDERED: Polyethylene Glycol 3350 Powder 17 GM Packet PO PRN (18:52)
[2018-03-03] MEDS ORDERED: Hydrocortisone Sodium Succinate 100 MG/2 ML SDV IVPUSH ONE (18:52)
[2018-03-03] MEDS ORDERED: Ondansetron 4 MG/2 ML SDV IV PRN (18:52)
[2018-03-03] MEDS ORDERED: Sodium Chloride 0.9% 10 ML Syringe FLUSH PRN (18:52)
[2018-03-03] MEDS ORDERED: Acetaminophen 325 MG Tab PO PRN (18:52)
[2018-03-03] MEDS ORDERED: Levofloxacin/Dextrose 5%-Water 750 MG in Premix Bag 1 BAG IV ONE (18:52)
[2018-03-03] MEDS ORDERED: Magnesium Hydroxide 400 MG/5 ML Susp 30 ML Cup PO PRN (18:52)
[2018-03-03] MEDS: Lactated Ringers 1,000 ML IV SCH (19:35)
[2018-03-03] MEDS: Albuterol 0.083% 2.5 MG/3 ML Neb Soln NEB PRN (20:27)
[2018-03-03] MEDS: Gabapentin 300 MG Cap PO SCH (22:40)
[2018-03-03] MEDS: Metoprolol Tartrate 25 MG Tab PO SCH (22:41)
[2018-03-03] MEDS: PARoxetine 20 MG Tab PO SCH (22:41)
[2018-03-04] MEDS: Lactated Ringers 1,000 ML IV SCH ×2 (00:29→08:26)
[2018-03-04] MEDS: Piperacillin/Tazobactam 2.25 GM in Sodium Chloride 0.9% 50 ML IV SCH ×3 (00:30→16:36)
[2018-03-04] MEDS: Albuterol 0.083% 2.5 MG/3 ML Neb Soln NEB PRN ×3 (04:40→20:39)
--- NOTE | 2018-03-04 08:40 | CR ---
CHEST: Portable CLINICAL HISTORY:SOB COMPARISON:11/25/2017 FINDINGS: Heart is enlarged. Pulmonary vascularity is normal. There is patchy density in the right p erihilar region. There is mild prominence of perihilar lung markings bilaterally. There is a small le ft pleural effusion. Impression: Perihilar infiltrates, right greater than left. The this could represent pneumonia but th is may represent some pulmonary edema from CHF which was seen in the past.
[2018-03-04] MEDS: Aspirin 325 MG Tab.EC PO SCH (08:52)
[2018-03-04] MEDS: Potassium Chloride 20 MEQ Tab.ER PO SCH (08:52)
[2018-03-04] MEDS: Terazosin 5 MG Cap PO SCH (08:52)
[2018-03-04] MEDS: predniSONE 5 MG Tab PO SCH (08:52)
[2018-03-04] MEDS: Gabapentin 300 MG Cap PO SCH ×3 (09:00→21:28)
[2018-03-04] MEDS ORDERED: Enoxaparin 30 MG/0.3 ML Syringe SUBCUT SCH (09:00)
[2018-03-04] MEDS: Levothyroxine 112 MCG Tab PO SCH (09:00)
[2018-03-04] MEDS: Metoprolol Tartrate 25 MG Tab PO SCH ×2 (09:01→21:36)
[2018-03-04] MEDS: Sulfamethoxazole/Trimethoprim 800-160 MG Tab PO SCH (09:01)
[2018-03-04] MEDS: Montelukast 10 MG Tab PO SCH (09:01)
--- NOTE | 2018-03-04 15:43 | PCM.PN ---
- General Info Date of Service: 03/04/18 Subjective Update: Mr. Callaway has improved since admission with stabilization of blood pressure and improvement in lactic acid level. He has not had significant temperature elevation and there has been improvement in his white blood cell count as well. He is more alert and interactive this morning and denies significant discomfort. - Review of Systems General: Reports: Weakness. Denies: Fever, Chills Pulmonary: Reports: No Symptoms Cardiovascular: Reports: No Symptoms Gastrointestinal: Reports: No Symptoms - Patient Data Vitals - Most Recent: Last Vital Signs Temp 97.5 F 03/04/18 14:53 Pulse 106 H 03/04/18 14:53 Resp 16 03/04/18 14:53 BP 99/53 L 03/04/18 14:53 Pulse Ox 95 03/04/18 14:53 Weight - Most Recent: 180 lb I&O - Last 24 Hours: Intake & Output 03/04/18 03/04/18 03/04/18 06:59 14:59 22:59 Intake Total 1272 50 Output Total 100 425 Balance 1172 -375 Lab Results Last 24 Hours: Laboratory Results - last 24 hr 03/03/18 03/03/18 03/03/18 Range/Units 16:29 16:30 16:30 WBC 14.7 H (4.5-11.0) K/uL RBC 3.67 L (4.30-5.90) M/uL Hgb 11.8 L (12.0-15.0) g/dL Hct 34.8 L (40.0-54.0) % MCV 95 (80-98) fL MCH 32 H (27-31) pg MCHC 34 (32-36) % Plt Count 153 (150-400) K/uL Neut % (Auto) 85 H (36-66) % Lymph % (Auto) 8 L (24-44) % Boundary % (Auto) 7 H (2-6) % Eos % (Auto) 0 L (2-4) % Baso % (Auto) 0 (0-1) % PT (9.5-12.0) sec INR (0.80-1.20) Puncture Site Rt radial ABG pH 7.363 (7.350-7.450) ABG pCO2 32.0 L (35.0-42.0) mmHg ABG pO2 81.3 (75.0-100.0) mmHg ABG HCO3 17.8 L (22.0-26.0) mmol/L ABG Total CO2 16.3 L (23.0-27.0) mmol/L ABG O2 Saturation 93.5 L (95.0-98.0) % ABG O2 Content 15.2 (15.0-23.0) %vol ABG Base Excess -6.3 mm/L ABG Hemoglobin 11.6 L (13.5-18.0) g/dL ABG Oxyhemoglobin 92.8 % ABG Carboxyhemoglobin 0.0 (0.0-1.6) % ABG Methemoglobin 0.7 % Cruzito Test Passed O2 Delivery Device Nasal cannula Oxygen Flow Rate 2 L Sodium 131 L (140-148) mmol/L Potassium 5.4 H (3.6-5.2) mmol/L Chloride 99 L (100-108) mmol/L Carbon Dioxide 22 (21-32) mmol/L Anion Gap 15.4 H (5.0-14.0) mmol/L BUN 45 H D (7-18) mg/dL Creatinine 2.6 H D (0.8-1.3) mg/dL Est Cr Clr Drug Dosing 18.36 mL/min Estimated GFR (MDRD) 23 L (>60) Glucose 122 H (74-106) mg/dL Lactic Acid (0.4-2.0) mmol/L Calcium 8.3 L (8.5-10.1) mg/dL Magnesium (1.8-2.4) mg/dL Total Bilirubin 0.8 D (0.2-1.0) mg/dL AST 22 (15-37) U/L ALT 20 (12-78) U/L Alkaline Phosphatase 35 L (46-116) U/L Troponin I (0.000-0.056) ng/mL C-Reactive Protein 6.51 H (0.0-0.3) mg/dL Total Protein 6.0 L (6.4-8.2) g/dL Albumin 3.0 L (3.4-5.0) g/dL Globulin 3.0 (2.3-3.5) g/dL Albumin/Globulin Ratio 1.0 L (1.2-2.2) Urine Color Urine Appearance Urine pH (4.5-8.0) Ur Specific [place] (1.008-1.030) Urine Protein (NEGATIVE) mg/dL Urine Glucose (UA) (NEGATIVE) mg/dL Urine Ketones (NEGATIVE) mg/dL Urine Occult Blood (NEGATIVE) Urine Nitrite (NEGAITVE) Urine Bilirubin (NEGATIVE) Urine Urobilinogen (NORMAL) mg/dL Ur Leukocyte Esterase (NEGATIVE) Urine RBC (0-5) Urine WBC (0-5) Ur Epithelial Cells Amorphous Sediment Urine Bacteria Urine Mucus 03/03/18 03/03/18 03/03/18 Range/Units 16:30 16:30 17:12 WBC (4.5-11.0) K/uL RBC (4.30-5.90) M/uL Hgb (12.0-15.0) g/dL Hct (40.0-54.0) % MCV (80-98) fL MCH (27-31) pg MCHC (32-36) % Plt Count (150-400) K/uL Neut % (Auto) (36-66) % Lymph % (Auto) (24-44) % Boundary % (Auto) (2-6) % Eos % (Auto) (2-4) % Baso % (Auto) (0-1) % PT (9.5-12.0) sec INR (0.80-1.20) Puncture Site ABG pH (7.350-7.450) ABG pCO2 (35.0-42.0) mmHg ABG pO2 (75.0-100.0) mmHg ABG HCO3 (22.0-26.0) mmol/L ABG Total CO2 (23.0-27.0) mmol/L ABG O2 Saturation (95.0-98.0) % ABG O2 Content (15.0-23.0) %vol ABG Base Excess mm/L ABG Hemoglobin (13.5-18.0) g/dL ABG Oxyhemoglobin % ABG Carboxyhemoglobin (0.0-1.6) % ABG Methemoglobin % Cruzito Test O2 Delivery Device Oxygen Flow Rate L Sodium (140-148) mmol/L Potassium (3.6-5.2) mmol/L Chloride (100-108) mmol/L Carbon Dioxide (21-32) mmol/L Anion Gap (5.0-14.0) mmol/L BUN (7-18) mg/dL Creatinine (0.8-1.3) mg/dL Est Cr Clr Drug Dosing mL/min Estimated GFR (MDRD) (>60) Glucose (74-106) mg/dL Lactic Acid 3.2 H (0.4-2.0) mmol/L Calcium (8.5-10.1) mg/dL Magnesium (1.8-2.4) mg/dL Total Bilirubin (0.2-1.0) mg/dL AST (15-37) U/L ALT (12-78) U/L Alkaline Phosphatase (46-116) U/L Troponin I 0.038 (0.000-0.056) ng/mL C-Reactive Protein (0.0-0.3) mg/dL Total Protein (6.4-8.2) g/dL Albumin (3.4-5.0) g/dL Globulin (2.3-3.5) g/dL Albumin/Globulin Ratio (1.2-2.2) Urine Color [place] Urine Appearance Clear Urine pH 5.0 (4.5-8.0) Ur Specific [place] 1.015 (1.008-1.030) Urine Protein Negative (NEGATIVE) mg/dL Urine Glucose (UA) Normal (NEGATIVE) mg/dL Urine Ketones Negative (NEGATIVE) mg/dL Urine Occult Blood Negative (NEGATIVE) Urine Nitrite Negative (NEGAITVE) Urine Bilirubin Negative (NEGATIVE) Urine Urobilinogen Normal (NORMAL) mg/dL Ur Leukocyte Esterase Negative (NEGATIVE) Urine RBC Not seen (0-5) Urine WBC Not seen (0-5) Ur Epithelial Cells Not seen Amorphous Sediment Few Urine Bacteria Not seen Urine Mucus Not seen 03/03/18 03/04/18 03/04/18 Range/Units 21:51 06:00 06:00 WBC 11.9 H (4.5-11.0) K/uL RBC 3.18 L (4.30-5.90) M/uL Hgb 10.4 L (12.0-15.0) g/dL Hct 30.0 L (40.0-54.0) % MCV 94 (80-98) fL MCH 33 H (27-31) pg MCHC 35 (32-36) % Plt Count 134 L (150-400) K/uL Neut % (Auto) 89 H (36-66) % Lymph % (Auto) 6 L (24-44) % Boundary % (Auto) 5 (2-6) % Eos % (Auto) 0 L (2-4) % Baso % (Auto) 0 (0-1) % PT (9.5-12.0) sec INR (0.80-1.20) Puncture Site ABG pH (7.350-7.450) ABG pCO2 (35.0-42.0) mmHg ABG pO2 (75.0-100.0) mmHg ABG HCO3 (22.0-26.0) mmol/L ABG Total CO2 (23.0-27.0) mmol/L ABG O2 Saturation (95.0-98.0) % ABG O2 Content (15.0-23.0) %vol ABG Base Excess mm/L ABG Hemoglobin (13.5-18.0) g/dL ABG Oxyhemoglobin % ABG Carboxyhemoglobin (0.0-1.6) % ABG Methemoglobin % Cruzito Test O2 Delivery Device Oxygen Flow Rate L Sodium (140-148) mmol/L Potassium (3.6-5.2) mmol/L Chloride (100-108) mmol/L Carbon Dioxide (21-32) mmol/L Anion Gap (5.0-14.0) mmol/L BUN (7-18) mg/dL Creatinine (0.8-1.3) mg/dL Est Cr Clr Drug Dosing mL/min Estimated GFR (MDRD) (>60) Glucose (74-106) mg/dL Lactic Acid 6.1 H 2.8 H (0.4-2.0) mmol/L Calcium (8.5-10.1) mg/dL Magnesium (1.8-2.4) mg/dL Total Bilirubin (0.2-1.0) mg/dL AST (15-37) U/L ALT (12-78) U/L Alkaline Phosphatase (46-116) U/L Troponin I (0.000-0.056) ng/mL C-Reactive Protein (0.0-0.3) mg/dL Total Protein (6.4-8.2) g/dL Albumin (3.4-5.0) g/dL Globulin (2.3-3.5) g/dL Albumin/Globulin Ratio (1.2-2.2) Urine Color Urine Appearance Urine pH (4.5-8.0) Ur Specific [place] (1.008-1.030) Urine Protein (NEGATIVE) mg/dL Urine Glucose (UA) (NEGATIVE) mg/dL Urine Ketones (NEGATIVE) mg/dL Urine Occult Blood (NEGATIVE) Urine Nitrite (NEGAITVE) Urine Bilirubin (NEGATIVE) Urine Urobilinogen (NORMAL) mg/dL Ur Leukocyte Esterase (NEGATIVE) Urine RBC (0-5) Urine WBC (0-5) Ur Epithelial Cells Amorphous Sediment Urine Bacteria Urine Mucus 03/04/18 03/04/18 Range/Units 06:00 06:00 WBC (4.5-11.0) K/uL RBC (4.30-5.90) M/uL Hgb (12.0-15.0) g/dL Hct (40.0-54.0) % MCV (80-98) fL MCH (27-31) pg MCHC (32-36) % Plt Count (150-400) K/uL Neut % (Auto) (36-66) % Lymph % (Auto) (24-44) % Boundary % (Auto) (2-6) % Eos % (Auto) (2-4) % Baso % (Auto) (0-1) % PT 33.6 H (9.5-12.0) sec INR 3.27 H (0.80-1.20) Puncture Site ABG pH (7.350-7.450) ABG pCO2 (35.0-42.0) mmHg ABG pO2 (75.0-100.0) mmHg ABG HCO3 (22.0-26.0) mmol/L ABG Total CO2 (23.0-27.0) mmol/L ABG O2 Saturation (95.0-98.0) % ABG O2 Content (15.0-23.0) %vol ABG Base Excess mm/L ABG Hemoglobin (13.5-18.0) g/dL ABG Oxyhemoglobin % ABG Carboxyhemoglobin (0.0-1.6) % ABG Methemoglobin % Cruzito Test O2 Delivery Device Oxygen Flow Rate L Sodium 131 L (140-148) mmol/L Potassium 4.9 (3.6-5.2) mmol/L Chloride 99 L (100-108) mmol/L Carbon Dioxide 23 (21-32) mmol/L Anion Gap 13.9 (5.0-14.0) mmol/L BUN 39 H (7-18) mg/dL Creatinine 2.1 H (0.8-1.3) mg/dL Est Cr Clr Drug Dosing 22.73 mL/min Estimated GFR (MDRD) 30 L (>60) Glucose 121 H (74-106) mg/dL Lactic Acid (0.4-2.0) mmol/L Calcium 8.6 (8.5-10.1) mg/dL Magnesium 1.8 (1.8-2.4) mg/dL Total Bilirubin (0.2-1.0) mg/dL AST (15-37) U/L ALT (12-78) U/L Alkaline Phosphatase (46-116) U/L Troponin I (0.000-0.056) ng/mL C-Reactive Protein (0.0-0.3) mg/dL Total Protein (6.4-8.2) g/dL Albumin (3.4-5.0) g/dL Globulin (2.3-3.5) g/dL Albumin/Globulin Ratio (1.2-2.2) Urine Color Urine Appearance Urine pH (4.5-8.0) Ur Specific [place] (1.008-1.030) Urine Protein (NEGATIVE) mg/dL Urine Glucose (UA) (NEGATIVE) mg/dL Urine Ketones (NEGATIVE) mg/dL Urine Occult Blood (NEGATIVE) Urine Nitrite (NEGAITVE) Urine Bilirubin (NEGATIVE) Urine Urobilinogen (NORMAL) mg/dL Ur Leukocyte Esterase (NEGATIVE) Urine RBC (0-5) Urine WBC (0-5) Ur Epithelial Cells Amorphous Sediment Urine Bacteria Urine Mucus Med Orders - Current: Current Medications Acetaminophen (Tylenol) 650 mg PO Q4H PRN PRN Reason: Pain (Mild 1-3)/fever Albuterol (Proventil Neb Soln) 2.5 mg NEB Q4H PRN PRN Reason: Shortness Of Breath/wheezing Last Admin: 03/04/18 04:40 Dose: 2.5 mg Aspirin (Ecotrin) 325 mg PO DAILY [facility] Last Admin: 03/04/18 08:52 Dose: 325 mg Azathioprine (Imuran) 50 mg PO DAILY [facility] Last Admin: 03/04/18 09:00 Dose: 50 mg Furosemide (Lasix) 40 mg PO BID [facility] Gabapentin (Neurontin) 300 mg PO TID [facility] Last Admin: 03/04/18 09:00 Dose: 300 mg Levofloxacin/Dextrose 500 mg/ (Premix) 100 mls @ 100 mls/hr IV Q48H [facility] Piperacillin Sod/Tazobactam (Sod 2.25 gm/ Sodium Chloride) 50 mls @ 100 mls/hr IV Q8H [facility] Last Admin: 03/04/18 09:48 Dose: 100 mls/hr Levothyroxine Sodium (Levothyroxine) 112 mcg PO ACBRK [facility] Last Admin: 03/04/18 09:00 Dose: 112 mcg Magnesium Hydroxide (Milk Of Magnesia) 30 ml PO Q12H PRN PRN Reason: Constipation Metoprolol Tartrate (Lopressor) 12.5 mg PO BID [facility] Last Admin: 03/04/18 09:01 Dose: 12.5 mg Montelukast Sodium (Singulair) 10 mg PO DAILY [facility] Last Admin: 03/04/18 09:01 Dose: 10 mg Ondansetron HCl (Zofran) 4 mg IV Q4H PRN PRN Reason: Nausea/Vomiting Paroxetine HCl (Paxil) 20 mg PO BEDTIME [facility] Last Admin: 03/03/18 22:41 Dose: 20 mg Polyethylene Glycol (Miralax) 17 gm PO DAILY PRN PRN Reason: Constipation Potassium Chloride (Klor-Con M20) 20 meq PO DAILY@0800 [facility] Last Admin: 03/04/18 08:52 Dose: 20 meq Prednisone (Prednisone) 5 mg PO DAILY@0800 [facility] Last Admin: 03/04/18 08:52 Dose: 5 mg Ranitidine HCl (Zantac) 150 mg PO BID [facility] Last Admin: 03/04/18 09:01 Dose: 150 mg Senna/Docusate Sodium (Senna Plus) 1 tab PO BID PRN PRN Reason: Constipation Sodium Chloride (Saline Flush) 10 ml FLUSH ASDIRECTED PRN PRN Reason: Keep Vein Open Spironolactone (Aldactone) 25 mg PO BID [facility] Terazosin HCl (Hytrin) 5 mg PO DAILY [facility] Last Admin: 09/19/18 08:52 Dose: 5 mg Trimethoprim/Sulfamethoxazole (Septra Ds) 1 tab PO DAILY [facility] Last Admin: 03/04/18 09:01 Dose: 1 tab Warfarin Sodium (Coumadin) 2.5 mg PO DAILY@1600 [facility] Discontinued Medications Enoxaparin Sodium (Lovenox) 30 mg SUBCUT DAILY [facility] Hydrocortisone Sodium Succinate (Solu-Cortef) 100 mg IVPUSH ONETIME ONE Stop: 03/03/18 18:53 Last Admin: 03/03/18 20:25 Dose: 100 mg Lactated Ringer's (Ringers, Lactated) 1,000 mls @ 500 mls/hr IV ASDIRECTED [facility] Last Admin: 03/03/18 16:33 Dose: 500 mls/hr Piperacillin Sod/Tazobactam (Sod 4.5 gm/ Sodium Chloride) 100 mls @ 200 mls/hr IV Q6H [facility] Piperacillin/Tazobactam/ (Dextrose 4.5 gm/ Premix) 100 mls @ 200 mls/hr IV Q6H [facility] Stop: 03/03/18 17:30 Last Admin: 03/03/18 16:57 Dose: 200 mls/hr Lactated Ringer's (Ringers, Lactated) 1,000 mls @ 125 mls/hr IV ASDIRECTED [facility] Last Admin: 03/04/18 08:26 Dose: 125 mls/hr Levofloxacin/Dextrose 750 mg/ (Premix) 150 mls @ 100 mls/hr IV ONETIME ONE Stop: 03/03/18 20:21 Last Admin: 03/03/18 20:27 Dose: 100 mls/hr Lactated Ringer's (Ringers, Lactated) 1,000 mls @ 500 mls/hr IV .BOLUS [facility] Stop: 03/03/18 23:31 Last Admin: 03/03/18 22:43 Dose: 500 mls/hr - Exam Quality Assessment: Supplemental Oxygen, DVT Prophylaxis General: Alert, Oriented, Cooperative, Mild Distress Lungs: Clear to Auscultation, Normal Respiratory Effort Cardiovascular: Regular Rate, Regular Rhythm, No Murmurs GI/Abdominal Exam: Soft, Non-Tender, No Organomegaly, No Distention Extremities: Non-Tender, Pedal Edema Skin: Warm, Dry - Problem List Review Problem List Initiated/Reviewed/Updated: Yes - My Orders Last 24 Hours: My Active Orders 03/03/18 18:52 Patient Status [ADT] Routine Ambulate [RC] QID Cardiac Monitoring [RC] .As Directed Height and Weight [RC] DAILY Intake and Output [RC] QSHIFT Notify Provider Vital Signs [RC] ASDIRECTED Oxygen Therapy [RC] PRN Peripheral IV Care [RC] Q12H Pulse Oximetry [RC] CONTINUOUS RT Aerosol Therapy [RC] ASDIRECTED Up With Assistance [RC] ASDIRECTED Up to Chair [RC] QID VTE/DVT Education [RC] Per Unit Routine Vital Signs [RC] Q4H PT Evaluation and Treatment [CONS] Routine Acetaminophen [Tylenol] 650 mg PO Q4H PRN Albuterol [Proventil Neb Soln] 2.5 mg NEB Q4H PRN Docusate Sodium/Sennosides [Senna Plus] 1 tab PO BID PRN Magnesium Hydroxide [Milk of Magnesia] 30 ml PO Q12H PRN Ondansetron [Zofran] 4 mg IV Q4H PRN Polyethylene Glycol 3350 [MiraLAX] 17 gm PO DAILY PRN Sodium Chloride 0.9% [Saline Flush] 10 ml FLUSH ASDIRECTED PRN Peripheral IV Insertion Adult [OM.PC] Routine 03/03/18 21:00 Gabapentin [Neurontin] 300 mg PO TID Metoprolol Tartrate [Lopressor] 12.5 mg PO BID PARoxetine [Paxil] 20 mg PO BEDTIME Ranitidine [Zantac] 150 mg PO BID 03/03/18 23:13 Code Status [Resuscitation Status] Routine 03/03/18 Dinner 2 Gram Sodium Diet [DIET] 03/04/18 01:00 Piperacillin/Tazobactam [Zosyn] 2.25 gm Sodium Chloride 0.9% [Normal Saline] 50 ml IV Q8H 03/04/18 07:30 Levothyroxine 112 mcg PO ACBRK 03/04/18 08:00 Potassium Chloride [Klor-Con M20] 20 meq PO DAILY@0800 predniSONE 5 mg PO DAILY@0800 03/04/18 09:00 Aspirin [Ecotrin] 325 mg PO DAILY Montelukast [Singulair] 10 mg PO DAILY Sulfamethoxazole/Trimethoprim [Septra DS] 1 tab PO DAILY Terazosin [Hytrin] 5 mg PO DAILY azaTHIOprine [Imuran] 50 mg PO DAILY 03/04/18 15:39 Convert IV to Saline Lock [OM.PC] Routine 03/04/18 16:00 Warfarin [Coumadin] 2.5 mg PO DAILY@1600 03/04/18 21:00 Furosemide [Lasix] 40 mg PO BID Spironolactone [Aldactone] 25 mg PO BID 03/05/18 05:00 BASIC METABOLIC PANEL,BMP [CHEM] Timed CBC WITH AUTO DIFF [HEME] Timed INR,PT,PROTHROMBIN TIME [COAG] Timed 03/05/18 18:00 Levofloxacin/Dextrose 5%-Water [Levaquin in D5W 500 MG/100 ML] 500 mg Premix Bag 1 bag IV Q48H - Plan Plan:: ASSESSMENT AND PLAN PNEUMONIA WITH SEPSIS-improved since admission, sepsis appears to be under control with improvement in lactic acid level as well as white blood cell count. -Saline lock IV -Broad-spectrum IV antibiotic therapy because of immune compromise; Zosyn and levofloxacin, doses adjusted for renal insufficiency -Lead cultures pending ADRENAL INSUFFICIENCY-iatrogenic, secondary to long-term prednisone use ACUTE ON CHRONIC RENAL INSUFFICIENCY-renal function has improved with hydration -Closely monitor urine output and renal function CONGESTIVE HEART FAILURE/AORTIC STENOSIS -Resume diuretic therapy -Continue other CHF medications ATRIAL FIBRILLATION-heart rate stable -Cardiac monitoring MAINTENANCE ISSUES -DVT prophylaxis; Lovenox 30 mg subcutaneous daily -GI prophylaxis; not indicated -Madden catheter; not indicated -Nutrition; 2 g sodium diet -Nicotine dependence; not required CODE STATUS-FULL CODE ADMISSION STATUS-patient will be admitted to inpatient status, expect at least a 2 night hospital stay for evaluation and management of problems as outlined above. At the time of this admission I do not reasonably expected evaluation and management of this problem will require more than a 96 hour hospital stay. DISPOSITION-anticipate discharge to home after the hospital stay. PRIMARY CARE PROVIDER-Dr. Coleman
[2018-03-04] MEDS ORDERED: Warfarin 2.5 MG Tab PO SCH (16:00)
[2018-03-04] MEDS: Furosemide 40 MG Tab PO SCH (16:14)
[2018-03-04] MEDS: Spironolactone 25 MG Tab PO SCH (21:36)
[2018-03-04] MEDS: PARoxetine 20 MG Tab PO SCH (21:37)
[2018-03-04] MEDS ORDERED: Albuterol/Ipratropium 3.0-0.5 MG/3 ML Neb Soln NEB STA (23:04)
[2018-03-04] MEDS ORDERED: Furosemide 40 MG/4 ML VIAL IVPUSH ONE (23:14)
[2018-03-05] MEDS: Piperacillin/Tazobactam 2.25 GM in Sodium Chloride 0.9% 50 ML IV SCH ×4 (01:08→20:28)
--- NOTE | 2018-03-05 02:16 | PCM.SN ---
- Free Text/Narrative Note: Time: 2208 call from [address] [place] [address], concerns of fluid over load S: Mr. Callaway reports shortness of breath with activity, denies chest pain O: appears comfortable, no distress. vital signs: Pulse irregular 110 to 130's- resp 30's - blood pressure 126/78 chest ; heart rate tacy and irregular, lungs; expiratory wheezing, decreased breath sounds on left chest, abdomen; distention, non tender extremities; edema A: concerns for fluid overload P: give Lasix 60 mg IV now monitor I and O may consider grant cath. if Mr. Callaway is getting fatigued continue with present plan of care Time: 01:30 O: Mr. Callaway has been incontinent of urine x 2, large amounts noted. Breathing has improved, heart rate 110's A: fluid overload P: continue with close monitoring.
[2018-03-05] MEDS ORDERED: Lactated Ringers 200 ML IV ONE (03:45)
[2018-03-05] MEDS: Albuterol 0.083% 2.5 MG/3 ML Neb Soln NEB PRN ×4 (03:45→22:38)
[2018-03-05] MEDS ORDERED: diphenhydrAMINE 25 MG Cap PO ONE (03:45)
[2018-03-05] MEDS ORDERED: Albuterol/Ipratropium 3.0-0.5 MG/3 ML Neb Soln NEB STA (06:45)
[2018-03-05] MEDS ORDERED: Furosemide 20 MG/2 ML VIAL IVPUSH ONE (08:00)
[2018-03-05] MEDS ORDERED: Lidocaine 2% Jelly 10 ML Urojet MUCMEM ONE (08:00)
[2018-03-05] MEDS: Levothyroxine 112 MCG Tab PO SCH (08:23)
--- NOTE | 2018-03-05 08:55 | CR ---
CHEST: Portable CLINICAL HISTORY:SOB COMPARISON:03/03/2018 FINDINGS: The heart is enlarged. Pulmonary vascular areas cephalized. There is some persistent incre ase in the perihilar lung markings. This has improved slightly since prior study. There is a minimal right effusion. Impression: Mild vascular cephalization There is some residual perihilar infiltrate bilaterally with slight improvement since prior study
[2018-03-05] MEDS: Potassium Chloride 20 MEQ Tab.ER PO SCH (08:58)
[2018-03-05] MEDS: predniSONE 5 MG Tab PO SCH (08:59)
[2018-03-05] MEDS: Aspirin 325 MG Tab.EC PO SCH (09:05)
[2018-03-05] MEDS: Sulfamethoxazole/Trimethoprim 800-160 MG Tab PO SCH (09:06)
[2018-03-05] MEDS: Gabapentin 300 MG Cap PO SCH ×3 (09:06→20:29)
[2018-03-05] MEDS: Terazosin 5 MG Cap PO SCH (09:07)
[2018-03-05] MEDS: Montelukast 10 MG Tab PO SCH (09:07)
[2018-03-05] MEDS: Spironolactone 25 MG Tab PO SCH (09:11)
[2018-03-05] MEDS: Metoprolol Tartrate 25 MG Tab PO SCH ×2 (09:12→20:29)
[2018-03-05] MEDS ORDERED: Digoxin 500 MCG/2 ML Amp IVPUSH ONE ×3 (09:30→17:05)
[2018-03-05] MEDS: Furosemide 40 MG Tab PO SCH (10:19)
--- NOTE | 2018-03-05 12:52 | PCM.PN ---
- General Info Date of Service: 03/05/18 Subjective Update: Mr. Callaway unfortunately had a difficult night with increased shortness of breath and heart rate. After evaluation this was felt to be secondary to fluid overload from fluids used for management of sepsis. He did receive IV Lasix last night and again this morning and has been resting more comfortably. Heart rate has improved after he was given IV digoxin. Also during this period of time has been more confused and agitated with underlying delirium. Because of delirium he is unable to provide significant information concerning recent symptoms or review of systems. - Patient Data Vitals - Most Recent: Last Vital Signs Temp 99.2 F 03/05/18 11:36 Pulse 94 03/05/18 11:40 Resp 22 H 03/05/18 11:36 BP 124/82 03/05/18 11:36 Pulse Ox 94 L 03/05/18 11:40 Weight - Most Recent: 197 lb 5.019 oz I&O - Last 24 Hours: Intake & Output 03/04/18 03/05/18 03/05/18 22:59 06:59 14:59 Intake Total 2040 600 530 Output Total 725 100 Balance 1315 500 530 Lab Results Last 24 Hours: Laboratory Results - last 24 hr 03/05/18 03/05/18 03/05/18 Range/Units 04:50 04:50 04:50 WBC 10.1 (4.5-11.0) K/uL RBC 3.11 L (4.30-5.90) M/uL Hgb 10.0 L (12.0-15.0) g/dL Hct 29.6 L (40.0-54.0) % MCV 95 (80-98) fL MCH 32 H (27-31) pg MCHC 34 (32-36) % Plt Count 130 L (150-400) K/uL Neut % (Auto) 83 H (36-66) % Lymph % (Auto) 7 L (24-44) % [place] % (Auto) 9 H (2-6) % Eos % (Auto) 0 L (2-4) % Baso % (Auto) 0 (0-1) % PT 21.4 H (9.5-12.0) sec INR 2.02 H (0.80-1.20) Sodium 132 L (140-148) mmol/L Potassium 4.1 (3.6-5.2) mmol/L Chloride 97 L (100-108) mmol/L Carbon Dioxide 23 (21-32) mmol/L Anion Gap 16.1 H (5.0-14.0) mmol/L BUN 38 H (7-18) mg/dL Creatinine 1.9 H (0.8-1.3) mg/dL Est Cr Clr Drug Dosing 25.13 mL/min Estimated GFR (MDRD) 34 L (>60) Glucose 119 H (74-106) mg/dL Calcium 8.6 (8.5-10.1) mg/dL Troponin I (0.000-0.056) ng/mL 03/05/18 Range/Units 06:44 WBC (4.5-11.0) K/uL RBC (4.30-5.90) M/uL Hgb (12.0-15.0) g/dL Hct (40.0-54.0) % MCV (80-98) fL MCH (27-31) pg MCHC (32-36) % Plt Count (150-400) K/uL Neut % (Auto) (36-66) % Lymph % (Auto) (24-44) % [place] % (Auto) (2-6) % Eos % (Auto) (2-4) % Baso % (Auto) (0-1) % PT (9.5-12.0) sec INR (0.80-1.20) Sodium (140-148) mmol/L Potassium (3.6-5.2) mmol/L Chloride (100-108) mmol/L Carbon Dioxide (21-32) mmol/L Anion Gap (5.0-14.0) mmol/L BUN (7-18) mg/dL Creatinine (0.8-1.3) mg/dL Est Cr Clr Drug Dosing mL/min Estimated GFR (MDRD) (>60) Glucose (74-106) mg/dL Calcium (8.5-10.1) mg/dL Troponin I 0.115 H* (0.000-0.056) ng/mL Deep Results Last 24 Hours: Microbiology 03/03/18 16:40 Aerobic Blood Culture - Preliminary Blood - Arm, Right NO GROWTH AFTER 1 DAY Anaerobic Blood Culture - Preliminary NO GROWTH AFTER 1 DAY 03/03/18 16:30 Aerobic Blood Culture - Preliminary Blood - Arm, Right NO GROWTH AFTER 1 DAY Anaerobic Blood Culture - Preliminary NO GROWTH AFTER 1 DAY Med Orders - Current: Current Medications Acetaminophen (Tylenol) 650 mg PO Q4H PRN PRN Reason: Pain (Mild 1-3)/fever Albuterol (Proventil Neb Soln) 2.5 mg NEB Q4H PRN PRN Reason: Shortness Of Breath/wheezing Last Admin: 03/05/18 11:40 Dose: 2.5 mg Aspirin (Ecotrin) 325 mg PO DAILY [facility] Last Admin: 03/05/18 09:05 Dose: 325 mg Azathioprine (Imuran) 50 mg PO DAILY [facility] Last Admin: 03/05/18 09:11 Dose: 50 mg Furosemide (Lasix) 40 mg IVPUSH NOW ONE Stop: 03/05/18 20:01 Gabapentin (Neurontin) 300 mg PO TID [facility] Last Admin: 03/05/18 09:06 Dose: 300 mg Piperacillin Sod/Tazobactam (Sod 2.25 gm/ Sodium Chloride) 50 mls @ 100 mls/hr IV Q6H [facility] Levofloxacin/Dextrose 750 mg/ (Premix) 150 mls @ 100 mls/hr IV Q48H [facility] Levothyroxine Sodium (Levothyroxine) 112 mcg PO ACBRK [facility] Last Admin: 03/05/18 08:23 Dose: 112 mcg Magnesium Hydroxide (Milk Of Magnesia) 30 ml PO Q12H PRN PRN Reason: Constipation Metoprolol Tartrate (Lopressor) 12.5 mg PO BID [facility] Last Admin: 03/05/18 09:12 Dose: 12.5 mg Montelukast Sodium (Singulair) 10 mg PO DAILY [facility] Last Admin: 03/05/18 09:07 Dose: 10 mg Ondansetron HCl (Zofran) 4 mg IV Q4H PRN PRN Reason: Nausea/Vomiting Paroxetine HCl (Paxil) 20 mg PO BEDTIME [facility] Last Admin: 03/04/18 21:37 Dose: 20 mg Polyethylene Glycol (Miralax) 17 gm PO DAILY PRN PRN Reason: Constipation Potassium Chloride (Klor-Con M20) 20 meq PO DAILY@0800 [facility] Last Admin: 03/05/18 08:58 Dose: 20 meq Prednisone (Prednisone) 5 mg PO DAILY@0800 [facility] Last Admin: 03/05/18 08:59 Dose: 5 mg Ranitidine HCl (Zantac) 150 mg PO BID [facility] Last Admin: 03/05/18 09:06 Dose: 150 mg Senna/Docusate Sodium (Senna Plus) 1 tab PO BID PRN PRN Reason: Constipation Sodium Chloride (Saline Flush) 10 ml FLUSH ASDIRECTED PRN PRN Reason: Keep Vein Open Terazosin HCl (Hytrin) 5 mg PO DAILY [facility] Last Admin: 03/05/18 09:07 Dose: 5 mg Trimethoprim/Sulfamethoxazole (Septra Ds) 1 tab PO DAILY [facility] Last Admin: 03/05/18 09:06 Dose: 1 tab Warfarin Sodium (Coumadin) 2.5 mg PO DAILY@1600 [facility] Discontinued Medications Albuterol/Ipratropium (Duoneb 3.0-0.5 Mg/3 Ml) 3 ml NEB ONETIME STA Stop: 03/04/18 23:05 Last Admin: 03/04/18 23:24 Dose: 3 ml Albuterol/Ipratropium (Duoneb 3.0-0.5 Mg/3 Ml) 3 ml NEB ONETIME STA Stop: 03/05/18 06:46 Last Admin: 03/05/18 07:09 Dose: 3 ml Digoxin (Lanoxin) 250 mcg IVPUSH ONETIME ONE Stop: 03/05/18 09:31 Last Admin: 03/05/18 08:50 Dose: 250 mcg Diphenhydramine HCl (Benadryl) 25 mg PO ONETIME ONE Stop: 03/05/18 03:46 Last Admin: 03/05/18 04:04 Dose: 25 mg Enoxaparin Sodium (Lovenox) 30 mg SUBCUT DAILY [facility] Furosemide (Lasix) 40 mg PO BIDMEALS [facility] Last Admin: 03/05/18 10:19 Dose: Not Given Furosemide (Lasix) 60 mg IVPUSH ONETIME ONE Stop: 03/04/18 23:15 Last Admin: 03/04/18 23:26 Dose: 60 mg Furosemide (Lasix) 60 mg IVPUSH ONETIME ONE Stop: 03/05/18 08:01 Last Admin: 03/05/18 08:06 Dose: 60 mg Hydrocortisone Sodium Succinate (Solu-Cortef) 100 mg IVPUSH ONETIME ONE Stop: 03/03/18 18:53 Last Admin: 03/03/18 20:25 Dose: 100 mg Lactated Ringer's (Ringers, Lactated) 1,000 mls @ 500 mls/hr IV ASDIRECTED [facility] Last Admin: 03/03/18 16:33 Dose: 500 mls/hr Piperacillin Sod/Tazobactam (Sod 4.5 gm/ Sodium Chloride) 100 mls @ 200 mls/hr IV Q6H [facility] Piperacillin/Tazobactam/ (Dextrose 4.5 gm/ Premix) 100 mls @ 200 mls/hr IV Q6H [facility] Stop: 03/03/18 17:30 Last Admin: 03/03/18 16:57 Dose: 200 mls/hr Lactated Ringer's (Ringers, Lactated) 1,000 mls @ 125 mls/hr IV ASDIRECTED [facility] Last Admin: 03/04/18 08:26 Dose: 125 mls/hr Levofloxacin/Dextrose 750 mg/ (Premix) 150 mls @ 100 mls/hr IV ONETIME ONE Stop: 03/03/18 20:21 Last Admin: 03/03/18 20:27 Dose: 100 mls/hr Levofloxacin/Dextrose 500 mg/ (Premix) 100 mls @ 100 mls/hr IV Q48H [facility] Piperacillin Sod/Tazobactam (Sod 2.25 gm/ Sodium Chloride) 50 mls @ 100 mls/hr IV Q8H [facility] Stop: 03/05/18 10:00 Last Admin: 03/05/18 09:15 Dose: 100 mls/hr Lactated Ringer's (Ringers, Lactated) 1,000 mls @ 500 mls/hr IV .BOLUS [facility] Stop: 03/03/18 23:31 Last Admin: 03/03/18 22:43 Dose: 500 mls/hr Lactated Ringer's (Ringers, Lactated) 200 mls @ 200 mls/hr IV ONETIME ONE Stop: 03/05/18 04:44 Last Admin: 03/05/18 04:03 Dose: 200 mls/hr Lidocaine HCl (Xylocaine 2% Jelly) 10 ml MUCMEM ONETIME ONE Stop: 03/05/18 08:01 Last Admin: 03/05/18 08:06 Dose: 10 ml Spironolactone (Aldactone) 25 mg PO BID [facility] Last Admin: 03/05/18 09:11 Dose: 25 mg - Exam General: Lethargic Lungs: Decreased Breath Sounds, Rales, Wheezing. No: Crackles, Rhonchi, Rub Cardiovascular: No Murmurs, Irregular Rhythm, Tachycardia GI/Abdominal Exam: Soft, Non-Tender, No Organomegaly, No Distention Extremities: Non-Tender, No Pedal Edema Skin: Warm, Dry - Problem List Review Problem List Initiated/Reviewed/Updated: Yes - My Orders Last 24 Hours: My Active Orders 03/04/18 15:39 Convert IV to Saline Lock [OM.PC] Routine 03/04/18 16:00 Warfarin [Coumadin] 2.5 mg PO DAILY@1600 03/05/18 07:38 Urinary Catheter Assessment [RC] Q12H 03/05/18 07:45 Madden Catheter Insertion [Insert Urinary Catheter] [OM.PC] Q24H 03/05/18 15:00 Piperacillin/Tazobactam [Zosyn] 2.25 gm Sodium Chloride 0.9% [Normal Saline] 50 ml IV Q6H 03/05/18 18:00 Levofloxacin/Dextrose 5%-Water [Levaquin in D5W 750 MG/150 ML] 750 mg Premix Bag 1 bag IV Q48H 03/05/18 20:00 Furosemide [Lasix] 40 mg IVPUSH NOW ONE 03/06/18 05:00 BASIC METABOLIC PANEL,BMP [CHEM] Timed INR,PT,PROTHROMBIN TIME [COAG] Timed - Plan Plan:: ASSESSMENT AND PLAN PNEUMONIA WITH SEPSIS-infection seems to be well controlled with current management, he is been afebrile with normalization of white blood cell count -Saline lock IV -Broad-spectrum IV antibiotic therapy because of immune compromise; Zosyn and levofloxacin, doses adjusted for renal insufficiency -Blood cultures pending ADRENAL INSUFFICIENCY-iatrogenic, secondary to long-term prednisone use ACUTE ON CHRONIC RENAL INSUFFICIENCY-renal function has improved with hydration -Closely monitor urine output and renal function CONGESTIVE HEART FAILURE/AORTIC STENOSIS-exacerbation secondary to fluid used for management of sepsis, he is responded to diuretic therapy with less shortness of breath and hypoxia -Furosemide IV later today, reassess in a.m. -Continue other CHF medications DELIRIUM-likely secondary to acute illness and underlying mild dementia -Melatonin 9 mg by mouth daily at bedtime -Depakote 250 mg by mouth twice daily ATRIAL FIBRILLATION-heart rate increased secondary to CHF exacerbation and now has improved with management of pulmonary edema and a single dose of digoxin -Cardiac monitoring MAINTENANCE ISSUES -DVT prophylaxis; current therapy with warfarin should provide adequate DVT prophylaxis -GI prophylaxis; not indicated -Madden catheter; not indicated -Nutrition; 2 g sodium diet -Nicotine dependence; not required CODE STATUS-FULL CODE ADMISSION STATUS-patient will be admitted to inpatient status, expect at least a 2 night hospital stay for evaluation and management of problems as outlined above. At the time of this admission I do not reasonably expected evaluation and management of this problem will require more than a 96 hour hospital stay. DISPOSITION-anticipate discharge to home after the hospital stay. PRIMARY CARE PROVIDER-Dr. Coleman
[2018-03-05] MEDS ORDERED: Digoxin 500 MCG/2 ML Amp ONE (17:14)
[2018-03-05] MEDS: Warfarin 2.5 MG Tab PO SCH ×2 (17:52→18:30)
[2018-03-05] MEDS: Divalproex Sodium Delayed-Release 250 MG Tab.CR PO SCH ×2 (17:53→18:31)
[2018-03-05] MEDS: Levofloxacin/Dextrose 5%-Water 750 MG in Premix Bag 1 BAG IV SCH (17:54)
[2018-03-05] MEDS ORDERED: Levofloxacin/Dextrose 5%-Water 500 MG in Premix Bag 1 BAG IV SCH (18:00)
[2018-03-05] MEDS ORDERED: Furosemide 40 MG/4 ML VIAL IVPUSH ONE (20:00)
[2018-03-05] MEDS: Melatonin 3 MG Tab PO SCH (20:28)
[2018-03-05] MEDS: PARoxetine 20 MG Tab PO SCH (20:30)
[2018-03-06] MEDS: Piperacillin/Tazobactam 2.25 GM in Sodium Chloride 0.9% 50 ML IV SCH ×2 (02:47→08:57)
[2018-03-06] MEDS: predniSONE 5 MG Tab PO SCH (07:37)
[2018-03-06] MEDS: Potassium Chloride 20 MEQ Tab.ER PO SCH (07:37)
[2018-03-06] MEDS: Divalproex Sodium Delayed-Release 250 MG Tab.CR PO SCH ×2 (07:37→17:00)
[2018-03-06] MEDS: Levothyroxine 112 MCG Tab PO SCH (07:37)
[2018-03-06] MEDS: Albuterol 0.083% 2.5 MG/3 ML Neb Soln NEB PRN ×4 (08:08→20:38)
[2018-03-06] MEDS: Gabapentin 300 MG Cap PO SCH ×3 (08:59→20:40)
[2018-03-06] MEDS: Terazosin 5 MG Cap PO SCH (09:01)
[2018-03-06] MEDS: Montelukast 10 MG Tab PO SCH (09:03)
[2018-03-06] MEDS: Metoprolol Tartrate 25 MG Tab PO SCH ×2 (09:04→20:39)
[2018-03-06] MEDS: Aspirin 325 MG Tab.EC PO SCH (09:05)
[2018-03-06] MEDS: Sulfamethoxazole/Trimethoprim 800-160 MG Tab PO SCH (09:06)
--- NOTE | 2018-03-06 13:42 | PCM.PN ---
- General Info Date of Service: 03/06/18 Subjective Update: Mr. Callaway has improved over the last 24 hours, less confused, more alert and interactive. Heart rate has been stable and respiratory compromise has significantly improved. He denies shortness of breath at the present time, but remains fairly weak. Functional Status: Reports: Pain Controlled, Tolerating Diet - Review of Systems General: Reports: Weakness. Denies: Fever, Chills Pulmonary: Reports: Cough, Wheezing. Denies: Sputum, Hemoptysis Cardiovascular: Reports: No Symptoms Gastrointestinal: Reports: No Symptoms - Patient Data Vitals - Most Recent: Last Vital Signs Temp 97.8 F 03/06/18 12:46 Pulse 91 03/06/18 12:46 Resp 20 03/06/18 12:46 BP 95/63 03/06/18 12:46 Pulse Ox 97 03/06/18 13:18 Weight - Most Recent: 196 lb I&O - Last 24 Hours: Intake & Output 03/05/18 03/06/18 03/06/18 22:59 06:59 14:59 Intake Total 260 50 Output Total 600 1100 275 Balance -340 -1100 -225 Lab Results Last 24 Hours: Laboratory Results - last 24 hr 03/05/18 03/06/18 03/06/18 Range/Units 13:26 04:39 04:39 PT 17.0 H (9.5-12.0) sec INR 1.59 H (0.80-1.20) Sodium 147 (140-148) mmol/L Potassium 4.2 (3.6-5.2) mmol/L Chloride 110 H (100-108) mmol/L Carbon Dioxide 27 (21-32) mmol/L Anion Gap 14.2 H (5.0-14.0) mmol/L BUN 40 H (7-18) mg/dL Creatinine 1.7 H (0.8-1.3) mg/dL Est Cr Clr Drug Dosing 28.08 mL/min Estimated GFR (MDRD) 38 L (>60) Glucose 110 H (74-106) mg/dL Calcium 8.6 (8.5-10.1) mg/dL Troponin I 0.159 H* (0.000-0.056) ng/mL Deep Results Last 24 Hours: Microbiology 03/03/18 16:40 Aerobic Blood Culture - Preliminary Blood - Arm, Right NO GROWTH AFTER 2 DAYS Anaerobic Blood Culture - Preliminary NO GROWTH AFTER 2 DAYS 03/03/18 16:30 Aerobic Blood Culture - Preliminary Blood - Arm, Right NO GROWTH AFTER 2 DAYS Anaerobic Blood Culture - Preliminary NO GROWTH AFTER 2 DAYS Med Orders - Current: Current Medications Acetaminophen (Tylenol) 650 mg PO Q4H PRN PRN Reason: Pain (Mild 1-3)/fever Albuterol (Proventil Neb Soln) 2.5 mg NEB Q4H PRN PRN Reason: Shortness Of Breath/wheezing Last Admin: 03/06/18 12:52 Dose: 2.5 mg Aspirin (Ecotrin) 325 mg PO DAILY [facility] Last Admin: 03/06/18 09:05 Dose: 325 mg Azathioprine (Imuran) 50 mg PO DAILY [facility] Last Admin: 03/06/18 09:05 Dose: 50 mg Digoxin (Lanoxin) 250 mcg IVPUSH ONETIME ONE Last Admin: 03/05/18 17:54 Dose: 250 mcg Divalproex Sodium (Divalproex Sodium) 250 mg PO BIDMEALS [facility] Last Admin: 03/06/18 07:37 Dose: 250 mg Furosemide (Lasix) 40 mg IVPUSH NOW ONE Stop: 03/06/18 13:34 Gabapentin (Neurontin) 300 mg PO TID [facility] Last Admin: 03/06/18 08:59 Dose: 300 mg Levofloxacin/Dextrose 750 mg/ (Premix) 150 mls @ 100 mls/hr IV Q48H [facility] Last Admin: 03/05/18 17:54 Dose: 100 mls/hr Levothyroxine Sodium (Levothyroxine) 112 mcg PO ACBRK [facility] Last Admin: 03/06/18 07:37 Dose: 112 mcg Magnesium Hydroxide (Milk Of Magnesia) 30 ml PO Q12H PRN PRN Reason: Constipation Melatonin (Melatonin) 9 mg PO BEDTIME [facility] Last Admin: 03/05/18 20:28 Dose: 9 mg Metoprolol Tartrate (Lopressor) 12.5 mg PO BID [facility] Last Admin: 03/06/18 09:04 Dose: 12.5 mg Montelukast Sodium (Singulair) 10 mg PO DAILY [facility] Last Admin: 03/06/18 09:03 Dose: 10 mg Ondansetron HCl (Zofran) 4 mg IV Q4H PRN PRN Reason: Nausea/Vomiting Paroxetine HCl (Paxil) 20 mg PO BEDTIME [facility] Last Admin: 03/05/18 20:30 Dose: 20 mg Polyethylene Glycol (Miralax) 17 gm PO DAILY PRN PRN Reason: Constipation Potassium Chloride (Klor-Con M20) 20 meq PO DAILY@0800 [facility] Last Admin: 03/06/18 07:37 Dose: 20 meq Prednisone (Prednisone) 5 mg PO DAILY@0800 [facility] Last Admin: 03/06/18 07:37 Dose: 5 mg Ranitidine HCl (Zantac) 150 mg PO BID [facility] Last Admin: 03/06/18 09:07 Dose: 150 mg Senna/Docusate Sodium (Senna Plus) 1 tab PO BID PRN PRN Reason: Constipation Sodium Chloride (Saline Flush) 10 ml FLUSH ASDIRECTED PRN PRN Reason: Keep Vein Open Terazosin HCl (Hytrin) 5 mg PO DAILY [facility] Last Admin: 03/06/18 09:01 Dose: 5 mg Trimethoprim/Sulfamethoxazole (Septra Ds) 1 tab PO DAILY [facility] Last Admin: 03/06/18 09:06 Dose: 1 tab Warfarin Sodium (Coumadin) 5 mg PO ONETIME ONE Stop: 03/06/18 13:33 Discontinued Medications Albuterol/Ipratropium (Duoneb 3.0-0.5 Mg/3 Ml) 3 ml NEB ONETIME STA Stop: 03/04/18 23:05 Last Admin: 03/04/18 23:24 Dose: 3 ml Albuterol/Ipratropium (Duoneb 3.0-0.5 Mg/3 Ml) 3 ml NEB ONETIME STA Stop: 03/05/18 06:46 Last Admin: 03/05/18 07:09 Dose: 3 ml Digoxin (Lanoxin) 250 mcg IVPUSH ONETIME ONE Stop: 03/05/18 09:31 Last Admin: 03/05/18 08:50 Dose: 250 mcg Digoxin (Lanoxin) Confirm Administered Dose 500 mcg .ROUTE .STK-MED ONE Stop: 03/05/18 17:15 Last Admin: 03/05/18 17:52 Dose: Not Given Diphenhydramine HCl (Benadryl) 25 mg PO ONETIME ONE Stop: 03/05/18 03:46 Last Admin: 03/05/18 04:04 Dose: 25 mg Enoxaparin Sodium (Lovenox) 30 mg SUBCUT DAILY [facility] Furosemide (Lasix) 40 mg PO BIDMEALS [facility] Last Admin: 03/05/18 10:19 Dose: Not Given Furosemide (Lasix) 60 mg IVPUSH ONETIME ONE Stop: 03/04/18 23:15 Last Admin: 03/04/18 23:26 Dose: 60 mg Furosemide (Lasix) 60 mg IVPUSH ONETIME ONE Stop: 03/05/18 08:01 Last Admin: 03/05/18 08:06 Dose: 60 mg Furosemide (Lasix) 40 mg IVPUSH NOW ONE Stop: 03/05/18 20:01 Last Admin: 03/05/18 20:28 Dose: 40 mg Hydrocortisone Sodium Succinate (Solu-Cortef) 100 mg IVPUSH ONETIME ONE Stop: 03/03/18 18:53 Last Admin: 03/03/18 20:25 Dose: 100 mg Lactated Ringer's (Ringers, Lactated) 1,000 mls @ 500 mls/hr IV ASDIRECTED [facility] Last Admin: 03/03/18 16:33 Dose: 500 mls/hr Piperacillin Sod/Tazobactam (Sod 4.5 gm/ Sodium Chloride) 100 mls @ 200 mls/hr IV Q6H [facility] Piperacillin/Tazobactam/ (Dextrose 4.5 gm/ Premix) 100 mls @ 200 mls/hr IV Q6H [facility] Stop: 03/03/18 17:30 Last Admin: 03/03/18 16:57 Dose: 200 mls/hr Lactated Ringer's (Ringers, Lactated) 1,000 mls @ 125 mls/hr IV ASDIRECTED [facility] Last Admin: 03/04/18 08:26 Dose: 125 mls/hr Levofloxacin/Dextrose 750 mg/ (Premix) 150 mls @ 100 mls/hr IV ONETIME ONE Stop: 03/03/18 20:21 Last Admin: 03/03/18 20:27 Dose: 100 mls/hr Levofloxacin/Dextrose 500 mg/ (Premix) 100 mls @ 100 mls/hr IV Q48H [facility] Piperacillin Sod/Tazobactam (Sod 2.25 gm/ Sodium Chloride) 50 mls @ 100 mls/hr IV Q8H [facility] Stop: 03/05/18 10:00 Last Admin: 03/05/18 09:15 Dose: 100 mls/hr Lactated Ringer's (Ringers, Lactated) 1,000 mls @ 500 mls/hr IV .BOLUS [facility] Stop: 03/03/18 23:31 Last Admin: 03/03/18 22:43 Dose: 500 mls/hr Lactated Ringer's (Ringers, Lactated) 200 mls @ 200 mls/hr IV ONETIME ONE Stop: 03/05/18 04:44 Last Admin: 03/05/18 04:03 Dose: 200 mls/hr Piperacillin Sod/Tazobactam (Sod 2.25 gm/ Sodium Chloride) 50 mls @ 100 mls/hr IV Q6H [facility] Last Admin: 03/06/18 08:57 Dose: 100 mls/hr Lidocaine HCl (Xylocaine 2% Jelly) 10 ml MUCMEM ONETIME ONE Stop: 03/05/18 08:01 Last Admin: 03/05/18 08:06 Dose: 10 ml Spironolactone (Aldactone) 25 mg PO BID [facility] Last Admin: 03/05/18 09:11 Dose: 25 mg Warfarin Sodium (Coumadin) 2.5 mg PO DAILY@1600 [facility] Warfarin Sodium (Coumadin) 2.5 mg PO DAILY@1600 [facility] Last Admin: 03/05/18 18:30 Dose: 2.5 mg - Exam Quality Assessment: Supplemental Oxygen, Urine Catheter, DVT Prophylaxis General: Alert, Cooperative, No Acute Distress Lungs: Decreased Breath Sounds, Rales, Wheezing Cardiovascular: Regular Rate, No Murmurs, Irregular Rhythm. No: Bradycardia, Tachycardia GI/Abdominal Exam: Soft, Non-Tender, No Organomegaly, No Distention Extremities: Non-Tender, No Pedal Edema - Problem List Review Problem List Initiated/Reviewed/Updated: Yes - My Orders Last 24 Hours: My Active Orders 03/05/18 17:00 Divalproex Sodium 250 mg PO BIDMEALS 03/05/18 17:03 Digoxin [Lanoxin] 250 mcg IVPUSH ONETIME ONE 03/05/18 18:00 Levofloxacin/Dextrose 5%-Water [Levaquin in D5W 750 MG/150 ML] 750 mg Premix Bag 1 bag IV Q48H 03/05/18 21:00 Melatonin 9 mg PO BEDTIME 03/06/18 13:32 Warfarin [Coumadin] 5 mg PO ONETIME ONE 03/06/18 13:33 Furosemide [Lasix] 40 mg IVPUSH NOW ONE 03/07/18 05:00 BASIC METABOLIC PANEL,BMP [CHEM] Timed DIGOXIN [CHEM] Timed 03/07/18 05:11 INR,PT,PROTHROMBIN TIME [COAG] AM - Plan Plan:: ASSESSMENT AND PLAN PNEUMONIA WITH SEPSIS-infection seems to be well controlled with current management, he is been afebrile with normalization of white blood cell count -Saline lock IV -Continue IV levofloxacin -Continue IV Zosyn -Blood cultures pending ADRENAL INSUFFICIENCY-iatrogenic, secondary to long-term prednisone use ACUTE ON CHRONIC RENAL INSUFFICIENCY-renal function has improved with hydration -Closely monitor urine output and renal function CONGESTIVE HEART FAILURE/AORTIC STENOSIS-exacerbation secondary to fluid used for management of sepsis, he is responded to diuretic therapy with less shortness of breath and hypoxia -Furosemide IV 40mg now -Continue other CHF medications DELIRIUM-significantly improved since yesterday with less confusion and agitation -Melatonin 9 mg by mouth daily at bedtime -Depakote 250 mg by mouth twice daily ATRIAL FIBRILLATION-heart rate increased secondary to CHF exacerbation and now has improved with management of pulmonary edema and a single dose of digoxin -Cardiac monitoring MAINTENANCE ISSUES -DVT prophylaxis; current therapy with warfarin should provide adequate DVT prophylaxis -GI prophylaxis; not indicated -Madden catheter; not indicated -Nutrition; 2 g sodium diet -Nicotine dependence; not required CODE STATUS-FULL CODE ADMISSION STATUS-patient will be admitted to inpatient status, expect at least a 2 night hospital stay for evaluation and management of problems as outlined above. At the time of this admission I do not reasonably expected evaluation and management of this problem will require more than a 96 hour hospital stay. DISPOSITION-anticipate discharge to group home PRIMARY CARE PROVIDER-Dr. Coleman
[2018-03-06] MEDS ORDERED: Furosemide 40 MG/4 ML VIAL IVPUSH ONE (13:45)
[2018-03-06] MEDS ORDERED: Warfarin 5 MG Tab PO ONE (14:00)
[2018-03-06] MEDS: PARoxetine 20 MG Tab PO SCH (20:39)
[2018-03-06] MEDS: Melatonin 3 MG Tab PO SCH (20:40)
[2018-03-07] MEDS: Albuterol 0.083% 2.5 MG/3 ML Neb Soln NEB PRN ×3 (06:04→19:56)
[2018-03-07] MEDS: Divalproex Sodium Delayed-Release 250 MG Tab.CR PO SCH ×2 (07:59→17:55)
[2018-03-07] MEDS: Levothyroxine 112 MCG Tab PO SCH (07:59)
[2018-03-07] MEDS: Potassium Chloride 20 MEQ Tab.ER PO SCH (07:59)
[2018-03-07] MEDS: predniSONE 5 MG Tab PO SCH (07:59)
[2018-03-07] MEDS: Aspirin 325 MG Tab.EC PO SCH (08:00)
[2018-03-07] MEDS: Terazosin 5 MG Cap PO SCH (08:05)
[2018-03-07] MEDS: Metoprolol Tartrate 25 MG Tab PO SCH ×2 (08:05→20:07)
[2018-03-07] MEDS: Sulfamethoxazole/Trimethoprim 800-160 MG Tab PO SCH (08:06)
[2018-03-07] MEDS: Montelukast 10 MG Tab PO SCH (08:06)
[2018-03-07] MEDS: Gabapentin 300 MG Cap PO SCH ×3 (08:06→20:07)
--- NOTE | 2018-03-07 11:25 | PCM.PN ---
- General Info Date of Service: 03/07/18 Subjective Update: Mr. Callaway has been stable since yesterday, no further hallucinations or significant confusion. Strength seems to be slowly improving and he has not had significant tachycardia or respiratory compromise. Functional Status: Reports: Tolerating Diet, Urinating - Review of Systems General: Reports: Weakness. Denies: Fever, Chills Pulmonary: Reports: Shortness of Breath, Wheezing. Denies: Pleuritic Chest Pain , Cough, Sputum, Hemoptysis Cardiovascular: Reports: Dyspnea on Exertion. Denies: Chest Pain, Palpitations , Orthopnea, PND, Edema Gastrointestinal: Reports: No Symptoms - Patient Data Vitals - Most Recent: Last Vital Signs Temp 97.9 F 03/07/18 11:00 Pulse 66 03/07/18 11:00 Resp 18 03/07/18 11:00 BP 91/63 03/07/18 11:00 Pulse Ox 97 03/07/18 11:00 Weight - Most Recent: 196 lb 11.2 oz I&O - Last 24 Hours: Intake & Output 03/06/18 03/07/18 03/07/18 22:59 06:59 14:59 Output Total 1250 Balance -1250 Lab Results Last 24 Hours: Laboratory Results - last 24 hr 03/07/18 03/07/18 Range/Units 05:49 05:49 PT 24.3 H (9.5-12.0) sec INR 2.32 H (0.80-1.20) Sodium 134 L (140-148) mmol/L Potassium 4.3 (3.6-5.2) mmol/L Chloride 99 L (100-108) mmol/L Carbon Dioxide 28 (21-32) mmol/L Anion Gap 11.3 (5.0-14.0) mmol/L BUN 39 H (7-18) mg/dL Creatinine 1.7 H (0.8-1.3) mg/dL Est Cr Clr Drug Dosing 28.08 mL/min Estimated GFR (MDRD) 38 L (>60) Glucose 106 (74-106) mg/dL Calcium 9.0 (8.5-10.1) mg/dL Digoxin 0.77 L (0.90-2.00) ng/mL Deep Results Last 24 Hours: Microbiology 03/03/18 16:40 Aerobic Blood Culture - Preliminary Blood - Arm, Right NO GROWTH AFTER 3 DAYS Anaerobic Blood Culture - Preliminary NO GROWTH AFTER 3 DAYS 03/03/18 16:30 Aerobic Blood Culture - Preliminary Blood - Arm, Right NO GROWTH AFTER 3 DAYS Anaerobic Blood Culture - Preliminary NO GROWTH AFTER 3 DAYS Med Orders - Current: Current Medications Acetaminophen (Tylenol) 650 mg PO Q4H PRN PRN Reason: Pain (Mild 1-3)/fever Albuterol (Proventil Neb Soln) 2.5 mg NEB Q4H PRN PRN Reason: Shortness Of Breath/wheezing Last Admin: 03/07/18 06:04 Dose: 2.5 mg Aspirin (Ecotrin) 325 mg PO DAILY [facility] Last Admin: 03/07/18 08:00 Dose: 325 mg Azathioprine (Imuran) 50 mg PO DAILY [facility] Last Admin: 03/07/18 08:05 Dose: 50 mg Digoxin (Lanoxin) 250 mcg IVPUSH ONETIME ONE Last Admin: 03/05/18 17:54 Dose: 250 mcg Divalproex Sodium (Divalproex Sodium) 250 mg PO BIDMEALS [facility] Last Admin: 03/07/18 07:59 Dose: 250 mg Furosemide (Lasix) 40 mg IVPUSH NOW ONE Stop: 03/07/18 11:22 Gabapentin (Neurontin) 300 mg PO TID [facility] Last Admin: 03/07/18 08:06 Dose: 300 mg Levofloxacin/Dextrose 750 mg/ (Premix) 150 mls @ 100 mls/hr IV Q48H [facility] Last Admin: 03/05/18 17:54 Dose: 100 mls/hr Levothyroxine Sodium (Levothyroxine) 112 mcg PO ACBRK [facility] Last Admin: 03/07/18 07:59 Dose: 112 mcg Magnesium Hydroxide (Milk Of Magnesia) 30 ml PO Q12H PRN PRN Reason: Constipation Melatonin (Melatonin) 9 mg PO BEDTIME [facility] Last Admin: 03/06/18 20:40 Dose: 9 mg Metoprolol Tartrate (Lopressor) 12.5 mg PO BID [facility] Last Admin: 03/07/18 08:05 Dose: Not Given Montelukast Sodium (Singulair) 10 mg PO DAILY [facility] Last Admin: 03/07/18 08:06 Dose: 10 mg Ondansetron HCl (Zofran) 4 mg IV Q4H PRN PRN Reason: Nausea/Vomiting Paroxetine HCl (Paxil) 20 mg PO BEDTIME [facility] Last Admin: 03/06/18 20:39 Dose: 20 mg Polyethylene Glycol (Miralax) 17 gm PO DAILY PRN PRN Reason: Constipation Potassium Chloride (Klor-Con M20) 20 meq PO DAILY@0800 [facility] Last Admin: 03/07/18 07:59 Dose: 20 meq Prednisone (Prednisone) 5 mg PO DAILY@0800 [facility] Last Admin: 03/07/18 07:59 Dose: 5 mg Ranitidine HCl (Zantac) 150 mg PO BID [facility] Last Admin: 03/07/18 08:06 Dose: 150 mg Senna/Docusate Sodium (Senna Plus) 1 tab PO BID PRN PRN Reason: Constipation Sodium Chloride (Saline Flush) 10 ml FLUSH ASDIRECTED PRN PRN Reason: Keep Vein Open Terazosin HCl (Hytrin) 5 mg PO DAILY [facility] Last Admin: 03/07/18 08:05 Dose: Not Given Trimethoprim/Sulfamethoxazole (Septra Ds) 1 tab PO DAILY [facility] Last Admin: 03/07/18 08:06 Dose: 1 tab Discontinued Medications Albuterol/Ipratropium (Duoneb 3.0-0.5 Mg/3 Ml) 3 ml NEB ONETIME STA Stop: 03/04/18 23:05 Last Admin: 03/04/18 23:24 Dose: 3 ml Albuterol/Ipratropium (Duoneb 3.0-0.5 Mg/3 Ml) 3 ml NEB ONETIME STA Stop: 03/05/18 06:46 Last Admin: 03/05/18 07:09 Dose: 3 ml Digoxin (Lanoxin) 250 mcg IVPUSH ONETIME ONE Stop: 03/05/18 09:31 Last Admin: 03/05/18 08:50 Dose: 250 mcg Digoxin (Lanoxin) Confirm Administered Dose 500 mcg .ROUTE .STK-MED ONE Stop: 03/05/18 17:15 Last Admin: 03/05/18 17:52 Dose: Not Given Diphenhydramine HCl (Benadryl) 25 mg PO ONETIME ONE Stop: 03/05/18 03:46 Last Admin: 03/05/18 04:04 Dose: 25 mg Enoxaparin Sodium (Lovenox) 30 mg SUBCUT DAILY [facility] Furosemide (Lasix) 40 mg PO BIDMEALS [facility] Last Admin: 03/05/18 10:19 Dose: Not Given Furosemide (Lasix) 60 mg IVPUSH ONETIME ONE Stop: 03/04/18 23:15 Last Admin: 03/04/18 23:26 Dose: 60 mg Furosemide (Lasix) 60 mg IVPUSH ONETIME ONE Stop: 03/05/18 08:01 Last Admin: 03/05/18 08:06 Dose: 60 mg Furosemide (Lasix) 40 mg IVPUSH NOW ONE Stop: 03/05/18 20:01 Last Admin: 03/05/18 20:28 Dose: 40 mg Furosemide (Lasix) 40 mg IVPUSH NOW ONE Stop: 03/06/18 13:46 Last Admin: 03/06/18 13:59 Dose: 40 mg Hydrocortisone Sodium Succinate (Solu-Cortef) 100 mg IVPUSH ONETIME ONE Stop: 03/03/18 18:53 Last Admin: 03/03/18 20:25 Dose: 100 mg Lactated Ringer's (Ringers, Lactated) 1,000 mls @ 500 mls/hr IV ASDIRECTED [facility] Last Admin: 03/03/18 16:33 Dose: 500 mls/hr Piperacillin Sod/Tazobactam (Sod 4.5 gm/ Sodium Chloride) 100 mls @ 200 mls/hr IV Q6H [facility] Piperacillin/Tazobactam/ (Dextrose 4.5 gm/ Premix) 100 mls @ 200 mls/hr IV Q6H [facility] Stop: 03/03/18 17:30 Last Admin: 03/03/18 16:57 Dose: 200 mls/hr Lactated Ringer's (Ringers, Lactated) 1,000 mls @ 125 mls/hr IV ASDIRECTED [facility] Last Admin: 03/04/18 08:26 Dose: 125 mls/hr Levofloxacin/Dextrose 750 mg/ (Premix) 150 mls @ 100 mls/hr IV ONETIME ONE Stop: 03/03/18 20:21 Last Admin: 03/03/18 20:27 Dose: 100 mls/hr Levofloxacin/Dextrose 500 mg/ (Premix) 100 mls @ 100 mls/hr IV Q48H [facility] Piperacillin Sod/Tazobactam (Sod 2.25 gm/ Sodium Chloride) 50 mls @ 100 mls/hr IV Q8H [facility] Stop: 03/05/18 10:00 Last Admin: 03/05/18 09:15 Dose: 100 mls/hr Lactated Ringer's (Ringers, Lactated) 1,000 mls @ 500 mls/hr IV .BOLUS [facility] Stop: 03/03/18 23:31 Last Admin: 03/03/18 22:43 Dose: 500 mls/hr Lactated Ringer's (Ringers, Lactated) 200 mls @ 200 mls/hr IV ONETIME ONE Stop: 03/05/18 04:44 Last Admin: 03/05/18 04:03 Dose: 200 mls/hr Piperacillin Sod/Tazobactam (Sod 2.25 gm/ Sodium Chloride) 50 mls @ 100 mls/hr IV Q6H [facility] Last Admin: 03/06/18 08:57 Dose: 100 mls/hr Lidocaine HCl (Xylocaine 2% Jelly) 10 ml MUCMEM ONETIME ONE Stop: 03/05/18 08:01 Last Admin: 03/05/18 08:06 Dose: 10 ml Spironolactone (Aldactone) 25 mg PO BID [facility] Last Admin: 03/05/18 09:11 Dose: 25 mg Warfarin Sodium (Coumadin) 2.5 mg PO DAILY@1600 [facility] Warfarin Sodium (Coumadin) 2.5 mg PO DAILY@1600 [facility] Last Admin: 03/05/18 18:30 Dose: 2.5 mg Warfarin Sodium (Coumadin) 5 mg PO ONETIME ONE Stop: 03/06/18 14:01 Last Admin: 03/06/18 13:59 Dose: 5 mg - Exam General: Alert, Cooperative, No Acute Distress Lungs: Decreased Breath Sounds, Wheezing. No: Rhonchi Cardiovascular: Regular Rate, No Murmurs, Irregular Rhythm GI/Abdominal Exam: Soft, Non-Tender, No Organomegaly, No Distention Extremities: Non-Tender, No Pedal Edema Skin: Warm, Dry - Problem List Review Problem List Initiated/Reviewed/Updated: Yes - My Orders Last 24 Hours: My Active Orders 03/07/18 11:21 Furosemide [Lasix] 40 mg IVPUSH NOW ONE 03/07/18 11:22 Warfarin [Coumadin] 2.5 mg PO ONETIME ONE 03/08/18 05:00 BASIC METABOLIC PANEL,BMP [CHEM] Timed INR,PT,PROTHROMBIN TIME [COAG] Timed - Plan Plan:: ASSESSMENT AND PLAN PNEUMONIA WITH SEPSIS-infection seems to be well controlled with current management, he is been afebrile with normalization of white blood cell count -Saline lock IV -Continue IV levofloxacin -Blood cultures pending ADRENAL INSUFFICIENCY-iatrogenic, secondary to long-term prednisone use ACUTE ON CHRONIC RENAL INSUFFICIENCY-renal function has improved with hydration -Closely monitor urine output and renal function CONGESTIVE HEART FAILURE/AORTIC STENOSIS-exacerbation secondary to fluid used for management of sepsis, he is responded to diuretic therapy with less shortness of breath and hypoxia -Furosemide IV 40mg now -Continue other CHF medications DELIRIUM-significantly improved since yesterday with less confusion and agitation -Melatonin 9 mg by mouth daily at bedtime -Depakote 250 mg by mouth twice daily ATRIAL FIBRILLATION-heart rate increased secondary to CHF exacerbation and now has improved with management of pulmonary edema and a single dose of digoxin -Cardiac monitoring MAINTENANCE ISSUES -DVT prophylaxis; current therapy with warfarin should provide adequate DVT prophylaxis -GI prophylaxis; not indicated -Madden catheter; not indicated -Nutrition; 2 g sodium diet -Nicotine dependence; not required CODE STATUS-FULL CODE ADMISSION STATUS-patient will be admitted to inpatient status, expect at least a 2 night hospital stay for evaluation and management of problems as outlined above. At the time of this admission I do not reasonably expected evaluation and management of this problem will require more than a 96 hour hospital stay. DISPOSITION-anticipate discharge to long term PRIMARY CARE PROVIDER-Dr. Coleman
[2018-03-07] MEDS ORDERED: Warfarin 2.5 MG Tab PO ONE (12:00)
[2018-03-07] MEDS ORDERED: Furosemide 40 MG/4 ML VIAL IVPUSH ONE (12:00)
[2018-03-07] MEDS: Levofloxacin/Dextrose 5%-Water 750 MG in Premix Bag 1 BAG IV SCH (17:57)
[2018-03-07] MEDS: Melatonin 3 MG Tab PO SCH (20:07)
[2018-03-07] MEDS: PARoxetine 20 MG Tab PO SCH (20:07)
[2018-03-08] MEDS: Albuterol 0.083% 2.5 MG/3 ML Neb Soln NEB PRN ×3 (01:47→21:51)
[2018-03-08] MEDS: Levothyroxine 112 MCG Tab PO SCH (09:00)
[2018-03-08] MEDS: Divalproex Sodium Delayed-Release 250 MG Tab.CR PO SCH (09:02)
[2018-03-08] MEDS: Potassium Chloride 20 MEQ Tab.ER PO SCH (09:02)
[2018-03-08] MEDS: predniSONE 5 MG Tab PO SCH (09:03)
[2018-03-08] MEDS: Aspirin 325 MG Tab.EC PO SCH (09:03)
[2018-03-08] MEDS: Sulfamethoxazole/Trimethoprim 800-160 MG Tab PO SCH (09:04)
[2018-03-08] MEDS: Gabapentin 300 MG Cap PO SCH ×3 (09:04→21:33)
[2018-03-08] MEDS: Montelukast 10 MG Tab PO SCH (09:05)
--- NOTE | 2018-03-08 12:53 | PCM.PN ---
- General Info Date of Service: 03/08/18 Subjective Update: Mr. Callaway is shown further improvement since yesterday with increased energy and strength. Vital signs have been stable and he has remained afebrile. Confusion and agitation have essentially resolved. Functional Status: Reports: Tolerating Diet, Ambulating, Urinating - Review of Systems General: Reports: Weakness. Denies: Fever, Chills Pulmonary: Reports: Shortness of Breath. Denies: Pleuritic Chest Pain, Cough, Sputum, Hemoptysis, Wheezing Cardiovascular: Reports: Dyspnea on Exertion. Denies: Chest Pain, Palpitations , Orthopnea, PND, Edema, Lightheadedness Gastrointestinal: Reports: No Symptoms - Patient Data Vitals - Most Recent: Last Vital Signs Temp 97.7 F 03/08/18 11:00 Pulse 87 03/08/18 11:00 Resp 18 03/08/18 11:00 BP 93/41 L 03/08/18 11:00 Pulse Ox 95 03/08/18 11:00 Weight - Most Recent: 195 lb 3.2 oz I&O - Last 24 Hours: Intake & Output 03/07/18 03/08/18 03/08/18 22:59 06:59 14:59 Intake Total 150 Output Total 400 50 Balance -250 -50 Lab Results Last 24 Hours: Laboratory Results - last 24 hr 03/08/18 03/08/18 Range/Units 04:20 04:20 PT 34.2 H (9.5-12.0) sec INR 3.33 H (0.80-1.20) Sodium 135 L (140-148) mmol/L Potassium 3.9 (3.6-5.2) mmol/L Chloride 97 L (100-108) mmol/L Carbon Dioxide 27 (21-32) mmol/L Anion Gap 14.9 H (5.0-14.0) mmol/L BUN 40 H (7-18) mg/dL Creatinine 1.5 H (0.8-1.3) mg/dL Est Cr Clr Drug Dosing 31.83 mL/min Estimated GFR (MDRD) 44 L (>60) Glucose 95 (74-106) mg/dL Calcium 9.1 (8.5-10.1) mg/dL Deep Results Last 24 Hours: Microbiology 03/08/18 01:43 Clostridium difficile (PCR) - Final Stool / Feces NEGATIVE CDIFF TOXIN 03/03/18 16:40 Aerobic Blood Culture - Preliminary Blood - Arm, Right NO GROWTH AFTER 4 DAYS Anaerobic Blood Culture - Preliminary NO GROWTH AFTER 4 DAYS 03/03/18 16:30 Aerobic Blood Culture - Preliminary Blood - Arm, Right NO GROWTH AFTER 4 DAYS Anaerobic Blood Culture - Preliminary NO GROWTH AFTER 4 DAYS Med Orders - Current: Current Medications Acetaminophen (Tylenol) 650 mg PO Q4H PRN PRN Reason: Pain (Mild 1-3)/fever Albuterol (Proventil Neb Soln) 2.5 mg NEB Q4H PRN PRN Reason: Shortness Of Breath/wheezing Last Admin: 03/08/18 06:20 Dose: 2.5 mg Aspirin (Ecotrin) 325 mg PO DAILY [facility] Last Admin: 03/08/18 09:03 Dose: 325 mg Azathioprine (Imuran) 50 mg PO DAILY [facility] Last Admin: 03/08/18 09:04 Dose: 50 mg Digoxin (Lanoxin) 250 mcg IVPUSH ONETIME ONE Last Admin: 03/05/18 17:54 Dose: 250 mcg [facility] Last Admin: 03/08/18 09:02 Dose: 250 mg Furosemide (Lasix) 40 mg PO BID [facility] Gabapentin (Neurontin) 300 mg PO TID [facility] Last Admin: 03/08/18 09:04 Dose: 300 mg Lactobacillus Rhamnosus (Culturelle) 1 cap PO BID [facility] Levofloxacin (Levaquin) 750 mg PO Q48H [facility] Levothyroxine Sodium (Levothyroxine) 112 mcg PO ACBRK [facility] Last Admin: 03/08/18 09:00 Dose: 112 mcg Magnesium Hydroxide (Milk Of Magnesia) 30 ml PO Q12H PRN PRN Reason: Constipation Melatonin (Melatonin) 9 mg PO BEDTIME [facility] Last Admin: 03/07/18 20:07 Dose: 9 mg Metoprolol Tartrate (Lopressor) 12.5 mg PO BID [facility] Last Admin: 03/07/18 20:07 Dose: 12.5 mg Montelukast Sodium (Singulair) 10 mg PO DAILY [facility] Last Admin: 03/08/18 09:05 Dose: 10 mg Ondansetron HCl (Zofran) 4 mg IV Q4H PRN PRN Reason: Nausea/Vomiting Paroxetine HCl (Paxil) 20 mg PO BEDTIME [facility] Last Admin: 03/07/18 20:07 Dose: 20 mg Polyethylene Glycol (Miralax) 17 gm PO DAILY PRN PRN Reason: Constipation Potassium Chloride (Klor-Con M20) 20 meq PO DAILY@0800 [facility] Last Admin: 03/08/18 09:02 Dose: 20 meq Prednisone (Prednisone) 5 mg PO DAILY@0800 [facility] Last Admin: 03/08/18 09:03 Dose: 5 mg Ranitidine HCl (Zantac) 150 mg PO BID [facility] Last Admin: 03/08/18 09:05 Dose: 150 mg Senna/Docusate Sodium (Senna Plus) 1 tab PO BID PRN PRN Reason: Constipation Sodium Chloride (Saline Flush) 10 ml FLUSH ASDIRECTED PRN PRN Reason: Keep Vein Open Terazosin HCl (Hytrin) 5 mg PO DAILY [facility] Last Admin: 03/07/18 08:05 Dose: Not Given Trimethoprim/Sulfamethoxazole (Septra Ds) 1 tab PO DAILY [facility] Last Admin: 03/08/18 09:04 Dose: 1 tab Discontinued Medications Albuterol/Ipratropium (Duoneb 3.0-0.5 Mg/3 Ml) 3 ml NEB ONETIME STA Stop: 03/04/18 23:05 Last Admin: 03/04/18 23:24 Dose: 3 ml Albuterol/Ipratropium (Duoneb 3.0-0.5 Mg/3 Ml) 3 ml NEB ONETIME STA Stop: 03/05/18 06:46 Last Admin: 03/05/18 07:09 Dose: 3 ml Digoxin (Lanoxin) 250 mcg IVPUSH ONETIME ONE Stop: 03/05/18 09:31 Last Admin: 03/05/18 08:50 Dose: 250 mcg Digoxin (Lanoxin) Confirm Administered Dose 500 mcg .ROUTE .STK-MED ONE Stop: 03/05/18 17:15 Last Admin: 03/05/18 17:52 Dose: Not Given Diphenhydramine HCl (Benadryl) 25 mg PO ONETIME ONE Stop: 03/05/18 03:46 Last Admin: 03/05/18 04:04 Dose: 25 mg Enoxaparin Sodium (Lovenox) 30 mg SUBCUT DAILY [facility] Furosemide (Lasix) 40 mg PO BIDMEALS [facility] Last Admin: 03/05/18 10:19 Dose: Not Given Furosemide (Lasix) 60 mg IVPUSH ONETIME ONE Stop: 03/04/18 23:15 Last Admin: 03/04/18 23:26 Dose: 60 mg Furosemide (Lasix) 60 mg IVPUSH ONETIME ONE Stop: 03/05/18 08:01 Last Admin: 03/05/18 08:06 Dose: 60 mg Furosemide (Lasix) 40 mg IVPUSH NOW ONE Stop: 03/05/18 20:01 Last Admin: 03/05/18 20:28 Dose: 40 mg Furosemide (Lasix) 40 mg IVPUSH NOW ONE Stop: 03/06/18 13:46 Last Admin: 03/06/18 13:59 Dose: 40 mg Furosemide (Lasix) 40 mg IVPUSH NOW ONE Stop: 03/07/18 12:01 Last Admin: 03/07/18 12:32 Dose: 40 mg Hydrocortisone Sodium Succinate (Solu-Cortef) 100 mg IVPUSH ONETIME ONE Stop: 03/03/18 18:53 Last Admin: 03/03/18 20:25 Dose: 100 mg Lactated Ringer's (Ringers, Lactated) 1,000 mls @ 500 mls/hr IV ASDIRECTED [facility] Last Admin: 03/03/18 16:33 Dose: 500 mls/hr Piperacillin Sod/Tazobactam (Sod 4.5 gm/ Sodium Chloride) 100 mls @ 200 mls/hr IV Q6H [facility] Piperacillin/Tazobactam/ (Dextrose 4.5 gm/ Premix) 100 mls @ 200 mls/hr IV Q6H [facility] Stop: 03/03/18 17:30 Last Admin: 03/03/18 16:57 Dose: 200 mls/hr Lactated Ringer's (Ringers, Lactated) 1,000 mls @ 125 mls/hr IV ASDIRECTED [facility] Last Admin: 03/04/18 08:26 Dose: 125 mls/hr Levofloxacin/Dextrose 750 mg/ (Premix) 150 mls @ 100 mls/hr IV ONETIME ONE Stop: 03/03/18 20:21 Last Admin: 03/03/18 20:27 Dose: 100 mls/hr Levofloxacin/Dextrose 500 mg/ (Premix) 100 mls @ 100 mls/hr IV Q48H [facility] Piperacillin Sod/Tazobactam (Sod 2.25 gm/ Sodium Chloride) 50 mls @ 100 mls/hr IV Q8H [facility] Stop: 03/05/18 10:00 Last Admin: 03/05/18 09:15 Dose: 100 mls/hr Lactated Ringer's (Ringers, Lactated) 1,000 mls @ 500 mls/hr IV .BOLUS [facility] Stop: 03/03/18 23:31 Last Admin: 03/03/18 22:43 Dose: 500 mls/hr Lactated Ringer's (Ringers, Lactated) 200 mls @ 200 mls/hr IV ONETIME ONE Stop: 03/05/18 04:44 Last Admin: 03/05/18 04:03 Dose: 200 mls/hr Piperacillin Sod/Tazobactam (Sod 2.25 gm/ Sodium Chloride) 50 mls @ 100 mls/hr IV Q6H [facility] Last Admin: 03/06/18 08:57 Dose: 100 mls/hr Levofloxacin/Dextrose 750 mg/ (Premix) 150 mls @ 100 mls/hr IV Q48H [facility] Last Admin: 03/07/18 17:57 Dose: 100 mls/hr Levofloxacin (Levaquin) 750 mg PO Q48H [facility] Lidocaine HCl (Xylocaine 2% Jelly) 10 ml MUCMEM ONETIME ONE Stop: 03/05/18 08:01 Last Admin: 03/05/18 08:06 Dose: 10 ml Spironolactone (Aldactone) 25 mg PO BID [facility] Last Admin: 03/05/18 09:11 Dose: 25 mg Warfarin Sodium (Coumadin) 2.5 mg PO DAILY@1600 [facility] Warfarin Sodium (Coumadin) 2.5 mg PO DAILY@1600 [facility] Last Admin: 03/05/18 18:30 Dose: 2.5 mg Warfarin Sodium (Coumadin) 5 mg PO ONETIME ONE Stop: 03/06/18 14:01 Last Admin: 03/06/18 13:59 Dose: 5 mg Warfarin Sodium (Coumadin) 2.5 mg PO ONETIME ONE Stop: 03/07/18 12:01 Last Admin: 03/07/18 12:32 Dose: 2.5 mg - Exam Quality Assessment: DVT Prophylaxis General: Alert, Oriented, Cooperative, No Acute Distress Lungs: Clear to Auscultation, Normal Respiratory Effort Cardiovascular: Regular Rate, No Murmurs, Irregular Rhythm GI/Abdominal Exam: Soft, Non-Tender, No Organomegaly, No Distention Extremities: Non-Tender, No Pedal Edema - Problem List Review Problem List Initiated/Reviewed/Updated: Yes - My Orders Last 24 Hours: My Active Orders 03/08/18 13:00 Lactobacillus Rhamnosus GG [Culturelle] 1 cap PO BID 03/08/18 21:00 Furosemide [Lasix] 40 mg PO BID 03/09/18 18:00 levoFLOXacin [Levaquin] 750 mg PO Q48H - Plan Plan:: ASSESSMENT AND PLAN PNEUMONIA WITH SEPSIS-infection seems to be well controlled with current management, he is been afebrile with normalization of white blood cell count -Saline lock IV -Discontinue IV levofloxacin, convert to oral dose -Blood cultures pending ADRENAL INSUFFICIENCY-iatrogenic, secondary to long-term prednisone use ACUTE ON CHRONIC RENAL INSUFFICIENCY-renal function has improved with hydration -Closely monitor urine output and renal function CONGESTIVE HEART FAILURE/AORTIC STENOSIS-exacerbation secondary to fluid used for management of sepsis, he is responded to diuretic therapy with less shortness of breath and hypoxia -Furosemide 40 mg by mouth twice daily -Continue other CHF medications DELIRIUM-significantly improved since yesterday with less confusion and agitation -Melatonin 9 mg by mouth daily at bedtime -Discontinue Depakote ATRIAL FIBRILLATION-heart rate increased secondary to CHF exacerbation and now has improved with management of pulmonary edema and a single dose of digoxin -Cardiac monitoring MAINTENANCE ISSUES -DVT prophylaxis; current therapy with warfarin should provide adequate DVT prophylaxis -GI prophylaxis; not indicated -Madden catheter; not indicated -Nutrition; 2 g sodium diet -Nicotine dependence; not required CODE STATUS-FULL CODE ADMISSION STATUS-patient will be admitted to inpatient status, expect at least a 2 night hospital stay for evaluation and management of problems as outlined above. At the time of this admission I do not reasonably expected evaluation and management of this problem will require more than a 96 hour hospital stay. DISPOSITION-anticipate discharge to [place] [facility] PRIMARY CARE PROVIDER-Dr. Coleman
[2018-03-08] MEDS ORDERED: Levofloxacin 250 MG Tab PO SCH (13:00)
[2018-03-08] MEDS: Terazosin 5 MG Cap PO SCH (13:16)
[2018-03-08] MEDS: Metoprolol Tartrate 25 MG Tab PO SCH ×2 (13:16→21:36)
[2018-03-08] MEDS: Lactobacillus Rhamnosus GG (Probiotic) Cap PO SCH ×2 (13:16→21:35)
[2018-03-08] MEDS: Furosemide 40 MG Tab PO SCH (21:32)
[2018-03-08] MEDS: Melatonin 3 MG Tab PO SCH (21:32)
[2018-03-08] MEDS: PARoxetine 20 MG Tab PO SCH (21:36)
[2018-03-09] MEDS: Divalproex Sodium Delayed-Release 250 MG Tab.CR PO SCH ×2 (08:22→16:36)
[2018-03-09] MEDS: Levothyroxine 112 MCG Tab PO SCH (08:22)
[2018-03-09] MEDS: Potassium Chloride 20 MEQ Tab.ER PO SCH (08:22)
[2018-03-09] MEDS: predniSONE 5 MG Tab PO SCH (08:22)
[2018-03-09] MEDS: Metoprolol Tartrate 25 MG Tab PO SCH ×2 (08:24→20:34)
[2018-03-09] MEDS: Furosemide 40 MG Tab PO SCH (08:24)
[2018-03-09] MEDS: Aspirin 325 MG Tab.EC PO SCH (08:24)
[2018-03-09] MEDS: Terazosin 5 MG Cap PO SCH (08:24)
[2018-03-09] MEDS: Montelukast 10 MG Tab PO SCH (08:25)
[2018-03-09] MEDS: Gabapentin 300 MG Cap PO SCH ×3 (08:25→20:33)
[2018-03-09] MEDS: Sulfamethoxazole/Trimethoprim 800-160 MG Tab PO SCH (08:25)
[2018-03-09] MEDS: Lactobacillus Rhamnosus GG (Probiotic) Cap PO SCH ×2 (08:26→20:33)
--- NOTE | 2018-03-09 12:29 | PCM.PN ---
- General Info Date of Service: 03/09/18 - Review of Systems General: Reports: Weakness Neurological: Reports: Confusion Systems Review Comment:: There was some difficulty with confusion and mild agitation overnight. Patient is very sleepy this morning at the time of my evaluation. He does not report any chest pain or abdominal pain. He does endorse that he feels short of breath. He has not had any fevers. Has not had anything to eat or take pills this morning. Chest x-ray showed increased cephalization and increased pulmonary vascular congestion. Urine sample not suggestive of infection. - Patient Data Vitals - Most Recent: Last Vital Signs Temp 36.4 C 03/09/18 10:57 Pulse 77 03/09/18 10:57 Resp 16 03/09/18 10:57 BP 90/47 L 03/09/18 10:57 Pulse Ox 94 L 03/09/18 10:57 Weight - Most Recent: 86.682 kg I&O - Last 24 Hours: Intake & Output 03/08/18 03/09/18 03/09/18 22:59 06:59 14:59 Output Total 2049 Balance -2049 Deep Results Last 24 Hours: Microbiology 03/03/18 16:40 Aerobic Blood Culture - Final Blood - Arm, Right NO GROWTH AFTER 5 DAYS Anaerobic Blood Culture - Final NO GROWTH AFTER 5 DAYS 03/03/18 16:30 Aerobic Blood Culture - Final Blood - Arm, Right NO GROWTH AFTER 5 DAYS Anaerobic Blood Culture - Final NO GROWTH AFTER 5 DAYS Med Orders - Current: Current Medications Acetaminophen (Tylenol) 650 mg PO Q4H PRN PRN Reason: Pain (Mild 1-3)/fever Albuterol (Proventil Neb Soln) 2.5 mg NEB Q4H PRN PRN Reason: Shortness Of Breath/wheezing Last Admin: 03/08/18 21:51 Dose: 2.5 mg Aspirin (Ecotrin) 325 mg PO DAILY [facility] Last Admin: 03/09/18 08:24 Dose: 325 mg Azathioprine (Imuran) 50 mg PO DAILY [facility] Last Admin: 03/09/18 08:24 Dose: 50 mg Divalproex Sodium (Divalproex Sodium) 250 mg PO BIDMEALS [facility] Last Admin: 03/09/18 08:22 Dose: 250 mg Furosemide (Lasix) 40 mg PO BID [facility] Last Admin: 03/09/18 08:24 Dose: 40 mg Gabapentin (Neurontin) 300 mg PO TID [facility] Last Admin: 03/09/18 08:25 Dose: 300 mg Lactobacillus Rhamnosus (Culturelle) 1 cap PO BID [facility] Last Admin: 03/09/18 08:26 Dose: 1 cap Levofloxacin (Levaquin) 750 mg PO Q48H [facility] Levothyroxine Sodium (Levothyroxine) 112 mcg PO ACBRK [facility] Last Admin: 03/09/18 08:22 Dose: 112 mcg Magnesium Hydroxide (Milk Of Magnesia) 30 ml PO Q12H PRN PRN Reason: Constipation Melatonin (Melatonin) 9 mg PO BEDTIME [facility] Last Admin: 03/08/18 21:32 Dose: 9 mg Metoprolol Tartrate (Lopressor) 12.5 mg PO BID [facility] Last Admin: 03/09/18 08:24 Dose: 12.5 mg Montelukast Sodium (Singulair) 10 mg PO DAILY [facility] Last Admin: 03/09/18 08:25 Dose: 10 mg Ondansetron HCl (Zofran) 4 mg IV Q4H PRN PRN Reason: Nausea/Vomiting Paroxetine HCl (Paxil) 20 mg PO BEDTIME [facility] Last Admin: 03/08/18 21:36 Dose: 20 mg Polyethylene Glycol (Miralax) 17 gm PO DAILY PRN PRN Reason: Constipation Potassium Chloride (Klor-Con M20) 20 meq PO DAILY@0800 [facility] Last Admin: 03/09/18 08:22 Dose: 20 meq Prednisone (Prednisone) 5 mg PO DAILY@0800 [facility] Last Admin: 03/09/18 08:22 Dose: 5 mg Ranitidine HCl (Zantac) 150 mg PO BID [facility] Last Admin: 03/09/18 08:25 Dose: 150 mg Senna/Docusate Sodium (Senna Plus) 1 tab PO BID PRN PRN Reason: Constipation Sodium Chloride (Saline Flush) 10 ml FLUSH ASDIRECTED PRN PRN Reason: Keep Vein Open Terazosin HCl (Hytrin) 5 mg PO DAILY [facility] Last Admin: 03/09/18 08:24 Dose: 5 mg Trimethoprim/Sulfamethoxazole (Septra Ds) 1 tab PO DAILY [facility] Last Admin: 03/09/18 08:25 Dose: 1 tab Discontinued Medications Albuterol/Ipratropium (Duoneb 3.0-0.5 Mg/3 Ml) 3 ml NEB ONETIME STA Stop: 03/04/18 23:05 Last Admin: 03/04/18 23:24 Dose: 3 ml Albuterol/Ipratropium (Duoneb 3.0-0.5 Mg/3 Ml) 3 ml NEB ONETIME STA Stop: 03/05/18 06:46 Last Admin: 03/05/18 07:09 Dose: 3 ml Digoxin (Lanoxin) 250 mcg IVPUSH ONETIME ONE Stop: 03/05/18 09:31 Last Admin: 03/05/18 08:50 Dose: 250 mcg Digoxin (Lanoxin) Confirm Administered Dose 500 mcg .ROUTE .STK-MED ONE Stop: 03/05/18 17:15 Last Admin: 03/05/18 17:52 Dose: Not Given Digoxin (Lanoxin) 250 mcg IVPUSH ONETIME ONE Stop: 03/05/18 17:04 Last Admin: 03/05/18 17:54 Dose: 250 mcg Diphenhydramine HCl (Benadryl) 25 mg PO ONETIME ONE Stop: 03/05/18 03:46 Last Admin: 03/05/18 04:04 Dose: 25 mg Divalproex Sodium (Divalproex Sodium) 250 mg PO BIDMEALS [facility] Last Admin: 03/08/18 09:02 Dose: 250 mg Divalproex Sodium (Divalproex Sodium) 250 mg PO BIDMEALS [facility] Enoxaparin Sodium (Lovenox) 30 mg SUBCUT DAILY [facility] Furosemide (Lasix) 40 mg PO BIDMEALS [facility] Last Admin: 03/05/18 10:19 Dose: Not Given Furosemide (Lasix) 60 mg IVPUSH ONETIME ONE Stop: 03/04/18 23:15 Last Admin: 03/04/18 23:26 Dose: 60 mg Furosemide (Lasix) 60 mg IVPUSH ONETIME ONE Stop: 03/05/18 08:01 Last Admin: 03/05/18 08:06 Dose: 60 mg Furosemide (Lasix) 40 mg IVPUSH NOW ONE Stop: 03/05/18 20:01 Last Admin: 03/05/18 20:28 Dose: 40 mg Furosemide (Lasix) 40 mg IVPUSH NOW ONE Stop: 03/06/18 13:46 Last Admin: 03/06/18 13:59 Dose: 40 mg Furosemide (Lasix) 40 mg IVPUSH NOW ONE Stop: 03/07/18 12:01 Last Admin: 03/07/18 12:32 Dose: 40 mg Hydrocortisone Sodium Succinate (Solu-Cortef) 100 mg IVPUSH ONETIME ONE Stop: 03/03/18 18:53 Last Admin: 03/03/18 20:25 Dose: 100 mg Lactated Ringer's (Ringers, Lactated) 1,000 mls @ 500 mls/hr IV ASDIRECTED [facility] Last Admin: 03/03/18 16:33 Dose: 500 mls/hr Piperacillin Sod/Tazobactam (Sod 4.5 gm/ Sodium Chloride) 100 mls @ 200 mls/hr IV Q6H [facility] Piperacillin/Tazobactam/ (Dextrose 4.5 gm/ Premix) 100 mls @ 200 mls/hr IV Q6H [facility] Stop: 03/03/18 17:30 Last Admin: 03/03/18 16:57 Dose: 200 mls/hr Lactated Ringer's (Ringers, Lactated) 1,000 mls @ 125 mls/hr IV ASDIRECTED [facility] Last Admin: 03/04/18 08:26 Dose: 125 mls/hr Levofloxacin/Dextrose 750 mg/ (Premix) 150 mls @ 100 mls/hr IV ONETIME ONE Stop: 03/03/18 20:21 Last Admin: 03/03/18 20:27 Dose: 100 mls/hr Levofloxacin/Dextrose 500 mg/ (Premix) 100 mls @ 100 mls/hr IV Q48H [facility] Piperacillin Sod/Tazobactam (Sod 2.25 gm/ Sodium Chloride) 50 mls @ 100 mls/hr IV Q8H [facility] Stop: 03/05/18 10:00 Last Admin: 03/05/18 09:15 Dose: 100 mls/hr Lactated Ringer's (Ringers, Lactated) 1,000 mls @ 500 mls/hr IV .BOLUS [facility] Stop: 03/03/18 23:31 Last Admin: 03/03/18 22:43 Dose: 500 mls/hr Lactated Ringer's (Ringers, Lactated) 200 mls @ 200 mls/hr IV ONETIME ONE Stop: 03/05/18 04:44 Last Admin: 03/05/18 04:03 Dose: 200 mls/hr Piperacillin Sod/Tazobactam (Sod 2.25 gm/ Sodium Chloride) 50 mls @ 100 mls/hr IV Q6H [facility] Last Admin: 03/06/18 08:57 Dose: 100 mls/hr Levofloxacin/Dextrose 750 mg/ (Premix) 150 mls @ 100 mls/hr IV Q48H [facility] Last Admin: 03/07/18 17:57 Dose: 100 mls/hr Levofloxacin (Levaquin) 750 mg PO Q48H [facility] Lidocaine HCl (Xylocaine 2% Jelly) 10 ml MUCMEM ONETIME ONE Stop: 03/05/18 08:01 Last Admin: 03/05/18 08:06 Dose: 10 ml Spironolactone (Aldactone) 25 mg PO BID [facility] Last Admin: 03/05/18 09:11 Dose: 25 mg Warfarin Sodium (Coumadin) 2.5 mg PO DAILY@1600 [facility] Warfarin Sodium (Coumadin) 2.5 mg PO DAILY@1600 [facility] Last Admin: 03/05/18 18:30 Dose: 2.5 mg Warfarin Sodium (Coumadin) 5 mg PO ONETIME ONE Stop: 03/06/18 14:01 Last Admin: 03/06/18 13:59 Dose: 5 mg Warfarin Sodium (Coumadin) 2.5 mg PO ONETIME ONE Stop: 03/07/18 12:01 Last Admin: 03/07/18 12:32 Dose: 2.5 mg - Exam Quality Assessment: Supplemental Oxygen General: Alert, No Acute Distress, Lethargic. No: Oriented, Cooperative Lungs: Clear to Auscultation, Normal Respiratory Effort Cardiovascular: Regular Rate, Regular Rhythm, Murmurs GI/Abdominal Exam: Normal Bowel Sounds, Soft, Distended Extremities: No Pedal Edema Skin: Warm, Dry Psy/Mental Status: Alert. No: Anxious, Agitated - Problem List Review Problem List Initiated/Reviewed/Updated: Yes - My Orders Last 24 Hours: My Active Orders 03/09/18 12:27 TROPONIN I [CHEM] Routine 03/10/18 05:00 BASIC METABOLIC PANEL,BMP [CHEM] Timed CBC W/O DIFF,HEMOGRAM [HEME] Timed (1) - Plan Plan:: ASSESSMENT AND PLAN PNEUMONIA WITH SEPSIS - infection seems to be well controlled with current management, he is been afebrile with normalization of white blood cell count -Saline lock IV -Continue levofloxacin -Blood cultures pending CONGESTIVE HEART FAILURE/AORTIC STENOSIS - he had improved with diuresis a couple of days ago but now is showing increased evidence for additional volume overload. I suspect that the excess fluid is the cause for his increased somnolence and weakness today. -Furosemide 40 mg IV this afternoon and reassess in the morning -Continue other CHF medications ADRENAL INSUFFICIENCY - iatrogenic, secondary to long-term prednisone use vital signs stable other than borderline low blood pressures.. ACUTE ON CHRONIC RENAL INSUFFICIENCY - renal function has continued slow improvement with above management. -Closely monitor urine output and renal function DELIRIUM - improved over the weekend but worsened overnight, probably secondary to the excess fluid and poor night's sleep. -Melatonin 9 mg by mouth daily at bedtime -continue Depakote ATRIAL FIBRILLATION - heart rate has been borderline tachycardic but overall fairly well-controlled. -Cardiac monitoring MAINTENANCE ISSUES -DVT prophylaxis; current therapy with warfarin should provide adequate DVT prophylaxis -GI prophylaxis; not indicated -Madden catheter; not indicated -Nutrition; 2 g sodium diet DISPOSITION - [facility] Hardy Sauceda M.D.
--- NOTE | 2018-03-09 14:49 | CR ---
CHEST: Portable CLINICAL HISTORY:Hypoxia COMPARISON:Multiple recent studies FINDINGS: Heart is enlarged. Pulmonary vascularity is cephalized. The there is persistent perihilar infiltrates bilaterally. Current study is more similar to 03/03/2018. Impression: Persistent perihilar infiltrates Vascular cephalization is increased since prior study. This may represent some pulmonary venous hyper tension with CHF
[2018-03-09] MEDS ORDERED: Furosemide 40 MG/4 ML VIAL IVPUSH ONE (16:00)
[2018-03-09] MEDS ORDERED: Divalproex Sodium Delayed-Release 250 MG Tab.CR PO SCH (17:44)
[2018-03-09] MEDS ORDERED: Levofloxacin 250 MG Tab PO SCH (18:00)
[2018-03-09] MEDS: Melatonin 3 MG Tab PO SCH (20:33)
[2018-03-09] MEDS: PARoxetine 20 MG Tab PO SCH (20:39)
[2018-03-10] MEDS: Albuterol 0.083% 2.5 MG/3 ML Neb Soln NEB PRN ×2 (02:22→21:36)
[2018-03-10] MEDS: Levothyroxine 112 MCG Tab PO SCH (08:48)
[2018-03-10] MEDS: Divalproex Sodium Delayed-Release 250 MG Tab.CR PO SCH ×2 (08:49→16:18)
[2018-03-10] MEDS: Potassium Chloride 20 MEQ Tab.ER PO SCH (08:49)
[2018-03-10] MEDS: Aspirin 325 MG Tab.EC PO SCH (08:50)
[2018-03-10] MEDS: predniSONE 5 MG Tab PO SCH (08:50)
[2018-03-10] MEDS: Lactobacillus Rhamnosus GG (Probiotic) Cap PO SCH ×2 (08:50→21:26)
[2018-03-10] MEDS: Sulfamethoxazole/Trimethoprim 800-160 MG Tab PO SCH (08:51)
[2018-03-10] MEDS: Montelukast 10 MG Tab PO SCH (08:51)
[2018-03-10] MEDS: Gabapentin 300 MG Cap PO SCH ×3 (08:52→21:29)
[2018-03-10] MEDS ORDERED: Furosemide 40 MG/4 ML VIAL IVPUSH ONE ×3 (10:00→18:00)
[2018-03-10] MEDS ORDERED: Potassium Chloride 20 MEQ Tab.ER PO ONE (10:00)
[2018-03-10] MEDS: Terazosin 5 MG Cap PO SCH (12:17)
[2018-03-10] MEDS: Metoprolol Tartrate 25 MG Tab PO SCH ×2 (12:17→21:26)
--- NOTE | 2018-03-10 14:22 | PCM.PN ---
- General Info Date of Service: 03/10/18 Functional Status: Reports: Pain Controlled, Tolerating Diet - Review of Systems General: Reports: Weakness. Denies: Fever Pulmonary: Reports: Shortness of Breath Systems Review Comment:: There were no acute events overnight. The patient was more alert and interactive yesterday evening after a nap and some diuresis. He feels weak but otherwise feels okay. He thinks her shortness of breath is better but not back to baseline. No complaints of abdominal pain or chest pain. Appetite slowly improving. Still very weak. - Patient Data Vitals - Most Recent: Last Vital Signs Temp 36.6 C 03/10/18 14:09 Pulse 85 03/10/18 14:09 Resp 18 03/10/18 14:09 BP 103/66 03/10/18 14:09 Pulse Ox 97 03/10/18 14:09 Weight - Most Recent: 84.005 kg I&O - Last 24 Hours: Intake & Output 03/09/18 03/10/18 03/10/18 22:59 06:59 14:59 Intake Total 120 660 Output Total 725 300 Balance -725 -180 660 Lab Results Last 24 Hours: Laboratory Results - last 24 hr 03/09/18 03/10/18 03/10/18 Range/Units 14:00 05:00 05:00 WBC 6.4 (4.5-11.0) K/uL RBC 3.05 L (4.30-5.90) M/uL Hgb 9.9 L (12.0-15.0) g/dL Hct 29.6 L (40.0-54.0) % MCV 97 (80-98) fL MCH 33 H (27-31) pg MCHC 33 (32-36) % Plt Count 153 (150-400) K/uL PT (9.5-12.0) sec INR (0.80-1.20) Sodium 140 (140-148) mmol/L Potassium 3.3 L (3.6-5.2) mmol/L Chloride 102 (100-108) mmol/L Carbon Dioxide 29 (21-32) mmol/L Anion Gap 12.3 (5.0-14.0) mmol/L BUN 37 H (7-18) mg/dL Creatinine 1.4 H (0.8-1.3) mg/dL Est Cr Clr Drug Dosing 34.10 mL/min Estimated GFR (MDRD) 48 L (>60) Glucose 91 (74-106) mg/dL Calcium 8.8 (8.5-10.1) mg/dL Urine Color Yellow Urine Appearance Slightly cloudy Urine pH 5.0 (4.5-8.0) Ur Specific [place] 1.015 (1.008-1.030) Urine Protein Negative (NEGATIVE) mg/dL Urine Glucose (UA) Normal (NEGATIVE) mg/dL Urine Ketones Negative (NEGATIVE) mg/dL Urine Occult Blood Moderate (NEGATIVE) Urine Nitrite Negative (NEGAITVE) Urine Bilirubin Negative (NEGATIVE) Urine Urobilinogen Normal (NORMAL) mg/dL Ur Leukocyte Esterase Small (NEGATIVE) Urine RBC 5-10 H (0-5) Urine WBC 0-5 (0-5) Ur Epithelial Cells Not seen Amorphous Sediment Rare Urine Bacteria Few Urine Mucus Not seen Urine Other See note 03/10/18 Range/Units 05:00 WBC (4.5-11.0) K/uL RBC (4.30-5.90) M/uL Hgb (12.0-15.0) g/dL Hct (40.0-54.0) % MCV (80-98) fL MCH (27-31) pg MCHC (32-36) % Plt Count (150-400) K/uL PT 33.8 H (9.5-12.0) sec INR 3.29 H (0.80-1.20) Sodium (140-148) mmol/L Potassium (3.6-5.2) mmol/L Chloride (100-108) mmol/L Carbon Dioxide (21-32) mmol/L Anion Gap (5.0-14.0) mmol/L BUN (7-18) mg/dL Creatinine (0.8-1.3) mg/dL Est Cr Clr Drug Dosing mL/min Estimated GFR (MDRD) (>60) Glucose (74-106) mg/dL Calcium (8.5-10.1) mg/dL Urine Color Urine Appearance Urine pH (4.5-8.0) Ur Specific [place] (1.008-1.030) Urine Protein (NEGATIVE) mg/dL Urine Glucose (UA) (NEGATIVE) mg/dL Urine Ketones (NEGATIVE) mg/dL Urine Occult Blood (NEGATIVE) Urine Nitrite (NEGAITVE) Urine Bilirubin (NEGATIVE) Urine Urobilinogen (NORMAL) mg/dL Ur Leukocyte Esterase (NEGATIVE) Urine RBC (0-5) Urine WBC (0-5) Ur Epithelial Cells Amorphous Sediment Urine Bacteria Urine Mucus Urine Other Med Orders - Current: Current Medications Acetaminophen (Tylenol) 650 mg PO Q4H PRN PRN Reason: Pain (Mild 1-3)/fever Albuterol (Proventil Neb Soln) 2.5 mg NEB Q4H PRN PRN Reason: Shortness Of Breath/wheezing Last Admin: 03/10/18 02:22 Dose: 2.5 mg Aspirin (Ecotrin) 325 mg PO DAILY [facility] Last Admin: 03/10/18 08:50 Dose: 325 mg Azathioprine (Imuran) 50 mg PO DAILY [facility] Last Admin: 03/10/18 08:51 Dose: 50 mg Divalproex Sodium (Divalproex Sodium) 250 mg PO BIDMEALS [facility] Last Admin: 03/10/18 08:49 Dose: 250 mg Gabapentin (Neurontin) 300 mg PO TID [facility] Last Admin: 03/10/18 08:52 Dose: 300 mg Lactobacillus Rhamnosus (Culturelle) 1 cap PO BID [facility] Last Admin: 03/10/18 08:50 Dose: 1 cap Levofloxacin (Levaquin) 750 mg PO Q48H [facility] Last Admin: 03/09/18 17:58 Dose: 750 mg Levothyroxine Sodium (Levothyroxine) 112 mcg PO ACBRK [facility] Last Admin: 03/10/18 08:48 Dose: 112 mcg Magnesium Hydroxide (Milk Of Magnesia) 30 ml PO Q12H PRN PRN Reason: Constipation Melatonin (Melatonin) 9 mg PO BEDTIME [facility] Last Admin: 03/09/18 20:33 Dose: 9 mg Metoprolol Tartrate (Lopressor) 12.5 mg PO BID [facility] Last Admin: 03/10/18 12:17 Dose: 12.5 mg Montelukast Sodium (Singulair) 10 mg PO DAILY [facility] Last Admin: 03/10/18 08:51 Dose: 10 mg Ondansetron HCl (Zofran) 4 mg IV Q4H PRN PRN Reason: Nausea/Vomiting Paroxetine HCl (Paxil) 20 mg PO BEDTIME [facility] Last Admin: 03/09/18 20:39 Dose: 20 mg Polyethylene Glycol (Miralax) 17 gm PO DAILY PRN PRN Reason: Constipation Potassium Chloride (Klor-Con M20) 20 meq PO DAILY@0800 [facility] Last Admin: 03/10/18 08:49 Dose: 20 meq Prednisone (Prednisone) 5 mg PO DAILY@0800 [facility] Last Admin: 03/10/18 08:50 Dose: 5 mg Ranitidine HCl (Zantac) 150 mg PO BID [facility] Last Admin: 03/10/18 08:51 Dose: 150 mg Senna/Docusate Sodium (Senna Plus) 1 tab PO BID PRN PRN Reason: Constipation Sodium Chloride (Saline Flush) 10 ml FLUSH ASDIRECTED PRN PRN Reason: Keep Vein Open Terazosin HCl (Hytrin) 5 mg PO DAILY [facility] Last Admin: 03/10/18 12:17 Dose: 5 mg Trimethoprim/Sulfamethoxazole (Septra Ds) 1 tab PO DAILY [facility] Last Admin: 03/10/18 08:51 Dose: 1 tab Discontinued Medications Albuterol/Ipratropium (Duoneb 3.0-0.5 Mg/3 Ml) 3 ml NEB ONETIME STA Stop: 03/04/18 23:05 Last Admin: 03/04/18 23:24 Dose: 3 ml Albuterol/Ipratropium (Duoneb 3.0-0.5 Mg/3 Ml) 3 ml NEB ONETIME STA Stop: 03/05/18 06:46 Last Admin: 03/05/18 07:09 Dose: 3 ml Digoxin (Lanoxin) 250 mcg IVPUSH ONETIME ONE Stop: 03/05/18 09:31 Last Admin: 03/05/18 08:50 Dose: 250 mcg Digoxin (Lanoxin) Confirm Administered Dose 500 mcg .ROUTE .STK-MED ONE Stop: 03/05/18 17:15 Last Admin: 03/05/18 17:52 Dose: Not Given Digoxin (Lanoxin) 250 mcg IVPUSH ONETIME ONE Stop: 03/05/18 17:04 Last Admin: 03/05/18 17:54 Dose: 250 mcg Diphenhydramine HCl (Benadryl) 25 mg PO ONETIME ONE Stop: 03/05/18 03:46 Last Admin: 03/05/18 04:04 Dose: 25 mg [facility] Last Admin: 03/08/18 09:02 Dose: 250 mg Divalproex Sodium (Divalproex Sodium) 250 mg PO BIDMEALS [facility] Enoxaparin Sodium (Lovenox) 30 mg SUBCUT DAILY [facility] Furosemide (Lasix) 40 mg PO BIDMEALS [facility] Last Admin: 03/05/18 10:19 Dose: Not Given Furosemide (Lasix) 60 mg IVPUSH ONETIME ONE Stop: 03/04/18 23:15 Last Admin: 03/04/18 23:26 Dose: 60 mg Furosemide (Lasix) 60 mg IVPUSH ONETIME ONE Stop: 03/05/18 08:01 Last Admin: 03/05/18 08:06 Dose: 60 mg Furosemide (Lasix) 40 mg IVPUSH NOW ONE Stop: 03/05/18 20:01 Last Admin: 03/05/18 20:28 Dose: 40 mg Furosemide (Lasix) 40 mg IVPUSH NOW ONE Stop: 03/06/18 13:46 Last Admin: 03/06/18 13:59 Dose: 40 mg Furosemide (Lasix) 40 mg IVPUSH NOW ONE Stop: 03/07/18 12:01 Last Admin: 03/07/18 12:32 Dose: 40 mg Furosemide (Lasix) 40 mg PO BID [facility] Last Admin: 03/09/18 08:24 Dose: 40 mg Furosemide (Lasix) 40 mg IVPUSH ONETIME ONE Stop: 03/09/18 16:01 Last Admin: 03/09/18 16:29 Dose: 40 mg Furosemide (Lasix) 40 mg IVPUSH ONETIME ONE Stop: 03/10/18 10:01 Last Admin: 03/10/18 12:18 Dose: 40 mg Hydrocortisone Sodium Succinate (Solu-Cortef) 100 mg IVPUSH ONETIME ONE Stop: 03/03/18 18:53 Last Admin: 03/03/18 20:25 Dose: 100 mg Lactated Ringer's (Ringers, Lactated) 1,000 mls @ 500 mls/hr IV ASDIRECTED [facility] Last Admin: 03/03/18 16:33 Dose: 500 mls/hr Piperacillin Sod/Tazobactam (Sod 4.5 gm/ Sodium Chloride) 100 mls @ 200 mls/hr IV Q6H [facility] Piperacillin/Tazobactam/ (Dextrose 4.5 gm/ Premix) 100 mls @ 200 mls/hr IV Q6H [facility] Stop: 03/03/18 17:30 Last Admin: 03/03/18 16:57 Dose: 200 mls/hr Lactated Ringer's (Ringers, Lactated) 1,000 mls @ 125 mls/hr IV ASDIRECTED [facility] Last Admin: 03/04/18 08:26 Dose: 125 mls/hr Levofloxacin/Dextrose 750 mg/ (Premix) 150 mls @ 100 mls/hr IV ONETIME ONE Stop: 03/03/18 20:21 Last Admin: 03/03/18 20:27 Dose: 100 mls/hr Levofloxacin/Dextrose 500 mg/ (Premix) 100 mls @ 100 mls/hr IV Q48H [facility] Piperacillin Sod/Tazobactam (Sod 2.25 gm/ Sodium Chloride) 50 mls @ 100 mls/hr IV Q8H [facility] Stop: 03/05/18 10:00 Last Admin: 03/05/18 09:15 Dose: 100 mls/hr Lactated Ringer's (Ringers, Lactated) 1,000 mls @ 500 mls/hr IV .BOLUS [facility] Stop: 03/03/18 23:31 Last Admin: 03/03/18 22:43 Dose: 500 mls/hr Lactated Ringer's (Ringers, Lactated) 200 mls @ 200 mls/hr IV ONETIME ONE Stop: 03/05/18 04:44 Last Admin: 03/05/18 04:03 Dose: 200 mls/hr Piperacillin Sod/Tazobactam (Sod 2.25 gm/ Sodium Chloride) 50 mls @ 100 mls/hr IV Q6H [facility] Last Admin: 03/06/18 08:57 Dose: 100 mls/hr Levofloxacin/Dextrose 750 mg/ (Premix) 150 mls @ 100 mls/hr IV Q48H [facility] Last Admin: 03/07/18 17:57 Dose: 100 mls/hr Levofloxacin (Levaquin) 750 mg PO Q48H [facility] Lidocaine HCl (Xylocaine 2% Jelly) 10 ml MUCMEM ONETIME ONE Stop: 03/05/18 08:01 Last Admin: 03/05/18 08:06 Dose: 10 ml Potassium Chloride (Klor-Con M20) 20 meq PO ONETIME ONE Stop: 03/10/18 10:01 Last Admin: 03/10/18 12:18 Dose: 20 meq Spironolactone (Aldactone) 25 mg PO BID [facility] Last Admin: 03/05/18 09:11 Dose: 25 mg Warfarin Sodium (Coumadin) 2.5 mg PO DAILY@1600 [facility] Warfarin Sodium (Coumadin) 2.5 mg PO DAILY@1600 [facility] Last Admin: 03/05/18 18:30 Dose: 2.5 mg Warfarin Sodium (Coumadin) 5 mg PO ONETIME ONE Stop: 03/06/18 14:01 Last Admin: 03/06/18 13:59 Dose: 5 mg Warfarin Sodium (Coumadin) 2.5 mg PO ONETIME ONE Stop: 03/07/18 12:01 Last Admin: 03/07/18 12:32 Dose: 2.5 mg - Exam Quality Assessment: Supplemental Oxygen General: Alert, Oriented, Cooperative, No Acute Distress Lungs: Normal Respiratory Effort, Crackles (rare left lung base) Cardiovascular: Regular Rate, Regular Rhythm GI/Abdominal Exam: Soft, No Distention Extremities: Pedal Edema (mild bilateral ankle edema) Skin: Warm, Dry Psy/Mental Status: Alert, Normal Affect - Problem List Review Problem List Initiated/Reviewed/Updated: Yes - My Orders Last 24 Hours: My Active Orders 03/10/18 14:20 Furosemide [Lasix] 40 mg IVPUSH ONETIME ONE 03/11/18 05:00 BASIC METABOLIC PANEL,BMP [CHEM] Timed CBC W/O DIFF,HEMOGRAM [HEME] Timed (1) INR,PT,PROTHROMBIN TIME [COAG] Timed 03/11/18 07:00 DC Madden Catheter [Urinary Catheter Removal] [RC] Per Unit Routine - Plan Plan:: ASSESSMENT AND PLAN PNEUMONIA WITH SEPSIS - infection seems to be well controlled with current management, he is been afebrile with normalization of white blood cell count -Saline lock IV -Continue levofloxacin -Blood cultures pending CONGESTIVE HEART FAILURE/AORTIC STENOSIS - improvement since yesterday with diuresis and still some ongoing evidence for extra fluid that can be removed. -Furosemide 40 mg IV twice today -Continue other CHF medications ADRENAL INSUFFICIENCY - iatrogenic, secondary to long-term prednisone use vital signs stable other than borderline low blood pressures.. ACUTE ON CHRONIC RENAL INSUFFICIENCY - renal function has continued slow improvement with above management. -Closely monitor urine output and renal function DELIRIUM - seems to be steadily improving. -Melatonin 9 mg by mouth daily at bedtime -continue Depakote ATRIAL FIBRILLATION - heart rate has been borderline tachycardic but overall fairly well-controlled. -Cardiac monitoring MAINTENANCE ISSUES -DVT prophylaxis; current therapy with warfarin should provide adequate DVT prophylaxis -GI prophylaxis; not indicated -Madden catheter; not indicated -Nutrition; 2 g sodium diet DISPOSITION - anticipate discharge to snf after the hospital stay, hopefully tomorrow if stable overnight Hardy Sauceda M.D.
[2018-03-10] MEDS: Melatonin 3 MG Tab PO SCH (21:28)
[2018-03-10] MEDS: PARoxetine 20 MG Tab PO SCH (21:29)
[2018-03-10] MEDS ORDERED: Lidocaine 2% Jelly 10 ML Urojet MUCMEM ONE (22:07)
[2018-03-10] MEDS ORDERED: Bacitracin Oint 1 GM U/D Packet TOP PRN (22:08)
--- NOTE | 2018-03-10 22:35 | PCM.SN ---
- Free Text/Narrative Note: time: 22:07 call from [address] [place] [address] Nursing : concerns of bladder pain and blood at end of penis. O: blood on tip of penis from grant cath. A: indwelling grant cath P: urojet lidocaine for comfort, apply bacitracin to penis plan on removing grant cath in am. continue present plan of care
[2018-03-11] MEDS: Levothyroxine 112 MCG Tab PO SCH (07:42)
[2018-03-11] MEDS: predniSONE 5 MG Tab PO SCH (08:15)
[2018-03-11] MEDS: Potassium Chloride 20 MEQ Tab.ER PO SCH (08:16)
[2018-03-11] MEDS: Divalproex Sodium Delayed-Release 250 MG Tab.CR PO SCH (08:16)
[2018-03-11] MEDS: Furosemide 40 MG Tab PO SCH ×2 (08:22→13:16)
[2018-03-11] MEDS: Lactobacillus Rhamnosus GG (Probiotic) Cap PO SCH (09:54)
[2018-03-11] MEDS: Aspirin 325 MG Tab.EC PO SCH (09:54)
[2018-03-11] MEDS: Terazosin 5 MG Cap PO SCH (09:55)
[2018-03-11] MEDS: Gabapentin 300 MG Cap PO SCH ×2 (09:57→13:16)
[2018-03-11] MEDS: Sulfamethoxazole/Trimethoprim 800-160 MG Tab PO SCH (09:57)
[2018-03-11] MEDS: Montelukast 10 MG Tab PO SCH (09:57)
[2018-03-11 10:56] VITALS: BP 108/56
[2018-03-11] MEDS: Metoprolol Tartrate 25 MG Tab PO SCH (10:58)
--- NOTE | 2018-03-11 11:47 | PCM.DCSUM1 ---
Discharge Summary - Hospital Course Brief History: 87-year-old male with history of systolic congestive heart failure, stage III chronic kidney disease and chronic atrial fibrillation with warfarin therapy who presented with weakness and lethargy. He was admitted for management of right lower lung pneumonia with sepsis and acute kidney injury. Diagnosis: Stroke: No - Discharge Data Discharge Date: 03/11/18 Discharge Disposition: DC/Tfer to SNF 03 Condition: Good - Discharge Diagnosis/Problem(s) (1) Right lower lobe pneumonia SNOMED Code(s): 571805506 ICD Code: J18.1 - LOBAR PNEUMONIA, UNSPECIFIED ORGANISM Status: Acute Current Visit: Yes Qualifiers: Pneumonia type: due to unspecified organism Qualified Code(s): J18.1 - Lobar pneumonia, unspecified organism (2) Sepsis SNOMED Code(s): 65628668 ICD Code: A41.9 - SEPSIS, UNSPECIFIED ORGANISM Status: Acute Current Visit: Yes Qualifiers: Sepsis type: sepsis due to unspecified organism Qualified Code(s): A41.9 - Sepsis, unspecified organism (3) [id number] kidney injury SNOMED Code(s): 463182014 ICD Code: N17.9 - ACUTE KIDNEY FAILURE, UNSPECIFIED; N18.9 - CHRONIC KIDNEY DISEASE, UNSPECIFIED Status: Acute Current Visit: Yes Qualifiers: Chronic kidney disease stage: stage 3 (moderate) (4) Hypokalemia SNOMED Code(s): 13696938 ICD Code: E87.6 - HYPOKALEMIA Status: Acute Current Visit: Yes (5) Acute systolic congestive heart failure SNOMED Code(s): 925374128, 306368049 ICD Code: I50.21 - ACUTE SYSTOLIC (CONGESTIVE) HEART FAILURE Status: Chronic Current Visit: No (6) Severe aortic stenosis SNOMED Code(s): 85254552 ICD Code: I35.0 - NONRHEUMATIC AORTIC (VALVE) STENOSIS Status: Chronic Current Visit: No (7) Chronic atrial fibrillation SNOMED Code(s): 145123815 ICD Code: I48.2 - CHRONIC ATRIAL FIBRILLATION Status: Chronic Current Visit: No - Patient Summary/Data Consults: Consultations 03/03/18 18:52 PT Evaluation and Treatment [CONS] Routine Please Evaluate and Treat. PT Reason for Consult: Weakness This query below is only for informational purposes and is not editable. Hospital Course: Leobardo presented to the emergency room with weakness and lethargy. Workup in the emergency room revealed evidence for pneumonia as well as sepsis and acute kidney injury. He was admitted to the hospital after being started on broad- spectrum antibiotics and he did receive aggressive IV fluids. He did require supplemental oxygen for management of the pneumonia. During the first 24 hours of the hospital stay he had difficulty with a rapid ventricular response to his chronic atrial fibrillation. His oxygenation remained somewhat tenuous though nasal cannula was able to provide sufficient oxygen. Kidney function was still significantly decreased morning after admission. Over the next 24 hours he did show some signs of improvement with stabilization of his oxygenation. His heart rate did eventually slow down. Unfortunately he developed difficulty with delirium and required doses medication to help stabilize his mood. Over the next day he had further improvement with resolution of his sepsis. Oxygenation status had stabilized and started to improve. He was showing some signs of volume overload from his volume resuscitation and did receive several doses of IV diuretics. He was more alert and interactive and less confused. Kidney function had started to improve. The next 24 hours soft further improvement in his condition with improving mental status as well as energy and activity. Respiratory status showed further improvement as did his kidney function. His cardiac function remained stable. Unfortunately on hospital day 5 he started to develop increasing lethargy and increasing shortness of breath as well as hypoxia. By the morning of 5 days 6 he was very lethargic and more hypoxic than he had been. At the time of the decline he had not had any fevers and seem to be doing well from an infectious standpoint. Repeat chest x-ray suggested volume overload with pulmonary edema. Urine sample did not suggest infection. He received additional doses of IV furosemide and did fortunately respond with improving mental status. His oxygenation improved further over the next couple of days to the point that he was weaned off the supplemental oxygen. He has had slow but steady improvement in his kidney function he is now back to his baseline kidney function. His delirium has resolved. Heart rate has been stable and in the normal range. Blood pressures have been on the lower side of normal but have been stable in the 90s and 100s for several days. He has tolerated receiving his oral medications despite these lower blood pressures. At this point I believe he is safe for hospital discharge. Because of his acute generalized weakness I think he would be best served by subacute rehabilitation. He will be discharged to the long term for subacute rehabilitation with physical and occupational therapy. - Patient Instructions Diet: Low Sodium Activity: As Tolerated Showering/Bathing: May Shower Notify Provider of: Fever, Increased Pain Other/Special Instructions: 1. You were in the hospital for management of right lower lung pneumonia with sepsis syndrome. Your hospital stay was complicated by congestive heart failure as well as confusion and hypokalemia. Your condition has improved with antibiotic therapy and diuretic management for volume overload. You have completed sufficient antibiotic therapy at this time. 2. Referral to physical and occupational therapy for strengthening. 3. Check INR on Friday - Dx: warfarin therapy with chronic atrial fibrillation. 4. Code status - full code. 5. Hold warfarin Friday and , recheck INR on Friday as listed above but I would anticipate restarting warfarin on Friday. 6. Seek medical attention if you develop fever greater than 101, you have severe shortness of breath or if you develop chest pain. - Discharge Plan *PRESCRIPTION DRUG MONITORING PROGRAM REVIEWED*: Not Applicable *COPY OF PRESCRIPTION DRUG MONITORING REPORT IN PATIENT LUIS ALBERTO: Not Applicable Home Medications: Home Meds Gabapentin [Neurontin] 300 mg PO TID 03/14/14 [History] Levothyroxine 112 mcg PO ACBRK 03/14/14 [History] PARoxetine [Paxil] 20 mg PO BEDTIME 03/14/14 [History] Ranitidine [Zantac] 150 mg PO BID 03/14/14 [History] Albuterol Sulfate [Albuterol Sulfate HFA] 2 puff INH Q4H PRN 06/01/14 [History] [place]ley-3/DHA/Epa/Fish Oil [Fish Oil Dr 500 mg Softgel] 1,000 mg PO DAILY [History] Sulfamethoxazole/Trimethoprim [Bactrim Ds Tablet] 1 tab PO DAILY 06/01/14 [ History] Terazosin [Hytrin] 5 mg PO DAILY 06/01/14 [History] Vitamin B Complex [B Complex] 2 tab PO BID 06/01/14 [History] Montelukast [Singulair] 10 mg PO DAILY 10/16/17 [History] Aspirin 325 mg PO DAILY 11/07/17 [History] Metoprolol Tartrate 12.5 mg PO BID 11/07/17 [History] Vitamin E 400 unit PO DAILY 11/07/17 [History] azaTHIOprine [Imuran] 50 mg PO DAILY 11/07/17 [History] predniSONE [Prednisone] 5 mg PO DAILY 11/07/17 [History] Furosemide [Lasix] 40 mg PO BID #60 tablet 11/09/17 [Rx] Potassium Chloride [Klor-Con M20] 20 meq PO BID 12/26/17 [History] Spironolactone [Aldactone] 25 mg PO BID 03/03/18 [History] Warfarin [Coumadin] 2.5 mg PO DAILY 03/03/18 [History] Patient Handouts: Community-Acquired Pneumonia, Adult Referrals: Sander Coleman MD [Primary Care Provider] - (f/u as needed after the hospital stay ) - Discharge Summary/Plan Comment DC Time >30 min.: Yes (50 - new long term discharge) - Patient Data Vitals - Most Recent: Last Vital Signs Temp 36.5 C 03/11/18 10:55 Pulse 67 03/11/18 10:58 Resp 16 03/11/18 10:55 BP 108/56 L 03/11/18 10:58 Pulse Ox 94 L 03/11/18 10:55 Weight - Most Recent: 82.374 kg I&O - Last 24 hours: Intake & Output 03/10/18 03/11/18 03/11/18 22:59 06:59 14:59 Intake Total 360 540 Output Total 300 100 Balance 60 440 Lab Results - Last 24 hrs: Laboratory Results - last 24 hr 03/11/18 03/11/18 03/11/18 Range/Units 05:30 05:30 05:30 WBC 5.8 (4.5-11.0) K/uL RBC 3.08 L (4.30-5.90) M/uL Hgb 10.1 L (12.0-15.0) g/dL Hct 30.0 L (40.0-54.0) % MCV 97 (80-98) fL MCH 33 H (27-31) pg MCHC 34 (32-36) % Plt Count 161 (150-400) K/uL PT 35.3 H (9.5-12.0) sec INR 3.44 H (0.80-1.20) Sodium 139 L (140-148) mmol/L Potassium 3.4 L (3.6-5.2) mmol/L Chloride 101 (100-108) mmol/L Carbon Dioxide 30 (21-32) mmol/L Anion Gap 11.4 (5.0-14.0) mmol/L BUN 38 H (7-18) mg/dL Creatinine 1.4 H (0.8-1.3) mg/dL Est Cr Clr Drug Dosing 34.10 mL/min Estimated GFR (MDRD) 48 L (>60) Glucose 98 (74-106) mg/dL Calcium 9.0 (8.5-10.1) mg/dL Med Orders - Current: Current Medications Acetaminophen (Tylenol) 650 mg PO Q4H PRN PRN Reason: Pain (Mild 1-3)/fever Albuterol (Proventil Neb Soln) 2.5 mg NEB Q4H PRN PRN Reason: Shortness Of Breath/wheezing Last Admin: 03/10/18 21:36 Dose: 2.5 mg Aspirin (Ecotrin) 325 mg PO DAILY [facility] Last Admin: 03/11/18 09:54 Dose: 325 mg Azathioprine (Imuran) 50 mg PO DAILY [facility] Last Admin: 03/11/18 09:56 Dose: 50 mg Bacitracin (Bacitracin Oint 1 Gm) 1 dose TOP QID PRN PRN Reason: Irritability Divalproex Sodium (Divalproex Sodium) 250 mg PO BIDMEALS [facility] Last Admin: 03/11/18 08:16 Dose: 250 mg Furosemide (Lasix) 40 mg PO BIDDIURETIC [facility] Last Admin: 03/11/18 08:22 Dose: 40 mg Gabapentin (Neurontin) 300 mg PO TID [facility] Last Admin: 03/11/18 09:57 Dose: 300 mg Lactobacillus Rhamnosus (Culturelle) 1 cap PO BID [facility] Last Admin: 03/11/18 09:54 Dose: 1 cap Levofloxacin (Levaquin) 750 mg PO Q48H [facility] Last Admin: 03/09/18 17:58 Dose: 750 mg Levothyroxine Sodium (Levothyroxine) 112 mcg PO ACBRK [facility] Last Admin: 03/11/18 07:42 Dose: 112 mcg Magnesium Hydroxide (Milk Of Magnesia) 30 ml PO Q12H PRN PRN Reason: Constipation Melatonin (Melatonin) 9 mg PO BEDTIME [facility] Last Admin: 03/10/18 21:28 Dose: 9 mg Metoprolol Tartrate (Lopressor) 12.5 mg PO BID [facility] Last Admin: 03/11/18 10:58 Dose: 12.5 mg Montelukast Sodium (Singulair) 10 mg PO DAILY [facility] Last Admin: 03/11/18 09:57 Dose: 10 mg Ondansetron HCl (Zofran) 4 mg IV Q4H PRN PRN Reason: Nausea/Vomiting Paroxetine HCl (Paxil) 20 mg PO BEDTIME [facility] Last Admin: 03/10/18 21:29 Dose: 20 mg Polyethylene Glycol (Miralax) 17 gm PO DAILY PRN PRN Reason: Constipation Potassium Chloride (Klor-Con M20) 20 meq PO DAILY@0800 [facility] Last Admin: 03/11/18 08:16 Dose: 20 meq Prednisone (Prednisone) 5 mg PO DAILY@0800 [facility] Last Admin: 03/11/18 08:15 Dose: 5 mg Ranitidine HCl (Zantac) 150 mg PO BID [facility] Last Admin: 03/11/18 09:58 Dose: 150 mg Senna/Docusate Sodium (Senna Plus) 1 tab PO BID PRN PRN Reason: Constipation Sodium Chloride (Saline Flush) 10 ml FLUSH ASDIRECTED PRN PRN Reason: Keep Vein Open Terazosin HCl (Hytrin) 5 mg PO DAILY [facility] Last Admin: 03/11/18 09:55 Dose: 5 mg Trimethoprim/Sulfamethoxazole (Septra Ds) 1 tab PO DAILY [facility] Last Admin: 03/11/18 09:57 Dose: 1 tab Discontinued Medications Albuterol/Ipratropium (Duoneb 3.0-0.5 Mg/3 Ml) 3 ml NEB ONETIME STA Stop: 03/04/18 23:05 Last Admin: 03/04/18 23:24 Dose: 3 ml Albuterol/Ipratropium (Duoneb 3.0-0.5 Mg/3 Ml) 3 ml NEB ONETIME STA Stop: 03/05/18 06:46 Last Admin: 03/05/18 07:09 Dose: 3 ml Digoxin (Lanoxin) 250 mcg IVPUSH ONETIME ONE Stop: 03/05/18 09:31 Last Admin: 03/05/18 08:50 Dose: 250 mcg Digoxin (Lanoxin) Confirm Administered Dose 500 mcg .ROUTE .STK-MED ONE Stop: 03/05/18 17:15 Last Admin: 03/05/18 17:52 Dose: Not Given Digoxin (Lanoxin) 250 mcg IVPUSH ONETIME ONE Stop: 03/05/18 17:04 Last Admin: 03/05/18 17:54 Dose: 250 mcg Diphenhydramine HCl (Benadryl) 25 mg PO ONETIME ONE Stop: 03/05/18 03:46 Last Admin: 03/05/18 04:04 Dose: 25 mg Divalproex Sodium (Divalproex Sodium) 250 mg PO BIDMEALS [facility] Last Admin: 03/08/18 09:02 Dose: 250 mg Divalproex Sodium (Divalproex Sodium) 250 mg PO BIDMEALS [facility] Enoxaparin Sodium (Lovenox) 30 mg SUBCUT DAILY [facility] Furosemide (Lasix) 40 mg PO BIDMEALS [facility] Last Admin: 03/05/18 10:19 Dose: Not Given Furosemide (Lasix) 60 mg IVPUSH ONETIME ONE Stop: 03/04/18 23:15 Last Admin: 03/04/18 23:26 Dose: 60 mg Furosemide (Lasix) 60 mg IVPUSH ONETIME ONE Stop: 03/05/18 08:01 Last Admin: 03/05/18 08:06 Dose: 60 mg Furosemide (Lasix) 40 mg IVPUSH NOW ONE Stop: 03/05/18 20:01 Last Admin: 03/05/18 20:28 Dose: 40 mg Furosemide (Lasix) 40 mg IVPUSH NOW ONE Stop: 03/06/18 13:46 Last Admin: 03/06/18 13:59 Dose: 40 mg Furosemide (Lasix) 40 mg IVPUSH NOW ONE Stop: 03/07/18 12:01 Last Admin: 03/07/18 12:32 Dose: 40 mg Furosemide (Lasix) 40 mg PO BID [facility] Last Admin: 03/09/18 08:24 Dose: 40 mg Furosemide (Lasix) 40 mg IVPUSH ONETIME ONE Stop: 03/09/18 16:01 Last Admin: 03/09/18 16:29 Dose: 40 mg Furosemide (Lasix) 40 mg IVPUSH ONETIME ONE Stop: 03/10/18 10:01 Last Admin: 03/10/18 12:18 Dose: 40 mg Furosemide (Lasix) 40 mg IVPUSH ONETIME ONE Stop: 03/10/18 18:01 Last Admin: 03/10/18 18:06 Dose: Not Given Hydrocortisone Sodium Succinate (Solu-Cortef) 100 mg IVPUSH ONETIME ONE Stop: 03/03/18 18:53 Last Admin: 03/03/18 20:25 Dose: 100 mg Lactated Ringer's (Ringers, Lactated) 1,000 mls @ 500 mls/hr IV ASDIRECTED [facility] Last Admin: 03/03/18 16:33 Dose: 500 mls/hr Piperacillin Sod/Tazobactam (Sod 4.5 gm/ Sodium Chloride) 100 mls @ 200 mls/hr IV Q6H EDIL Piperacillin/Tazobactam/ (Dextrose 4.5 gm/ Premix) 100 mls @ 200 mls/hr IV Q6H [facility] Stop: 03/03/18 17:30 Last Admin: 03/03/18 16:57 Dose: 200 mls/hr Lactated Ringer's (Ringers, Lactated) 1,000 mls @ 125 mls/hr IV ASDIRECTED [facility] Last Admin: 03/04/18 08:26 Dose: 125 mls/hr Levofloxacin/Dextrose 750 mg/ (Premix) 150 mls @ 100 mls/hr IV ONETIME ONE Stop: 03/03/18 20:21 Last Admin: 03/03/18 20:27 Dose: 100 mls/hr Levofloxacin/Dextrose 500 mg/ (Premix) 100 mls @ 100 mls/hr IV Q48H [facility] Piperacillin Sod/Tazobactam (Sod 2.25 gm/ Sodium Chloride) 50 mls @ 100 mls/hr IV Q8H [facility] Stop: 03/05/18 10:00 Last Admin: 03/05/18 09:15 Dose: 100 mls/hr Lactated Ringer's (Ringers, Lactated) 1,000 mls @ 500 mls/hr IV .BOLUS EDIL Stop: 03/03/18 23:31 Last Admin: 03/03/18 22:43 Dose: 500 mls/hr Lactated Ringer's (Ringers, Lactated) 200 mls @ 200 mls/hr IV ONETIME ONE Stop: 03/05/18 04:44 Last Admin: 03/05/18 04:03 Dose: 200 mls/hr Piperacillin Sod/Tazobactam (Sod 2.25 gm/ Sodium Chloride) 50 mls @ 100 mls/hr IV Q6H [facility] Last Admin: 03/06/18 08:57 Dose: 100 mls/hr Levofloxacin/Dextrose 750 mg/ (Premix) 150 mls @ 100 mls/hr IV Q48H [facility] Last Admin: 03/07/18 17:57 Dose: 100 mls/hr Levofloxacin (Levaquin) 750 mg PO Q48H [facility] Lidocaine HCl (Xylocaine 2% Jelly) 10 ml MUCMEM ONETIME ONE Stop: 03/05/18 08:01 Last Admin: 03/05/18 08:06 Dose: 10 ml Lidocaine HCl (Xylocaine 2% Jelly) 10 ml MUCMEM ONETIME ONE Stop: 03/10/18 22:08 Last Admin: 03/11/18 01:30 Dose: Not Given Potassium Chloride (Klor-Con M20) 20 meq PO ONETIME ONE Stop: 03/10/18 10:01 Last Admin: 03/10/18 12:18 Dose: 20 meq Spironolactone (Aldactone) 25 mg PO BID [facility] Last Admin: 03/05/18 09:11 Dose: 25 mg Warfarin Sodium (Coumadin) 2.5 mg PO DAILY@1600 [facility] Warfarin Sodium (Coumadin) 2.5 mg PO DAILY@1600 [facility] Last Admin: 03/05/18 18:30 Dose: 2.5 mg Warfarin Sodium (Coumadin) 5 mg PO ONETIME ONE Stop: 03/06/18 14:01 Last Admin: 03/06/18 13:59 Dose: 5 mg Warfarin Sodium (Coumadin) 2.5 mg PO ONETIME ONE Stop: 03/07/18 12:01 Last Admin: 03/07/18 12:32 Dose: 2.5 mg - Exam Quality Assessment: Denies: Supplemental Oxygen General: Reports: Alert, Oriented, Cooperative, No Acute Distress Lungs: Reports: Clear to Auscultation, Normal Respiratory Effort Cardiovascular: Reports: Regular Rate, Irregular Rhythm, Murmurs GI/Abdominal Exam: Soft, No Distention Extremities: Pedal Edema (trace bilateral ankle edema) Skin: Reports: Warm, Dry Psy/Mental Status: Reports: Alert, Normal Affect
== END 2018-03-11 15:15 | DRG 871 ==
LOC: JP.ED 16:00 → JP.MS 18:23
PROVIDERS: ADMIT Hospitalist; ATTEND Internal Medicine
DX: A41.9 Sepsis, unspecified organism (principal); J18.1 Lobar pneumonia, unspecified organism; I50.21 Acute systolic (congestive) heart failure; E27.3 Drug-induced adrenocortical insufficiency; N17.9 Acute kidney failure, unspecified; F05 Delirium due to known physiological condition; I48.2 Chronic atrial fibrillation; I35.0 Nonrheumatic aortic (valve) stenosis; J45.909 Unspecified asthma, uncomplicated; E03.9 Hypothyroidism, unspecified; I77.6 Arteritis, unspecified; Z79.52 Long term (current) use of systemic steroids; R06.02 Shortness of breath; R53.1 Weakness; R53.83 Other fatigue; N18.3 Chronic kidney disease, stage 3 (moderate); R74.8 Abnormal levels of other serum enzymes; R09.02 Hypoxemia; E87.70 Fluid overload, unspecified; N42.9 Disorder of prostate, unspecified; E87.6 Hypokalemia; M19.90 Unspecified osteoarthritis, unspecified site; Z85.828 Personal history of other malignant neoplasm of skin; H54.7 Unspecified visual loss; H91.90 Unspecified hearing loss, unspecified ear; Z79.82 Long term (current) use of aspirin; Z79.01 Long term (current) use of anticoagulants; Z96.649 Presence of unspecified artificial hip joint
CPT/HCPCS: 36415; 36600; 71045 ×2; 80053; 81001; 82803; 83605; 84484; 85025; 86140; 87040 ×2; 93005; 93010; 96361; 96365; 99285 ×2; J2543; J7120; 51702; 80048; 80162; 83735; 85027; 85610; 87493; 94640; 94762; 97110-GP; 97116-GP; 97161-GP; 97530-GP; A9270-GY; J1160; J1720; J1940; J1956; J7050; J7500; J7620-GY